=== PATIENT | female | born 1965 | race Caucasian/White ===

== ENCOUNTER 2016-09-04 18:27 | Emergency (ER) | payer BC ==
[2016-07-18 08:38] VITALS: BMI 29.8
[~2016-09-04 18:27] MED LIST: ADVAIR 250/501 DISK INH; AMITRIPTYLINE100 MG PO; ASPIRIN325 MG PO; ATIVAN1 MG PO; CRESTOR20 MG PO; DEPAKOTE500 MG PO; DICLOFENAC SODI50 MG PO; DILAUDID2 MG PO; EFFEXOR XR150 MG PO; EFFEXOR75 MG PO; GABAPENTIN100 MG PO; GLUCOPHAGE500 MG PO; GLUCOTROL 5 MG T5 MG PO; HYDROCHLOROTHIA25 MG PO; HYDROCODONE-APA1 TAB PO; IMDUR60 MG PO; ISOSORBIDE MONO60 M1 PO; KEPPRA250 MG PO; KLONOPIN1 MG PO; KLOR-CON 1010 MEQ PO; LEVEMIR100 U/M1 SC; LEVEMIR100 U/M1 SQ; LOPID600 MG; LOPID600 MG PO; LOPRESSOR50 MG PO; LYRICA50 MG PO; MELATONIN 3 MG1 TAB PO; METAGLIP 5/5001 TAB PO; METOPROLOL TART50 MG PO; MOBIC7.5 MG PO; NICODERM C1 PATCH .2 TD; NOVOLIN R100 U/ML SQ; NOVOLOG100 U/M1 SQ; OMNICEF300 MG PO; PERCOCET 10/3251 TA1 PO; PLAVIX75 MG PO; PREDNISONE20 MG PO; PROVENTIL/2.5 MG/3 M INH; RESTORIL7.5 MG PO; SEROQUEL200 MG PO; SINGULAIR10 MG PO; STERAPRED 5MG 125 MG; SYNTHROID125 MCG PO; TOPAMAX50 MG PO; TYLENOL W/CODEI1 TAB PO; VISTARIL25 MG PO; XANAX1 MG PO; ZPAK PO
== END 2016-09-04 18:51 | disposition left against medical advice (07) ==
LOC: D.ER 18:27
DX: Z02.9 Encounter for administrative examinations, unspecified (principal)

== ENCOUNTER 2016-09-26 06:29 | Day surgery (SDC) | payer BC ==
[2016-09-23 11:17] LABS: HEMATOCRIT 42.9 % (36.0-48.0); HEMOGLOBIN 14.4 g/dL (12-16); MCH 30.6 pg (26.0-34.0); MCHC 33.6 g/dL (31.0-37.0); MCV 91.3 fL (80.0-100.0); RBC 4.7 10x6/uL (4.00-5.40); RDW 14.9 % (11.5-14.5); WBC 13.3 10x3/uL (4.8-10.8)
[2016-09-23 11:25] LABS: ANION GAP 11.8 mmol/L (8-16); CALCIUM 9.2 mg/dL (8.5-10.1); CARBON DIOXIDE 30.5 mmol/L (21.0-32.0); POTASSIUM - SERUM 3.3 mmol/L (3.5-5.1)
[~2016-09-26] VITALS: Ht 170.2 cm; Wt 90.3 kg
[2016-09-26 08:57] VITALS: BP 150/88; Ht 170.2 cm; Wt 90.3 kg
--- NOTE | 2016-09-26 09:20 | NUR ---
REPORTED TO [facility] WHO WILL REPORT TO ANESTHESIA AND MD POTASSIUM 3.O BS 172 WBC 13.3
--- NOTE | 2016-09-26 10:02 | NUR ---
[address] DR[address] MATHIS IN SURGERY DR. MERINO NOTIFIED OF BS WBC ELEVATED AND POTASSIUM 3.0.
[2016-09-26] MEDS ORDERED: PERCOCET 10/3251 TA1 PO (11:55)
--- NOTE | 2016-09-26 13:03 | NUR ---
1250-HELP PT TO BATHROOM USING WALKER. PT DID OK WITH MIN ASSISTANCE. PT VOIDED AND RETURN TO BED. PT REQUESTING TRAY AND DR ELAINE.. TRAY GIVEN WILL CONTINUE TO MONITOR PT DENIES ANY N/V AT THIS TIME. FAMILY AT BEDSIDE
--- NOTE | 2016-09-26 15:56 | NUR ---
1419 REQUESTS DISCHARGE. IV DC'ED WITH CATH INTACT WITH 600ML LTC. DRESSING TO LEFT KNEE CDI. DRESSING. Elmira ASHFORD R.N. 1459 DRESSED, AWAKE & ALERT. GIVEN DISCHARGE INSTRUCTION INFORMATION PACKET INCLUDING, RX: PERCOCET 10/325MG, MED REC., POST-OP INSTRUCTIONS FOR ARTHROSCOPY OF KNEE, OPS D/C INSTRUCTIONS, & RTC APPT. PT DESIRED PHENERGAN. RX CALLED TO [facility] [address]. PT.'S WALKER DELIVERED TO ROOM. HOME WITH PT. PT VOICED UNDERSTANDING OF D/C INSTRUCTIONS. TO PRIVATE CAR PER WHEELCHAIR BY VOLUNTEER. HOME WITH SISTER. Elmira ASHFORD R.N.
--- NOTE | 2016-10-02 11:01 | OP ---
PATIENT NAME: EDITH BETANCUR MEDICAL RECORD: [id number] :65 LOCATION:D.OPS ADMISSION DATE: SURGEON: SONG MATHIS MD DATE OF OPERATION: 09/26/2016 Orthopedic Surgery Operative Note PREOPERATIVE DIAGNOSIS: Painful, symptomatic contusion of the medial femoral condyle. POSTOPERATIVE DIAGNOSIS: Painful, symptomatic contusion of the medial femoral condyle. PROCEDURE: 1. ORIF with AccuFill bone fixation. 2. Knee arthroscopy for evaluation and relook after the AccuFill was placed. SURGEON: Song Mathis MD. ANESTHESIA: General. INTRAOPERATIVE COMPLICATIONS: None. 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 OPERATIVE SUMMARY IN DETAIL: After obtaining the appropriate preoperative orthopedic surgery consent as well as anesthetic consultation, evaluation and clearance, the patient was brought to the operating room and placed on the operating table in supine position. After general laryngeal mask airway was administered, tourniquet was placed about the proximal aspect of the left lower extremity. Left lower extremity was then prepped and draped in a routine sterile fashion. The leg was elevated and exsanguinated, tourniquet inflated to 350 mmHg. Routine inferolateral portal was established followed by superior medial portal. Diagnostic arthroscopy at this point was done and showed that the patient did not have any meniscal damage. There was some chondromalacia of the medial femoral condyle. Under direct fluoroscopic visualization, then the trocar for the AccuFill side delivery system was placed in the medial femoral condyle, corresponding to the placement of the MRI where the patient had a large bony contusion. AccuFill was then placed into the medial femoral condyle. Trocar was allowed to stay the appropriate time. It was then pulled, the arthroscopy portals were closed in routine interrupted fashion using 4-0 Prolene. Sterile dressings were applied. The patient was awakened and taken to recovery room in stable condition. All final needle and sponge counts were correct. TRANSINT:[id number] Voice Confirmation ID: [id number] DOCUMENT ID: [id number] OPERATIVE REPORT [id number] EDITH BETANCUR SONG MATHIS MD at 1109 CC: [id number] DICTATION DATE: 09/26/16 1159 [employer] SYSTEM[employer] MANAGER: 09/26/16 1859 [facility] 09/26/16 [place] [id number] [place] [id number]
== END 2016-09-26 14:55 | disposition home or self-care (01) ==
LOC: D.OPS 06:29 → D.PAN 10:45 → D.OPS 11:50 → D.PAN 14:15 → D.OPS 14:55
PROVIDERS: Anesthesiology
DX: S80.02XA Contusion of left knee, initial encounter (principal); M94.262 Chondromalacia, left knee

== ENCOUNTER 2016-11-29 15:49 | Emergency (ER) | payer BC ==
[2016-09-26 08:57] VITALS: BMI 31.2
== END 2016-11-29 19:55 | disposition left against medical advice (07) ==
LOC: D.ER 15:49
DX: S69.90XA Unspecified injury of unspecified wrist, hand and finger(s), initial encounter (principal); W01.0XXA Fall on same level from slipping, tripping and stumbling without subsequent striking against object, initial encounter; Y93.89 Activity, other specified; Y92.89 Other specified places as the place of occurrence of the external cause

== ENCOUNTER 2016-12-19 19:25 | Emergency (ER) | payer BC ==
[2016-09-26 08:57] VITALS: BMI 31.2
[2016-12-19 20:01] LABS: APPEARANCE CLEAR (CLEAR); BILIRUBIN NEGATIVE (NEGATIVE); COLOR YELLOW (YELLOW); GLUCOSE NEGATIVE (NEGATIVE); KETONE NEGATIVE (NEGATIVE); LEUKOCYTE ESTERASE 1+ (NEGATIVE); NITRITE NEGATIVE (NEGATIVE); PROTEIN TRACE mg/dL (NEGATIVE); SPECIFIC GRAVITY 1.015 (1.005-1.020); UROBILINOGEN NORMAL (NORMAL)
[2016-12-19 20:02] LABS: EPITHELIAL CELLS 0-5 /hpf (0-5); RED CELLS - URINE 0-5 /hpf (0-5)
[2016-12-19 20:03] LABS: BACTERIA MANY /hpf (NONE SEEN); YEAST <1+ /hpf (NONE SEEN)
== END 2016-12-19 21:05 | disposition home or self-care (01) ==
LOC: D.ER 19:25
PROVIDERS: Nurse Practitioner Acute Care
DX: N76.0 Acute vaginitis (principal); B96.89 Other specified bacterial agents as the cause of diseases classified elsewhere; R51 Headache; J45.909 Unspecified asthma, uncomplicated; E11.9 Type 2 diabetes mellitus without complications; E78.5 Hyperlipidemia, unspecified; I10 Essential (primary) hypertension; M06.9 Rheumatoid arthritis, unspecified; F17.200 Nicotine dependence, unspecified, uncomplicated

== ENCOUNTER 2016-12-29 13:00 | Outpatient (CLI) | payer BC ==
[2016-09-26 08:57] VITALS: BMI 31.2
== END 2016-12-29 23:59 | disposition home or self-care (01) ==
LOC: D.US 13:00
DX: R10.12 Left upper quadrant pain (principal)

== ENCOUNTER → 2017-01-09 19:19 | Outpatient (CLI) | payer BC ==
[2016-09-26 08:57] VITALS: BMI 31.2
[2017-01-09 21:25] LABS: APPEARANCE HAZY (CLEAR); COLOR YELLOW (YELLOW)
[2017-01-09 21:26] LABS: BILIRUBIN NEGATIVE (NEGATIVE); GLUCOSE 100 mg/dL (NEGATIVE); KETONE NEGATIVE (NEGATIVE); LEUKOCYTE ESTERASE TRACE (NEGATIVE); NITRITE NEGATIVE (NEGATIVE); PROTEIN 2+ mg/dL (NEGATIVE); UROBILINOGEN NORMAL (NORMAL)
[2017-01-09 21:28] LABS: BACTERIA MODERATE /hpf (NONE SEEN); EPITHELIAL CELLS 0-5 /hpf (0-5); GRANULAR CAST 0-5 /lpf (NONE SEEN); HYALINE CAST OCC /lpf (NONE SEEN); RED CELLS - URINE OCC /hpf (0-5); YEAST >1+ /hpf (NONE SEEN)
== END | disposition home or self-care (01) ==
LOC: D.LABREF 19:19
PROVIDERS: Urology
DX: N39.0 Urinary tract infection, site not specified (principal)

== ENCOUNTER → 2017-01-13 12:36 | Outpatient (CLI) | payer BC ==
[2016-09-26 08:57] VITALS: BMI 31.2
== END | disposition home or self-care (01) ==
LOC: D.NM 12:36
DX: R10.12 Left upper quadrant pain (principal)

== ENCOUNTER → 2017-02-02 08:42 | Outpatient (CLI) | payer BC ==
[2016-09-26 08:57] VITALS: BMI 31.2
[2017-02-02 09:52] LABS: BASOPHILS 0.5 % (0-2); EOSINOPHILS 1.6 % (0-7); HEMATOCRIT 40.2 % (36.0-48.0); HEMOGLOBIN 13.5 g/dL (12-16); IMMATURE GRANULOCYTES 0.4 % (0-5); LYMPHOCYTES 40.3 % (15-50); MCH 30.8 pg (26.0-34.0); MCHC 33.6 g/dL (31.0-37.0); MCV 91.6 fL (80.0-100.0); MEAN PLATELET VOLUME 10.3 fL (7.4-10.4); MONOCYTES 3.5 % (2-11); NEUTROPHILS 53.7 % (40-80); PLATELET COUNT 256 10x3/uL (130-400); RBC 4.39 10x6/uL (4.00-5.40); RDW 15.9 % (11.5-14.5); WBC 14.8 10x3/uL (4.8-10.8)
[2017-02-02 10:02] LABS: APTT 30.9 SECONDS (22.8-39.4); INR 1.03 (0.85-1.17); PROTIME 13.3 SECONDS (11.6-15.0)
[2017-02-02 10:33] LABS: ALBUMIN 3.6 g/dL (3.4-5.0); ALKALINE PHOSPHATASE 182 U/L (46-116); ALT (SGPT) 28 U/L (10-68); BILIRUBIN - DIRECT 0.12 mg/dL (0.00-0.30); BILIRUBIN - INDIRECT 0.32 mg/dL (0.00-1.00); BILIRUBIN - TOTAL 0.44 mg/dL (0.2-1.3); CALC OSMOLALITY 278 mosm/kg (275-300); CARBON DIOXIDE 27.7 mmol/L (21.0-32.0); CHLORIDE - SERUM 101 mmol/L (98-107); CHOLESTEROL, TOTAL 275 mg/dL (0-200); CREATININE - SERUM 1.3 mg/dL (0.6-1.3); FERRITIN 51 ng/mL (3-244); GAMMA GT 664 U/L (5-85); GLUCOSE 140 mg/dL (74-106); HDL CHOLESTEROL 25 mg/dL (32-96); POTASSIUM - SERUM 3.1 mmol/L (3.5-5.1); SODIUM 140 mmol/L (136-145); UREA NITROGEN 6 mg/dL (7-18); eGFR NON AFRICAN AMERICAN 46 mL/min (90-120)
[2017-02-02 10:34] LABS: TRIGLYCERIDE 531 mg/dL (30-200)
[2017-02-02 10:43] LABS: % SATURATION 13 % (15-55); IRON 48 ug/dl (35-150); TOTAL IRON BIND CAPACITY 353 ug/dl (260-445); UNSAT IRON BIND CAPACITY 305 ug/dl (150-375)
[2017-02-03 09:17] LABS: ALPHA FETOPROTEIN -(TUMOR MRK) 6.8 ng/mL (0.0-8.3); HEPATITIS C ANTIBODY <0.1 (0.0-0.9)
[2017-02-03 10:21] LABS: ANA REFLEX - DIRECT Negative (Negative); FOLATE (FOLIC ACID) - SERUM 7.4 ng/mL (>3.0)
[2017-02-03 12:16] LABS: HAPTOGLOBIN 272 mg/dL (34-200)
== END | disposition home or self-care (01) ==
LOC: D.US 01-20 09:00 → D.LAB 01-20 09:00 → D.US 08:42
PROVIDERS: Internal Medicine Gastroenterology
DX: R74.8 Abnormal levels of other serum enzymes (principal)

== ENCOUNTER 2017-02-08 07:18 | Outpatient (CLI) | payer BC ==
[~2017-02-08] VITALS: Ht 170.2 cm; Wt 89.5 kg
[2017-02-08] MEDS ORDERED: KLONOPIN1 MG PO (08:23)
[2017-02-08] MEDS ORDERED: CELEXA40 MG PO (08:23)
[2017-02-08] MEDS ORDERED: GABAPENTIN100 MG PO (08:23)
[2017-02-08] MEDS ORDERED: VITAMIN D250000 UNIT PO (08:24)
[2017-02-08] MEDS ORDERED: SEROQUEL200 MG PO (08:25)
[2017-02-08 08:31] VITALS: BP 156/87; Ht 170.2 cm; Wt 89.5 kg
[2017-02-08 09:03] LABS: BASOPHILS 0.8 % (0-2); EOSINOPHILS 2.1 % (0-7); HEMATOCRIT 41.5 % (36.0-48.0); HEMOGLOBIN 14.3 g/dL (12-16); IMMATURE GRANULOCYTES 0.3 % (0-5); LYMPHOCYTES 36.9 % (15-50); MCH 31.6 pg (26.0-34.0); MCHC 34.5 g/dL (31.0-37.0); MCV 91.8 fL (80.0-100.0); MEAN PLATELET VOLUME 10.4 fL (7.4-10.4); NEUTROPHILS 54.9 % (40-80); PLATELET COUNT 263 10x3/uL (130-400); RBC 4.52 10x6/uL (4.00-5.40); WBC 13.3 10x3/uL (4.8-10.8)
[2017-02-08 09:16] LABS: ANION GAP 16.2 mmol/L (8-16); CALCIUM 9.1 mg/dL (8.5-10.1); CREATININE - SERUM 1.3 mg/dL (0.6-1.3); POTASSIUM - SERUM 3.2 mmol/L (3.5-5.1)
[2017-02-08 09:35] LABS: INR 1.07 (0.85-1.17); PROTIME 13.8 SECONDS (11.6-15.0)
--- NOTE | 2017-02-08 16:39 | NUR ---
1155--ALL VITAL SIGNS CHARTED ON POST PROCEDURE VITAL SIGN SHEET ON CHART. ETHEL RN
--- NOTE | 2017-02-08 16:44 | NUR ---
1440--IV BAG EMPTY, IV DC'D. ETHEL RN 3362--DISCHARGE INSTRUCTIONS GIVEN, PT VERBALIZES UNDERSTANDING. PT OFF UNIT VIA WC. ETHEL GARCIA
== END 2017-02-08 15:40 | disposition home or self-care (01) ==
LOC: D.OPS 07:18 → D.CT 10:00 → D.OPS 15:40
PROVIDERS: Specialist
DX: D72.820 Lymphocytosis (symptomatic) (principal); D72.829 Elevated white blood cell count, unspecified; R53.83 Other fatigue; R94.5 Abnormal results of liver function studies; Z01.812 Encounter for preprocedural laboratory examination

== ENCOUNTER 2017-02-20 05:33 | Outpatient (CLI) | payer BC ==
[~2017-02-20] VITALS: Ht 170.2 cm; Wt 88.6 kg
[~2017-02-20 05:33] MED LIST changes: +CELEXA40 MG PO; +VITAMIN D250000 UNIT PO
[2017-02-20 06:50] LABS: BASOPHILS 0.7 % (0-2); EOSINOPHILS 2.9 % (0-7); HEMATOCRIT 40.3 % (36.0-48.0); HEMOGLOBIN 13.7 g/dL (12-16); IMMATURE GRANULOCYTES 0.3 % (0-5); LYMPHOCYTES 41.2 % (15-50); MCV 91.2 fL (80.0-100.0); MEAN PLATELET VOLUME 10.8 fL (7.4-10.4); MONOCYTES 3.7 % (2-11); NEUTROPHILS 51.2 % (40-80); PLATELET COUNT 280 10x3/uL (130-400); RBC 4.42 10x6/uL (4.00-5.40); RDW 15.6 % (11.5-14.5); WBC 12.6 10x3/uL (4.8-10.8)
[2017-02-20 07:02] LABS: APTT 33.8 SECONDS (22.8-39.4); INR 1.06 (0.85-1.17); PROTIME 13.7 SECONDS (11.6-15.0)
[2017-02-20 07:07] LABS: ANION GAP 12.8 mmol/L (8-16); CALCIUM 8.9 mg/dL (8.5-10.1); CREATININE - SERUM 1.4 mg/dL (0.6-1.3)
[2017-02-20 07:12] LABS: POTASSIUM - SERUM 2.8 mmol/L (3.5-5.1)
[2017-02-20 07:25] VITALS: BP 152/86; Ht 170.2 cm; Wt 88.6 kg
--- NOTE | 2017-02-20 07:46 | NUR ---
0715 LAB CALLED CRITICAL POPTASSIUM TO ADAN FIELDS R.N. [address] JOHNSON BY JO-ANN DUNBAR OF POTASSIUM 2.8 AND WBC 12.6 AMD CREATININE 1.4.
--- NOTE | 2017-02-20 08:26 | NUR ---
0815 REPORT[address] DOWNS ORDERS RECIEVED. MED GIVEN AND TO PROCEED WITH BIOPSY.
== END 2017-02-20 14:10 | disposition home or self-care (01) ==
LOC: D.OPS 05:33 → D.SP 08:00 → D.OPS 08:00
PROVIDERS: Specialist
DX: R74.8 Abnormal levels of other serum enzymes (principal); E11.9 Type 2 diabetes mellitus without complications; Z01.812 Encounter for preprocedural laboratory examination

== ENCOUNTER 2017-03-06 05:59 | Day surgery (SDC) | payer BC ==
[2017-03-06 06:34] LABS: EOSINOPHILS 2.8 % (0-7); HEMATOCRIT 37.3 % (36.0-48.0); IMMATURE GRANULOCYTES 0.3 % (0-5); LYMPHOCYTES 41.9 % (15-50); MCH 31.6 pg (26.0-34.0); MCHC 34.9 g/dL (31.0-37.0); MCV 90.8 fL (80.0-100.0); MEAN PLATELET VOLUME 10.3 fL (7.4-10.4); MONOCYTES 5.6 % (2-11); NEUTROPHILS 48.4 % (40-80); RBC 4.11 10x6/uL (4.00-5.40); RDW 15.3 % (11.5-14.5)
[2017-03-06 06:35] LABS: PLATELET COUNT 222 10x3/uL (130-400)
[2017-03-06 06:55] LABS: ANION GAP 12.3 mmol/L (8-16); CALCIUM 10.6 mg/dL (8.5-10.1); CARBON DIOXIDE 31.5 mmol/L (21.0-32.0); CREATININE - SERUM 1.3 mg/dL (0.6-1.3)
[2017-03-06 07:08] LABS: POTASSIUM - SERUM 2.8 mmol/L (3.5-5.1)
[2017-03-06 07:18] VITALS: BP 145/75; Ht 170.2 cm
[2017-03-06] MEDS ORDERED: PROTONIX40 MG PO (09:18)
--- NOTE | 2017-03-07 16:20 | OP ---
PATIENT NAME: EDITH BETANCUR MEDICAL RECORD: [id number] :65 LOCATION:DCARYL ADMISSION DATE: SURGEON: ASHLY DOWNS DO DATE OF OPERATION: 03/06/2017 PROCEDURE: EGD with biopsies. INDICATIONS FOR PROCEDURE: Epigastric pain, heartburn, nausea and vomiting. SCOPE: Olympus video gastroscope. MEDICATIONS: Propofol 200 mg IV per anesthesia. ESTIMATED BLOOD LOSS: Less than 2 mL. COMPLICATIONS: None. FINDINGS: Informed consent was given. The patient was made comfortable with the above medication. After reaching an adequate level of sedation by slow IV push, the patient was placed on her left side. The endoscope was then advanced under direct visualization through the mouth to the second portion of the duodenum. The upper, middle, and lower thirds of the esophagus appeared normal. At the GE junction, there was evidence of mild LA class A reflux-induced esophagitis. The endoscope was advanced beyond the GE junction into the stomach and retroflexed to view the cardia, which appeared normal. In the fundus and body of the stomach, there were some benign appearing fundic gland type gastric polyps. A single biopsy was taken of one of the polyps to confirm this. In the body, antrum, and prepyloric region, there was some erythema and granularity consistent with gastritis within the stomach. A random biopsy was taken to submit for histology and to rule out H. pylori. The endoscope was advanced beyond the pylorus into the duodenum where the bulb and second portion of the duodenum appeared normal other than a mild appearance of some patchy areas of atrophy of the villous mucosa. Two biopsies were taken to submit for histology regarding the endoscopic appearance. The endoscope was then withdrawn from the patient. The patient tolerated the procedure well and there were no complications. IMPRESSION: 1. Mild LA class A reflux-induced esophagitis. 2. Gastric polyps which appeared to be benign fundic gland polyps, biopsy taken. 3. Erythema and granularity of the stomach consistent with gastritis, biopsies taken. 4. Atrophy of the villous mucosa in the duodenum, biopsies taken. PLAN AND RECOMMENDATIONS: 1. Discharge home when recovery parameters are met. 2. Follow up biopsy specimen results. 3. Continue current diet. 4. Protonix 40 mg daily times 30 days. 5. Follow up with Dr. Venegas regarding the biliary dyskinesia. 6. Further recommendations to follow pathology results once received. TRANSINT:[id number] Voice Confirmation ID: [id number] DOCUMENT ID: [id number] OPERATIVE REPORT [id number] EDITH BETANCUR NATHAN A DO at 1620 CC: [id number] DICTATION DATE: 03/06/17905 DREDGE MASTER: 03/06/17 1243 [facility] 03/06/17 [place] [id number] [place] [id number]
== END 2017-03-06 09:50 | disposition home or self-care (01) ==
LOC: D.OPS 05:59
PROVIDERS: Anesthesiology
DX: K21.0 Gastro-esophageal reflux disease with esophagitis (principal); K31.7 Polyp of stomach and duodenum; K63.89 Other specified diseases of intestine; Z01.812 Encounter for preprocedural laboratory examination; R12 Heartburn

== ENCOUNTER → 2017-03-14 10:12 | Outpatient (CLI) | payer BC ==
[~2017-03-14 10:12] MED LIST changes: +PROTONIX40 MG PO
== END | disposition home or self-care (01) ==
LOC: D.CT 03-08 10:30
DX: R93.5 Abnormal findings on diagnostic imaging of other abdominal regions, including retroperitoneum (principal); K86.89 Other specified diseases of pancreas

== ENCOUNTER 2017-03-17 06:07 | Day surgery (SDC) | payer BC ==
[~2017-03-17] VITALS: Ht 170.2 cm; Wt 89.8 kg
[2017-03-17 07:26] LABS: HEMATOCRIT 36.9 % (36.0-48.0); HEMOGLOBIN 12.4 g/dL (12-16); LYMPHOCYTES 37.6 % (15-50); MCH 31.3 pg (26.0-34.0); MCHC 33.6 g/dL (31.0-37.0); MCV 93.2 fL (80.0-100.0); MEAN PLATELET VOLUME 9.5 fL (7.4-10.4); NEUTROPHILS 55.6 % (40-80); PLATELET COUNT 251 10x3/uL (130-400); RBC 3.96 10x6/uL (4.00-5.40); WBC 11.3 10x3/uL (4.8-10.8)
[2017-03-17 07:41] LABS: ANION GAP 14.2 mmol/L (8-16); CALCIUM 9.3 mg/dL (8.5-10.1); CARBON DIOXIDE 28.3 mmol/L (21.0-32.0); CREATININE - SERUM 1.1 mg/dL (0.6-1.3); POTASSIUM - SERUM 3.5 mmol/L (3.5-5.1)
[2017-03-17 08:19] VITALS: BP 116/66; Ht 170.2 cm; Wt 89.8 kg
[2017-03-17] MEDS ORDERED: DILAUDID2 MG PO (10:22)
--- NOTE | 2017-03-18 14:41 | OP ---
PATIENT NAME: EDITH BETANCUR MEDICAL RECORD: [id number] :65 LOCATION:D.OPS ADMISSION DATE: SURGEON: AMANDO YUEN MD DATE OF OPERATION: 03/17/2017 PREOPERATIVE DIAGNOSES: 1. Biliary dyskinesia. 2. Coronary artery disease. 3. Hypertension. 4. Chronic obstructive pulmonary disease. 5. Diabetes mellitus. 6. Tobacco dependence syndrome. POSTOPERATIVE DIAGNOSES: 1. Biliary dyskinesia. 2. Coronary artery disease. 3. Hypertension. 4. Chronic obstructive pulmonary disease. 5. Diabetes mellitus. 6. Tobacco dependence syndrome. 7. Liver cirrhosis. SURGEON: Amando Yuen MD. REPORT OF PROCEDURE: The patient's abdomen was prepped and draped in sterile fashion. A cutdown was made on the superior aspect of the umbilicus, 0 Vicryls were placed on the fascia bilaterally and the fascia was incised with 15-blade. I then bluntly entered the peritoneal cavity and placed a 12-mm Elva port. Under direct visualization, a 5 mm trocar was placed in the epigastrium and 2 more 5-mm trocars were placed in the right subcostal region. The gallbladder was grasped and elevated. The liver was noted to be cirrhotic with a cobblestone type appearance and it was noted to be markedly enlarged. The gallbladder itself appeared to be normal with no signs of any inflammatory changes. The cystic artery and cystic duct were dissected free and these were clipped proximally and distally and ligated in standard fashion. The gallbladder was taken off the liver bed using electrocautery and placed in the right upper quadrant. Any bleeding from the liver bed was treated with electrocautery. At this point, a Micha-Cut liver biopsy tool was brought through the abdominal wall and biopsies were performed of the liver times 4. Any bleeding from the liver was then treated with electrocautery. The ports and insufflation were then removed and the gallbladder was taken out through the umbilicus. The umbilical fascia was closed with interrupted 0 Vicryls times 3. The wounds were irrigated out with normal saline and infused with 10 mL of 0.25% Marcaine with epinephrine. The skin incisions were closed with subcutaneous 5-0 Monocryl and dressed appropriately. COMPLICATIONS: None. CONDITION: Stable. ANESTHESIA: General endotracheal and local. BLOOD LOSS: Minimal. TRANSINT:[id number] Voice Confirmation ID: [id number] DOCUMENT ID: [id number] OPERATIVE REPORT [id number] EDITH BETANCUR CHRISTIAN MD at 1441 CC: MORGAN AYOUB DO [id number] DICTATION DATE: 03/17/17 1025 COMMUNICATIONS ASSOCIATE: 03/17/17 1617 [facility] 03/17/17 [place] [id number] [place] [id number]
== END 2017-03-17 14:21 | disposition home or self-care (01) ==
LOC: D.OPS 06:07 → D.PAN 08:30 → D.OPS 12:30 → D.PAN 12:30 → D.OPS 14:21
PROVIDERS: Surgery
DX: K82.8 Other specified diseases of gallbladder (principal); I25.10 Atherosclerotic heart disease of native coronary artery without angina pectoris; I10 Essential (primary) hypertension; J44.9 Chronic obstructive pulmonary disease, unspecified; E11.9 Type 2 diabetes mellitus without complications; F17.200 Nicotine dependence, unspecified, uncomplicated; K74.60 Unspecified cirrhosis of liver; Z01.812 Encounter for preprocedural laboratory examination

== ENCOUNTER 2017-03-18 01:15 | Emergency (ER) | payer BC ==
[2017-03-17 08:19] VITALS: BMI 31.1
[2017-03-18 01:56] LABS: BASOPHILS 0.1 % (0-2); EOSINOPHILS 0.8 % (0-7); HEMATOCRIT 36.8 % (36.0-48.0); HEMOGLOBIN 12.1 g/dL (12-16); IMMATURE GRANULOCYTES 0.6 % (0-5); LYMPHOCYTES 6.1 % (15-50); MCH 31.8 pg (26.0-34.0); MCHC 32.9 g/dL (31.0-37.0); MEAN PLATELET VOLUME 9.9 fL (7.4-10.4); MONOCYTES 4.2 % (2-11); NEUTROPHILS 88.2 % (40-80); PLATELET COUNT 233 10x3/uL (130-400); RDW 16.1 % (11.5-14.5); WBC 11.7 10x3/uL (4.8-10.8)
[2017-03-18 01:58] LABS: MCV 96.8 fL (80.0-100.0)
[2017-03-18 02:10] LABS: ALBUMIN 3.3 g/dL (3.4-5.0); ANION GAP 14.4 mmol/L (8-16); BILIRUBIN - TOTAL 0.7 mg/dL (0.2-1.3); CALCIUM 8.6 mg/dL (8.5-10.1); CARBON DIOXIDE 25.5 mmol/L (21.0-32.0); POTASSIUM - SERUM 3.9 mmol/L (3.5-5.1); PROTEIN - SERUM 7.6 g/dL (6.4-8.2)
[2017-03-18 02:12] LABS: CREATININE - SERUM 1.4 mg/dL (0.6-1.3)
== END 2017-03-18 05:10 | disposition home or self-care (01) ==
LOC: D.ER 01:15
PROVIDERS: Emergency Medicine
DX: G89.18 Other acute postprocedural pain (principal); E11.9 Type 2 diabetes mellitus without complications; I10 Essential (primary) hypertension

== ENCOUNTER 2017-03-19 17:35 | Emergency (ER) | payer BC ==
[2017-03-17 08:19] VITALS: BMI 31.1
== END 2017-03-19 19:50 | disposition home or self-care (01) ==
LOC: D.ER 17:35
DX: G89.18 Other acute postprocedural pain (principal); T81.31XA Disruption of external operation (surgical) wound, not elsewhere classified, initial encounter; I10 Essential (primary) hypertension; E11.9 Type 2 diabetes mellitus without complications

== ENCOUNTER 2017-04-10 06:12 | Day surgery (SDC) | payer BC ==
[~2017-04-10] VITALS: Ht 170.2 cm; Wt 88.6 kg
[2017-04-10 06:57] VITALS: BP 137/79; Ht 170.2 cm; Wt 88.6 kg
[2017-04-10 07:05] LABS: BASOPHILS 1.2 % (0-2); EOSINOPHILS 9.8 % (0-7); HEMATOCRIT 37.8 % (36.0-48.0); HEMOGLOBIN 13.1 g/dL (12-16); IMMATURE GRANULOCYTES 0.2 % (0-5); LYMPHOCYTES 39.4 % (15-50); MCH 31.7 pg (26.0-34.0); MCHC 34.7 g/dL (31.0-37.0); MCV 91.5 fL (80.0-100.0); MEAN PLATELET VOLUME 9.9 fL (7.4-10.4); MONOCYTES 3.1 % (2-11); NEUTROPHILS 46.3 % (40-80); RBC 4.13 10x6/uL (4.00-5.40); RDW 15.7 % (11.5-14.5); WBC 12.4 10x3/uL (4.8-10.8)
[2017-04-10 07:17] LABS: ANION GAP 16.3 mmol/L (8-16); CALCIUM 8.7 mg/dL (8.5-10.1); CARBON DIOXIDE 24.7 mmol/L (21.0-32.0); CREATININE - SERUM 1.3 mg/dL (0.6-1.3); PLATELET COUNT 293 10x3/uL (130-400)
--- NOTE | 2017-04-10 10:17 | NUR ---
1015-RECD FROM GI LAB. DR DOWNS IN TO REPORT FINDINGS.
--- NOTE | 2017-04-10 10:39 | NUR ---
1030-FULL LIQUIDS SERVED. PASSING FLATUS, DENIES NAUSEA.
--- NOTE | 2017-04-10 11:41 | NUR ---
1115-[facility] HERE TO TRANSPORT. D/C VIA WHEELCHAIR.
--- NOTE | 2017-04-10 12:43 | OP ---
PATIENT NAME: EDITH BETANCUR MEDICAL RECORD: [id number] :65 LOCATION:DCARYL ADMISSION DATE: SURGEON: ASHLY DOWNS DO DATE OF OPERATION: 04/10/2017 PROCEDURE: Colonoscopy with polypectomy. INDICATION FOR PROCEDURE: Screening for colorectal cancer. SCOPE: Olympus video pediatric colonoscope. MEDICATIONS: Propofol 640 mg IV per anesthesia. WITHDRAWAL TIME: 32 minutes. ESTIMATED BLOOD LOSS: Minimal. COMPLICATIONS: None. FINDINGS: Informed consent was given. The patient was made comfortable with the above medication. After reaching an adequate level of sedation by slow IV push, the patient was placed on her left side. The endoscope was then advanced under direct visualization through the rectum to the cecum with visualization of the appendiceal orifice and the ileocecal valve. In the cecum, there was a large polyp measuring approximately 1 cm in size. An attempt was made to lift it with saline, but it did not lift easily. A snare was placed around the polyp and it was mobile, so a hot snare polypectomy was performed in one piece. The polyp was completely retrieved. A single endoclip was placed to close the defect and stop bleeding that was not stopping spontaneously. In the ascending colon, there was a single benign-appearing sessile polyp which measured 2 mm in diameter. It was removed using hot forceps. In the transverse colon, there were 2 separate polyps which were benign appearing and sessile, measuring approximately 4 mm to 6 mm in size. They were removed using a hot snare in one piece and completely retrieved. In the descending colon, there were 3 benign-appearing sessile polyps ranging in size from 3 mm to 6 mm in diameter. They were all removed using hot snare in one piece and completely retrieved. In the sigmoid colon, there were 2 polyps which were benign appearing and sessile, ranging in size from 3 mm to 4 mm in diameter. They were removed using hot snare in one piece and completely retrieved. Retroflexion was performed in the rectum with a normal-appearing rectal vault. The scope was withdrawn from the patient. The patient tolerated the procedure well and there were no complications. IMPRESSION: Multiple polyps as described above, removed using hot forceps and hot snares, with an attempted saline injection submucosally on a single polyp. A single endoclip was used to close the defect in the cecum regarding the largest polyp and to stop bleeding. PLAN AND RECOMMENDATIONS: 1. Discharge home when recovery parameters are met. 2. Continue current diet. 3. Continue current medications. 4. Followup biopsy specimen results. 5. Recall colonoscopy in one year based on number and size of polyps removed. OPERATIVE REPORT [id number] SIVTONE TRANSINT:[id number] Voice Confirmation ID: [id number] DOCUMENT ID: [id number] ASHLY DOWNS DO at 1243 CC: [id number] DICTATION DATE: 04/10/17 0957 SPANISH SPEAKING NANNY: 04/10/17 1202 [facility] 04/10/17 [place] [id number] [place] [address]
== END 2017-04-10 11:15 | disposition home or self-care (01) ==
LOC: D.OPS 06:12
PROVIDERS: Anesthesiology
DX: Z12.11 Encounter for screening for malignant neoplasm of colon (principal); D12.0 Benign neoplasm of cecum; D12.2 Benign neoplasm of ascending colon; D12.3 Benign neoplasm of transverse colon; D12.4 Benign neoplasm of descending colon; D12.5 Benign neoplasm of sigmoid colon; F17.200 Nicotine dependence, unspecified, uncomplicated; J44.9 Chronic obstructive pulmonary disease, unspecified; I10 Essential (primary) hypertension; E11.9 Type 2 diabetes mellitus without complications; E03.9 Hypothyroidism, unspecified; K21.9 Gastro-esophageal reflux disease without esophagitis; Z01.812 Encounter for preprocedural laboratory examination

== ENCOUNTER → 2017-05-11 20:23 | Outpatient (CLI) | payer BC ==
[2017-04-10 06:57] VITALS: BMI 30.6
[~2017-05-11 20:23] MED LIST changes: +ATARAX 25 MG TA25 MG PO; +ELIQUIS2.5 MG PO
== END | disposition home or self-care (01) ==
LOC: D.LABREF 20:23
DX: M17.12 Unilateral primary osteoarthritis, left knee (principal); Z11.8 Encounter for screening for other infectious and parasitic diseases

== ENCOUNTER 2017-05-31 10:00 | Inpatient (IN) | payer BC ==
[~2017-05-31] VITALS: Ht 170.2 cm; Wt 88.5 kg
[~2017-05-31 10:00] MED LIST changes: -ELIQUIS2.5 MG PO
[2017-05-31 11:16] LABS: EOSINOPHILS 5.1 % (0-7); HEMATOCRIT 40.7 % (36.0-48.0); HEMOGLOBIN 13.8 g/dL (12-16); IMMATURE GRANULOCYTES 0.2 % (0-5); LYMPHOCYTES 37.3 % (15-50); MCH 31.6 pg (26.0-34.0); MCHC 33.9 g/dL (31.0-37.0); MCV 93.1 fL (80.0-100.0); MEAN PLATELET VOLUME 10.6 fL (7.4-10.4); MONOCYTES 5.4 % (2-11); PLATELET COUNT 272 10x3/uL (130-400); RBC 4.37 10x6/uL (4.00-5.40); RDW 15.8 % (11.5-14.5); WBC 12.7 10x3/uL (4.8-10.8)
[2017-05-31 11:29] LABS: ANION GAP 11.6 mmol/L (8-16); CALCIUM 9.8 mg/dL (8.5-10.1); CREATININE - SERUM 1.2 mg/dL (0.6-1.3)
[2017-05-31 11:36] LABS: APTT 36.4 SECONDS (22.8-39.4); INR 1.02 (0.85-1.17); PROTIME 13.3 SECONDS (11.6-15.0)
[2017-05-31 11:40] LABS: POTASSIUM - SERUM 2.6 mmol/L (3.5-5.1)
--- NOTE | 2017-05-31 11:49 | NUR ---
DEVENDRA YANG, NOTIFIED CRITICAL LOW POTASSIUM 2.6.
[2017-05-31 12:10] LABS: APPEARANCE CLEAR (CLEAR); BILIRUBIN NEGATIVE (NEGATIVE); COLOR YELLOW (YELLOW); GLUCOSE NEGATIVE (NEGATIVE); KETONE NEGATIVE (NEGATIVE); NITRITE NEGATIVE (NEGATIVE); PROTEIN 1+ mg/dL (NEGATIVE); UROBILINOGEN NORMAL (NORMAL)
[2017-05-31 12:11] LABS: BACTERIA FEW /hpf (NONE SEEN); EPITHELIAL CELLS 0-5 /hpf (0-5); GRANULAR CAST OCC /lpf (NONE SEEN); HYALINE CAST RARE /lpf (NONE SEEN); MUCUS <1+ /lpf (NONE SEEN); RED CELLS - URINE RARE /hpf (0-5); WHITE CELLS - URINE OCC /hpf (0-5)
[2017-06-05] VITALS (14 sets, daily range): BP systolic 90–137; BP diastolic 49–81; BMI 30.6
--- NOTE | 2017-06-05 09:30 | NUR ---
RECIEVED TO ROOM 2209 FROM RECOVERY ROOM VIA BED. DROWSY BUT AWAKENS TO VERBAL STIMULI. IV TO R FA PATENT. DRESSING TO L KNEE C/D/I. SCD IN USE TO R LEG. O2 4L NC IN USE. VSS. DENIES ANY COMPLAINT OF PAIN AT THIS TIME.
--- NOTE | 2017-06-05 10:36 | NUR ---
RESTING QUIETLY WITH EYES CLOSED. RESP EVEN,NONLABORED. O2 SAT 97% ON 2L NC. ICEPACK IN USE TO L KNEE.
--- NOTE | 2017-06-05 12:17 | NUR ---
REMAINS DROWSY. REPOSITIONED TO LEFT SIDE. O2 SAT 96%.
--- NOTE | 2017-06-05 14:55 | NUR ---
CONTINUES RESTING QUIETLY WITH EYES CLOSED. RESP EVEN,NONLABORED.
--- NOTE | 2017-06-05 18:19 | NUR ---
COMPLAINING OF PAIN TO L KNEE. NORCO 10 MG GIVEN. CPM IN USE.
--- NOTE | 2017-06-05 19:35 | NUR ---
RECIEVED SHIFT REPORT. PT IS LYING IN BED. ALERT AND ORIENTED AND ABLE TO VERBALIZE NEEDS. IV IS PATENT AND FLUIDS ARE RUNNING PER ORDER. O2 @ 1 PER NASAL CANNULA. SCD'S ON. CPM ON. DRESSING TO LEFT KNEE C/D/I. PT STATES PAIN IS 5/10. NO NEEDS ARE VERBALIZED AT THIS TIME. WILL CONTINUE TO MONITOR. SIDE RAILS ARE UP X 2. BED IS IN LOWEST POSITION. BED ALARM IS ON FOR SAFETY. CALL LIGHT IS WITHIN REACH.
--- NOTE | 2017-06-05 20:47 | NUR ---
SHIFT ASSESSMENT COMPLETED. NIGHT MEDS GIVEN WITH NO PROBLEMS. NO NEEDS ARE VOICED. WILL MONITOR. SIDE RAILS X 2. BED LOW. BED ALARM ON. CALL LIGHT IN REACH.
[2017-06-06 04:00] VITALS: BP 104/59
[2017-06-06 05:36] LABS: HEMATOCRIT 32.9 % (36.0-48.0); HEMOGLOBIN 10.8 g/dL (12-16); MCH 31.2 pg (26.0-34.0); MCHC 32.8 g/dL (31.0-37.0); MCV 95.1 fL (80.0-100.0); MEAN PLATELET VOLUME 10.8 fL (7.4-10.4); RBC 3.46 10x6/uL (4.00-5.40); RDW 15.7 % (11.5-14.5); WBC 12.1 10x3/uL (4.8-10.8)
--- NOTE | 2017-06-06 07:30 | NUR ---
PT ASSESSMENT COMPLETE SEE FLOWSHEET FOR COMPLETE ASSESSMENT PT AROUSES TO VERBAL STIMULI ALERT AND ORINETD X 3 LUNGS CLEAR BILATERALLY. BSA X [address] TO LEFT KNEE TO BE OFF AT 0845 WILL MONITOR FOR PAIN CONTROL. ALL ADLS PER STAFF ASSIST
--- NOTE | 2017-06-06 08:05 | NUR ---
PT SEEN. NO COMPLAINTS AT PRESENT. STATES PAIN CONTROL IS GOOD AT MOMENT. KNEE CURRENTLY IN CPM MACHINE-ABLE TO WIGGLE TOES FREELY-PINK AND WARM-BED ALARM ON FOR SAFETY. CALL LIGHT IN REACH
[2017-06-06 10:18] VITALS: BP 102/65
[2017-06-06 12:17] VITALS: BP 105/54
[2017-06-06 12:28] VITALS: Ht 170.2 cm; Wt 88.5 kg
--- NOTE | 2017-06-06 13:38 | NUR ---
PT COMPLAIN OF UNRELEIVED PAIN AFTER PAIN MEDS X 2 NORCO AND PERCOCET TORADOL 30 MG GIVEN SLOW IVP. WILL MONITOR FOR PAIN CONTROL.
--- NOTE | 2017-06-06 15:12 | NUR ---
NO DISTRESS NOTED CALL LIGHT IN REACH
[2017-06-06 15:46] VITALS: BP 111/49
--- NOTE | 2017-06-06 19:35 | NUR ---
RECIEVED SHIFT REPORT. PT IS LYING IN BED. ALERT AND ORIENTED AND ABLE TO VERBALIZE NEEDS. IV IS PATENT AND SALINE LOC AT THIS TIME. PT CAN GET UP WITH ASSISTANCE BUT STATES SHE IS IN TOO MUCH PAIN TO DO SO. CPM ON. SCD'S ON. PT STATES PAIN IS 7/10. NO NEEDS ARE VERBALIZED AT THIS TIME. WILL CONTINUE TO MONITOR. SIDE RAILS ARE UP X 2. BED IS IN LOWEST POSITION. BED ALARM IS ON FOR SAFETY. CALL LIGHT IS WITHIN REACH.
[2017-06-06 20:00] VITALS: BP 120/53
--- NOTE | 2017-06-06 22:36 | NUR ---
SHIFT ASSESSMENT COMPLETED. NIGHT MEDS GIVEN WITH NO PROBLEMS. PT C/O PAIN 04/02. ADMINISTERED PRESCRIBED PRN NORCO PER ORDER. PT RECIEVED NO INSULIN PER SLIDING SCALE FOR FOQK=909. SCHEDULED LEVEMIR ADMINISTERED PER ORDER. SNACK PROVIDED. NO NEEDS ARE VOICED. WILL MONITOR. SIDE RAILS X 2. BED LOW. BED ALARM ON. CALL LIGHT IN REACH.
[2017-06-07] VITALS: BP 129/62
[2017-06-07 04:00] VITALS: BP 115/53
[2017-06-07 06:01] LABS: HEMATOCRIT 30.4 % (36.0-48.0); HEMOGLOBIN 10.1 g/dL (12-16); MCH 31.2 pg (26.0-34.0); MCHC 33.2 g/dL (31.0-37.0); MCV 93.8 fL (80.0-100.0); MEAN PLATELET VOLUME 10.8 fL (7.4-10.4); RBC 3.24 10x6/uL (4.00-5.40); RDW 15.3 % (11.5-14.5)
--- NOTE | 2017-06-07 06:14 | NUR ---
FOUND PT WITHOUT SUPPLEMENTAL O2 ON. SPO2 87 ON RA. REAPPLIED VIA NC AND INCREASED TO 2L.PT CURRENT SPO2 92. BILATERAL DIMININSHED BREATH SOUNDS TO ANTERIOR RIDDLE OF AUSCULTATION EQUALATERAL EXCURSION NO S/S IMMEDIATED RESP DISTRESS
--- NOTE | 2017-06-07 07:30 | NUR ---
RESTING QUIETLY WITH EYES CLOSED. RESP EVEN,NONLABORED.
[2017-06-07 08:09] VITALS: BP 99/53
--- NOTE | 2017-06-07 10:30 | NUR ---
ASSESSMENT COMPLETE. SL TO R FA PATENT.O2 2.5L NC IN USE. BED ALARM IN USE. DRESSING C/D/I TO L KNEE. DENIES ANY NEEDS AT PRESENT.
--- NOTE | 2017-06-07 11:25 | NUR ---
SITTING UP IN CHAIR. PAT GIVEN FOR COMPLAINT OF KNEE PAIN. VISITING WITH COMPANY.
[2017-06-07 12:51] VITALS: BP 100/50
--- NOTE | 2017-06-07 13:09 | NUR ---
NO CHANGES NOTED AT PRESENT.
--- NOTE | 2017-06-07 14:18 | NUR ---
Patient Name: EDITH BETANCUR Admission Status: Elective Accout number: [id number] Admission Date: 06-05-2017 : 1965 Admission Diagnosis:UNILATERAL PRIMARY OSTEOARTHRITIS, LEFT KNEE Attending: SONG MATHIS Current LOS: 2 Anticipated DC Date: Planned Disposition: Home Primary Insurance: [employer] O Discharge Planning Comments: CM met with patient to assess discharge planning needs. Patient states that she lives independently with her parents and son & that is where she will return. Either her sister or her father will be the one to drive her home. She has a bed side commode, shower chair and walker at home. She would like to do her PT at [facility] as an Out Patient. CM will set that up at discharge. Patient has 5 steps to enter in her home. Patient says it is safe for her to return. CM will continue to follow and assist with discharge planning needs. PCP: [facility] [address] Katelyn Decker (Mother) Hazmat Truck Driver: Susan Nguyễn * Is the patient Alert and Oriented? Yes 0 * How many steps to enter\exit or inside your home? 5 0 * PCP sincere 0 * Pharmacy [facility] [address] * Preadmission Environment Home with Family 0 * ADLs Total Dependent 0 * Equipment Bedside Commode Shower Chair Walker 0 * List name and contact numbers for known caregivers / representatives who currently or will assist patient after discharge: Katelyn Decker mother [phone] 0 * Community resources currently utilized None 0 * Additional services required to return to the preadmission environment? Yes 0 * Can the patient safely return to the preadmission environment? Yes 0 * Has this patient been hospitalized within the prior 30 days at any hospital? No 0 [place] Total: 0
[2017-06-07 15:36] VITALS: BP 113/67
--- NOTE | 2017-06-07 18:46 | NUR ---
NO CHANGES NOTED AT PRESENT.
[2017-06-07 20:00] VITALS: BP 123/59
--- NOTE | 2017-06-07 21:51 | NUR ---
REC'D LYING IN BED. CPM MACHINE ON LEFT LEG, IS TO BE REMOVED AT 2100. ALERT AND ORIENTED X4. REPORTED PAIN 8/10. WILL ADMIN PAIN MEDS PRESCRIBED. DENIED NEEDS AT THIS TIME. INSTRUCTED TO CALL IF NEEDED ANYTHING, VERBALIZED UNDERSTANDING. BED LOW, LOCKED, CALL LIGHT IN REACH, ALARM ON. NO DISTRESS NOTED. WILL CONT TO MONITOR.
[2017-06-08] VITALS: BP 130/57
--- NOTE | 2017-06-08 02:00 | NUR ---
PT RESTING IN BED WITH NO DISTRESS. RESPIRATIONS ARE EVEN AND UNLABORED. SIDE RAILS X 2. BED LOW. CALL LIGHT IN REACH.
[2017-06-08 04:00] VITALS: BP 128/60
--- NOTE | 2017-06-08 07:30 | NUR ---
PT STATED PAIN MEDICINE IS NOT WORKING WANTED TO TALK WITH DR TO HAVE CHANGED, PT ALSO CONPLAINED OF MUSCLE SPASMS IN UPPER ARM, PT STATED TORADOL HELPS BUT NOT DUE UNTIL 11, CONTINUE WITH PT CARE
[2017-06-08] MEDS ORDERED: ELIQUIS2.5 MG PO (08:05)
[2017-06-08] MEDS ORDERED: HYDROCODONE-APA1 TAB PO (08:06)
[2017-06-08 08:11] VITALS: BP 103/49
--- NOTE | 2017-06-08 10:32 | NUR ---
Patient discharging home today with family to drive her. Patient is set up with OP PT at [facility] and her first appointment will be Monday at 10:00 am. CPM will be delivered to her home form [facility]. Patient has walker in room and denies any other needs at this time. CM will continue to follow and assist as needed.
--- NOTE | 2017-06-09 09:25 | NUR ---
Patient called and stated that the [employer] company dropped the machine off but didn't set it up. called [employer] for degree orders. order faxed to [facility] and called and they will set it up
--- NOTE | 2017-06-09 10:54 | OP ---
PATIENT NAME: EDITH BETANCUR MEDICAL RECORD: [id number] :65 LOCATION:D.MS [id number] ADMISSION DATE:06/05/17 SURGEON: SONG MATHIS MD DATE OF OPERATION: 06/05/2017 PREOPERATIVE DIAGNOSIS: Degenerative arthritis of the left knee with prior history of avascular necrosis. POSTOPERATIVE DIAGNOSIS: Degenerative arthritis of the left knee with prior history of avascular necrosis. PROCEDURE: Left total knee arthroplasty. SURGEON: Song Mathis MD ANESTHESIA: General. INTRAOPERATIVE COMPLICATIONS: None. SUMMARY OF PATHOLOGIC FINDINGS: The patient had a grade III and IV chondromalacia of the medial femoral condyle, also a small area of osteonecrosis in the medial aspect of the nonweightbearing surface of the trochlea. IMPLANTS USED: Sabina triathlon total knee arthroplasty, size 4 tibial component, size 4 femoral component, size 9 polyethylene insert, and a size 31 x 9 symmetric patella. OPERATIVE SUMMARY IN DETAIL: After obtaining the appropriate preoperative orthopedic surgery consent as well as anesthetic consultation, evaluation and clearance, the patient was brought to the operating room and placed on the operating table in supine position. After adequate general laryngeal mask airway was administered, the left lower extremity was prepped and draped in routine sterile fashion. Leg was prepared with a tourniquet about the proximal aspect. Left lower extremity was then prepped and draped in a routine sterile fashion. Leg was elevated, exsanguinated and tourniquet was inflated to 350 mmHg. Midline incision was taken down for a paramedian arthrotomy. The patella was then everted and the soft tissue excision was done in the usual fashion. Intramedullary guide hole was created for intramedullary-guided cutting of the distal femur. This was followed by complete exposure of the proximal tibia. Soft tissue excision was followed by intramedullary guided proximal tibial cut. Measurements were taken. Chamfer cuts were made on the distal femur. Final distal femoral and proximal tibial cuts were made. Trials were put in corresponding to the above and then was taken through range of motion and found to be excellent and stable in all planes. The arthritic articular surface of the patella was excised. Final patellar preparations were made. Components were then all inserted, press fit with good fit and fill. The knee was taken through range of motion and found to be stable in all planes. Wound was copiously irrigated at this multiple points. Paramedian arthrotomy was closed with #2 Ethibond. This was followed by #1 Vicryl, 2-0 Vicryl and skin myriam. Sterile dressings were applied. The patient was awakened and taken to the recovery room in stable condition. All final needle and sponge counts were correct. TRANSINT:[id number] Voice Confirmation ID: [id number] DOCUMENT ID: [id number] OPERATIVE REPORT [id number] EDITH BETANCUR MD, SONG ALMANZA at 1054 CC: [id number] DICTATION DATE: 06/05/17904 STEEL ERECTING PUSHER: 06/05/17 0944 [facility] 06/08/17 [place] [id number] [place] [address]
== END 2017-06-08 12:05 | disposition home or self-care (01) | DRG 470 ==
LOC: D.SDCHOLD 10:00 → D.MS 06-05 06:03 → D.SDCHOLD 06-05 07:30 → D.MS 06-05 09:39 → D.SDCHOLD 06-05 10:00 → D.MS 06-08 12:05
PROVIDERS: ADMIT Orthopaedic Surgery
PROC: 0SRD0JA Replacement of Left Knee Joint with Synthetic Substitute, Uncemented, Open Approach (ICD-10-PCS; principal; 2017-06-05 07:30)
DX: M17.12 Unilateral primary osteoarthritis, left knee (principal); M94.262 Chondromalacia, left knee; E11.40 Type 2 diabetes mellitus with diabetic neuropathy, unspecified; Z79.4 Long term (current) use of insulin; I10 Essential (primary) hypertension; I25.10 Atherosclerotic heart disease of native coronary artery without angina pectoris; Z95.5 Presence of coronary angioplasty implant and graft; I73.9 Peripheral vascular disease, unspecified; F17.200 Nicotine dependence, unspecified, uncomplicated; E78.5 Hyperlipidemia, unspecified; E03.9 Hypothyroidism, unspecified; Z86.73 Personal history of transient ischemic attack (TIA), and cerebral infarction without residual deficits

== ENCOUNTER → 2017-08-15 08:19 | Outpatient (CLI) | payer BC ==
[2017-06-06 12:28] VITALS: BMI 30.5
[~2017-08-15 08:19] MED LIST changes: +ELIQUIS2.5 MG PO
[2017-08-15 09:20] LABS: ALBUMIN 4.2 g/dL (3.4-5.0); BILIRUBIN - DIRECT 0.16 mg/dL (0.00-0.30); BILIRUBIN - INDIRECT 0.24 mg/dL (0.00-1.00); BILIRUBIN - TOTAL 0.4 mg/dL (0.2-1.3); PROTEIN - SERUM 8.9 g/dL (6.4-8.2)
== END | disposition home or self-care (01) ==
LOC: D.US 08-07 09:30
PROVIDERS: Internal Medicine Gastroenterology
DX: K76.0 Fatty (change of) liver, not elsewhere classified (principal)

== ENCOUNTER 2017-12-29 06:43 | Day surgery (SDC) | payer BC ==
[2017-12-28 10:11] LABS: HEMATOCRIT 43.2 % (36.0-48.0); HEMOGLOBIN 15.1 g/dL (12-16); MCH 31.4 pg (26.0-34.0); MCV 89.8 fL (80.0-100.0); MEAN PLATELET VOLUME 10.4 fL (7.4-10.4); RBC 4.81 10x6/uL (4.00-5.40); RDW 14.9 % (11.5-14.5); WBC 11.9 10x3/uL (4.8-10.8)
[2017-12-28 10:38] LABS: ANION GAP 13.5 mmol/L (8-16); CALCIUM 9.8 mg/dL (8.5-10.1); CARBON DIOXIDE 27.6 mmol/L (21.0-32.0); CREATININE - SERUM 1.2 mg/dL (0.6-1.3); POTASSIUM - SERUM 4.1 mmol/L (3.5-5.1)
[~2017-12-29] VITALS: Ht 170.2 cm; Wt 78.9 kg
--- NOTE | ~2017-12-29 | OP ---
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 PROCEDURE: Removal of painful suture. SURGEON: Song Mathis MD ANESTHESIA: General. INTRAOPERATIVE COMPLICATIONS: None. SUMMARY OF PATHOLOGIC FINDINGS: The patient had a suture that had been draining for several months. While it had quit at one point it started again. The decision was made to proceed with operative removal of the suture as her total knee is doing beautifully. OPERATIVE SUMMARY IN DETAIL: After obtaining the appropriate preoperative orthopedic surgery consent as well as anesthetic consultation, evaluation and clearance, the patient was brought to the operating place and placed on the operating table in supine position. After general laryngeal mask airway was administered, tourniquet was placed on the proximal aspect of the right lower extremity. Right lower extremity was then prepped and draped in routine sterile fashion. The leg was elevated and exsanguinated. Tourniquet was inflated to 350 mmHg. An incision was made at the area of the suture, very gently taken down in a subcuticular fashion. The entire suture was found, isolated, and removed in its entirety. The wound was then copiously irrigated and closed with 4-0 Prolene with a combination of both simple and vertical mattress sutures. Sterile dressings were applied. Tourniquet was deflated. The patient was awakened and taken to recovery room in stable condition. All final needle and sponge counts were correct. TRANSINT:[id number] Voice Confirmation ID: [id number] DOCUMENT ID: [id number] SONG MATHIS MD at 1158 CC: [id number] DICTATION DATE: 12/29/17920 THERMOSTATIC CONTROLS SUPERVISOR: 12/29/17 1125 [facility] 12/29/[address] [address]
[~2017-12-29 06:43] MED LIST changes: +CYCLOBENZAPRINE5 MG PO; +PERCOCET 7.5/321 TAB PO
[2017-12-29 07:21] VITALS: BP 147/83; Ht 170.2 cm; Wt 78.9 kg
[2017-12-29] MEDS ORDERED: NORCO 7.5/325 T1 TA1 PO (07:37)
[2017-12-29] MEDS ORDERED: HYDROCODONE-APA1 TAB PO (09:18)
== END 2017-12-29 11:15 | disposition home or self-care (01) ==
LOC: D.OPS 06:43 → D.PAN 08:20 → D.OPS 08:30 → D.PAN 08:30 → D.OPS 11:15
PROVIDERS: Anesthesiology
DX: T81.89XD Other complications of procedures, not elsewhere classified, subsequent encounter (principal); Z96.652 Presence of left artificial knee joint; M25.562 Pain in left knee; F17.200 Nicotine dependence, unspecified, uncomplicated; E03.9 Hypothyroidism, unspecified; E11.9 Type 2 diabetes mellitus without complications; I10 Essential (primary) hypertension; Z01.812 Encounter for preprocedural laboratory examination

== ENCOUNTER → 2018-02-26 18:16 | Outpatient (CLI) | payer BC ==
[2017-12-29 07:21] VITALS: BMI 27.3
[~2018-02-26 18:16] MED LIST changes: +NORCO 7.5/325 T1 TA1 PO
[2018-02-26 18:52] LABS: ALT (SGPT) 74 U/L (10-68); CHOL - HDL RATIO 14.6 ratio (2.3-4.1); CHOLESTEROL, TOTAL 451 mg/dL (0-200); CREATINE KINASE 116 UL (21-215); HDL CHOLESTEROL 31 mg/dL (32-96)
[2018-02-26 18:53] LABS: TRIGLYCERIDE 565 mg/dL (30-200)
== END | disposition home or self-care (01) ==
LOC: D.LABREF 18:16
PROVIDERS: Internal Medicine Cardiovascular Disease
DX: E78.5 Hyperlipidemia, unspecified (principal)

== ENCOUNTER → 2018-04-10 16:59 | Outpatient (CLI) | payer BC ==
[2017-12-29 07:21] VITALS: BMI 27.3
[2018-04-10 18:02] LABS: CHOL - HDL RATIO 18.8 ratio (2.3-4.1); CHOLESTEROL, TOTAL 357 mg/dL (0-200); HDL CHOLESTEROL 19 mg/dL (32-96)
[2018-04-10 18:03] LABS: ALT (SGPT) 102 U/L (10-68); TRIGLYCERIDE 1294 mg/dL (30-200)
== END | disposition home or self-care (01) ==
LOC: D.LABREF 16:59
PROVIDERS: Nurse Practitioner
DX: E78.5 Hyperlipidemia, unspecified (principal)

== ENCOUNTER → 2018-04-18 16:56 | Outpatient (CLI) | payer BC ==
[2017-12-29 07:21] VITALS: BMI 27.3
[2018-04-18 18:20] LABS: ALT (SGPT) 104 U/L (10-68); CHOL - HDL RATIO 13.6 ratio (2.3-4.1); CHOLESTEROL, TOTAL 393 mg/dL (0-200); HDL CHOLESTEROL 29 mg/dL (32-96)
[2018-04-18 18:21] LABS: TRIGLYCERIDE 759 mg/dL (30-200)
[2018-04-18 18:42] LABS: LDL-HDL RATIO 13.5 ratio (1.5-3.5)
== END | disposition home or self-care (01) ==
LOC: D.LABREF 16:56
PROVIDERS: Nurse Practitioner
DX: E78.5 Hyperlipidemia, unspecified (principal)

== ENCOUNTER → 2019-03-07 10:54 | Outpatient (CLI) | payer OTHER ==
[2017-12-29 07:21] VITALS: BMI 27.3
[~2019-03-07 10:54] MED LIST changes: +ALPHAGAN 0.2%5 ML EACH EYE; +BAYER CHEWABLE81 MG PO; +CATAPRES0.1 MG PO; +DURAGESIC1 PATCH .7 TRANSDERM; +FLUTICASONE PRO16 GM NASAL; +FOLIC ACID1 MG PO; +GLUCOPHAGE1000 MG PO; +HUMALOG 30100 UNITS/ SC; +LASIX40 MG PO; +LYRICA75 MG PO; -NOVOLOG100 U/M1 SQ; +SYMBICORT 16010.2 GM INH; +SYNTHROID200 MC1 PO; +TRADJENTA5 MG PO; +ZANAFLEX4 MG PO
== END | disposition home or self-care (01) ==
LOC: D.US 10:54
PROVIDERS: ATTEND Family Medicine
DX: R60.0 Localized edema (principal)

== ENCOUNTER 2019-04-04 15:38 | Inpatient (IN) | payer OTHER, MEDICARE ==
[~2019-04-04] VITALS: Ht 170.2 cm; Wt 88.9 kg
[~2019-04-04 15:38] MED LIST changes: -ALPHAGAN 0.2%5 ML EACH EYE; -BAYER CHEWABLE81 MG PO; -CATAPRES0.1 MG PO; -DURAGESIC1 PATCH .7 TRANSDERM; -FLUTICASONE PRO16 GM NASAL; -FOLIC ACID1 MG PO; -GLUCOPHAGE1000 MG PO; -LASIX40 MG PO; -LYRICA75 MG PO; -SYMBICORT 16010.2 GM INH; -SYNTHROID200 MC1 PO; -TRADJENTA5 MG PO; -ZANAFLEX4 MG PO
--- NOTE | 2019-04-04 16:00 | NUR ---
PT RECIEVED DIRECT ADMIT TO ROOM 2218. ALERT AND ORIENTED. NO ACUTE DISTRESS NOTED. BILAT LOWER EXTREMITIES REDENNED AND WARM TO TOUCH, SWELLING NOTED. PT ORIENTED TO ROOM, BED CONTROLS AND CALL LIGHT. DENIES QUESTIONS AT THIS TIME. CL WITHIN REACH. ENCOURAGED TO CALL WITH NEEDS.
[2019-04-04 16:04] VITALS: BP 174/73; BMI 30.7
[2019-04-04 16:14] LABS: BASOPHILS 1.4 % (0-2); EOSINOPHILS 4.7 % (0-7); HEMATOCRIT 39.8 % (36.0-48.0); HEMOGLOBIN 14.5 g/dL (12-16); IMMATURE GRANULOCYTES 0.4 % (0-5); LYMPHOCYTES 33.8 % (15-50); MCH 32.8 pg (26.0-34.0); MCHC 36.4 g/dL (31.0-37.0); MEAN PLATELET VOLUME 11.4 fL (7.4-10.4); MONOCYTES 4.9 % (2-11); NEUTROPHILS 54.8 % (40-80); PLATELET COUNT 190 10x3/uL (130-400); RBC 4.42 10x6/uL (4.00-5.40); RDW 14.1 % (11.5-14.5); WBC 12.1 10x3/uL (4.8-10.8)
[2019-04-04 16:34] LABS: ALBUMIN 3.2 g/dL (3.4-5.0); ANION GAP 13.6 mmol/L (8-16); BILIRUBIN - TOTAL 0.34 mg/dL (0.2-1.3); CALCIUM 8.3 mg/dL (8.5-10.1); CREATININE - SERUM 1.3 mg/dL (0.6-1.3); POTASSIUM - SERUM 3.6 mmol/L (3.5-5.1); PROTEIN - SERUM 7.7 g/dL (6.4-8.2)
[2019-04-04 17:23] LABS: APPEARANCE CLEAR (CLEAR); COLOR YELLOW (YELLOW); NITRITE NEGATIVE (NEGATIVE); PROTEIN 1+ mg/dL (NEGATIVE); SPECIFIC GRAVITY 1.015 (1.005-1.020)
[2019-04-04 17:24] LABS: BILIRUBIN NEGATIVE (NEGATIVE); GLUCOSE 1000 mg/dL (NEGATIVE); KETONE NEGATIVE (NEGATIVE); UROBILINOGEN NORMAL (NORMAL)
[2019-04-04 17:25] LABS: BACTERIA FEW /hpf (NONE SEEN); EPITHELIAL CELLS 0-5 /hpf (0-5); RED CELLS - URINE OCC /hpf (0-5); YEAST <1+ /hpf (NONE SEEN)
[2019-04-04 17:49] VITALS: BP 174/73
[2019-04-04 20:00] VITALS: BP 168/89
--- NOTE | 2019-04-04 20:00 | NUR ---
SUPINE IN BED, A&O X 4. FAMILY MEMBER AT BEDSIDE. SCDs IN USE. PT REPORTS PAIN TO BILAT LOWER EXTREMETIES. LOWER LEGS WARM TO TOUCH, REDNESS AND EDEMA NOTED. ALL PERIPHERAL PULSES PALPABLE. PT REPORTS THEY ARE TENDER TO TOUCH. ALSO ADMITS TO CHRONIC BACK PAIN. PAIN IS 9/10. REFUSES FURTHER USE OF SCDs. FSBS 294, DR. ELAINE AT . INFORMED PT ABOUT DIABETIC DIET, PT VERBALIZED UNDERSTANDING. WILL CONTINUE TO MONITOR.
[2019-04-05] VITALS: BP 132/62
--- NOTE | 2019-04-05 03:27 | NUR ---
I have reviewed this patient and I concur with the Shift Assessment completed by the Licensed Practical Nurse today this shift.
[2019-04-05 04:00] VITALS: BP 114/54; BP 114/55
--- NOTE | 2019-04-05 07:15 | NUR ---
PT RESTING QUIETLY IN BED. NO ACUTE DISTRESS NOTED. REPORTS PAIN 4/10 AT THIS TIME REPORTING PAIN MED GIVEN AT 0630. IV TO LEFT FOREARM WITH NS @ 75ML/HR INFUSING VIA PUMP. SITE WITHOUT REDNESS OR EDEMA. DENIES FURTHER NEEDS AT THIS TIME. CL WITHIN REACH. ENCOURAGED TO CALL WITH NEEDS. CONTINUE POC
[2019-04-05 07:23] LABS: BASOPHILS 0.8 % (0-2); EOSINOPHILS 4.5 % (0-7); HEMATOCRIT 37.6 % (36.0-48.0); HEMOGLOBIN 13.1 g/dL (12-16); IMMATURE GRANULOCYTES 0.3 % (0-5); LYMPHOCYTES 38.6 % (15-50); MCH 31.9 pg (26.0-34.0); MCHC 34.8 g/dL (31.0-37.0); MCV 91.5 fL (80.0-100.0); MEAN PLATELET VOLUME 12.1 fL (7.4-10.4); MONOCYTES 5.8 % (2-11); PLATELET COUNT 208 10x3/uL (130-400); RBC 4.11 10x6/uL (4.00-5.40); RDW 14.3 % (11.5-14.5); WBC 12.7 10x3/uL (4.8-10.8)
[2019-04-05 07:55] LABS: ALBUMIN 2.6 g/dL (3.4-5.0); ANION GAP 10.2 mmol/L (8-16); BILIRUBIN - TOTAL 0.32 mg/dL (0.2-1.3); CALCIUM 7.9 mg/dL (8.5-10.1); CARBON DIOXIDE 28.1 mmol/L (21.0-32.0); MAGNESIUM - SERUM 1.5 mg/dL (1.8-2.4); PHOSPHOROUS 3.8 mg/dL (2.5-4.9); POTASSIUM - SERUM 3.3 mmol/L (3.5-5.1)
[2019-04-05 07:56] LABS: THYROID STIMULATING HORMONE 71.53 uIU/mL (0.36-3.74)
[2019-04-05 07:58] LABS: APPEARANCE CLEAR (CLEAR); BACTERIA FEW /hpf (NONE SEEN); BILIRUBIN NEGATIVE (NEGATIVE); COLOR YELLOW (YELLOW); EPITHELIAL CELLS 0-5 /hpf (0-5); GLUCOSE 50 mg/dL (NEGATIVE); KETONE NEGATIVE (NEGATIVE); MUCUS <1+ /lpf (NONE SEEN); NITRITE NEGATIVE (NEGATIVE); PROTEIN 1+ mg/dL (NEGATIVE); UROBILINOGEN NORMAL (NORMAL); WHITE CELLS - URINE 0-5 /hpf (0-5)
[2019-04-05 08:09] VITALS: BP 111/53
[2019-04-05 13:43] VITALS: Ht 170.2 cm; Wt 88.9 kg
--- NOTE | 2019-04-05 15:37 | NUR ---
BLE WITH EDEMA AND REDNESS. NO WEEPING NOTED. PT IS ON VANC. ENCOURAGED TO KEEP LE ELEVATED.
--- NOTE | 2019-04-05 19:00 | NUR ---
BEDSIDE REPORT RECEIVED AND CARE OF PT ASSUMED. PT LYING ON LEFT SIDE WITH EYES CLOSED. IV TO LEFT FA PATENT WITH NS INFUSING AT 75 ML/HR. TELEMETRY IN PLACE AND READING 61 SR AT THIS ASSESSMENT. WILL MONITOR FOR NEEDS.
--- NOTE | 2019-04-05 19:40 | NUR ---
GAVE MORPHINE 2 MG IVP PER REQUEST FOR PAIN IN BLE. WILL MONITOR FOR EFFECTIVENESS.
[2019-04-05 20:00] VITALS: BP 138/66
--- NOTE | 2019-04-05 21:11 | NUR ---
HS MEDICATIONS GIVEN. FSBS 232 THIS CHECK REQUIRING COVERAGE WITH 8 UNITS OF INSULIN PER SLIDING SCALE. GAVE ORANGE JUSTINE FOR HS SNACK.
--- NOTE | 2019-04-05 22:42 | NUR ---
PT C/O IV SITE ITCHING...FLUSHES WELL. SLOWED DOWN RATE OF VANC TO 75 ML/HR TO SEE IF IT FEELS BETTER FOR PT.
[2019-04-06] VITALS: BP 146/68
[2019-04-06 04:00] VITALS: BP 138/61
[2019-04-06 05:16] LABS: BASOPHILS 1.1 % (0-2); HEMATOCRIT 36.5 % (36.0-48.0); HEMOGLOBIN 12.4 g/dL (12-16); IMMATURE GRANULOCYTES 0.2 % (0-5); LYMPHOCYTES 40.5 % (15-50); MCH 31.6 pg (26.0-34.0); MCV 93.1 fL (80.0-100.0); MEAN PLATELET VOLUME 11.2 fL (7.4-10.4); NEUTROPHILS 46.2 % (40-80); PLATELET COUNT 185 10x3/uL (130-400); RBC 3.92 10x6/uL (4.00-5.40); RDW 14.6 % (11.5-14.5)
[2019-04-06 05:26] LABS: ANION GAP 11.1 mmol/L (8-16); CALCIUM 7.8 mg/dL (8.5-10.1); CARBON DIOXIDE 28.9 mmol/L (21.0-32.0); CREATININE - SERUM 1.1 mg/dL (0.6-1.3); MAGNESIUM - SERUM 1.6 mg/dL (1.8-2.4); PHOSPHOROUS 2.8 mg/dL (2.5-4.9)
[2019-04-06 08:47] VITALS: BP 120/63
--- NOTE | 2019-04-06 11:10 | NUR ---
PT RESTING IN BED. NO SIGNS OF DISTRESS. IV TO LEFT FORARM PATENT NO REDNESS OR TENDERNESS. ON TELEMETRY 53 SINUS. REDDNESS TO BOTH LEGS. COMPLAINS OF PAIN. MEDICATIONS GIVEN. DENIES ANY FURTHER NEED AT THIS TIME. CALL LIGHT IN REACH. BED LOW POSITION. NO FAMILY AT BEDSIDE AT THIS TIME.
[2019-04-06 12:45] VITALS: BP 138/63
[2019-04-06] MEDS ORDERED: PLAVIX75 MG PO (15:42)
--- NOTE | 2019-04-06 17:08 | NUR ---
DISCHARGE INSTRUCTIONS GIVEN. SEEMS TO UNDERSTAND INSTRUCTIONS. IV OUT TIP INTACT. TELEMETRY OFF AND RETURNED. NO SIGNS OF DISTRESS. LEFT WITH HOSPITAL STAFF TO GO HOME IN PERSONAL RIDE WITH FAMILY.
== END 2019-04-06 17:09 | disposition home or self-care (01) | DRG 638 ==
LOC: D.MS 15:38
PROVIDERS: Family Medicine; ADMIT Internal Medicine Nephrology; ATTEND Internal Medicine Nephrology
DX: E11.628 Type 2 diabetes mellitus with other skin complications (principal); L03.116 Cellulitis of left lower limb; L03.115 Cellulitis of right lower limb; E11.51 Type 2 diabetes mellitus with diabetic peripheral angiopathy without gangrene; I10 Essential (primary) hypertension; E78.5 Hyperlipidemia, unspecified; J43.9 Emphysema, unspecified; E03.9 Hypothyroidism, unspecified; F32.9 Major depressive disorder, single episode, unspecified; M54.9 Dorsalgia, unspecified; E11.40 Type 2 diabetes mellitus with diabetic neuropathy, unspecified

== ENCOUNTER 2019-04-10 10:00 | Outpatient (CLI) | payer OTHER ==
[2019-04-05 13:43] VITALS: BMI 30.7
== END 2019-04-10 10:30 | disposition home or self-care (01) ==
LOC: D.MAMMO 10:00
PROVIDERS: ATTEND Family Medicine
DX: Z12.31 Encounter for screening mammogram for malignant neoplasm of breast (principal)

== ENCOUNTER 2019-04-15 07:47 | Outpatient (CLI) | payer OTHER ==
[~2019-04-15] VITALS: Ht 170.2 cm; Wt 83.6 kg
--- NOTE | ~2019-04-15 | HEMODYNAMI ---
PATIENT:EDITH BETANCUR MEDICAL RECORD: [id number] : 65 LOCATION:[facility] ADMISSION DATE: 04/15/19 Generatedon:04/15/201911:08 Patient name: EDITH BETANCUR Patient #: [id number] SSN: [id number] : 1965 Date of study: 04/15/2019 Page: Of Hemodynamic Procedure Report Patient Data Patient Demographics Procedure consent was obtained First Name: DECEMBER Gender: Female Last Name: GYPSY : 1965 Middle Initial: E Age: 53 year(s) Patient #: [id number] Race: SSN: [id number] Additional ID: [id number] Contact details Address: [address] [place] [address] State: [place] City: [facility] Zip code: [address] Past Medical History Allergies Allergen Reaction Date Comments Reported Other allergy 11/23/2014 Sulfa, Codeine, Latex, Benzonatate Other allergy 04/15/2019 SULFA, GENZONATE Admission Admission Data Admission Date: 04/15/2019 Admission Time: 7:47 Arrival Date: 04/15/2019 Arrival Time: 0:00 Weight (lbs.): 185.19 Weight (kg.): 84 Lab Results Lab Result Date: 04/15/2019 Lab Result Time: 0:00 Biochemistry Name Units Result Min Max BUN mg/dl 11 --(-*--)-- 7 18 Creatinine mg/dl 1.1 --(--*-)-- 0.6 1.3 eGFR ml/min 55 *-(----)-- 90 120 NONAFRICAN CBC Name Units Result Min Max Hematocrit % 38.7 *-(----)-- 42 54 Hemoglobin g/dl 13.8 --(*---)-- 13.5 17.5 Procedure Procedure Types Cath Procedure Peripheral Cath Diagnostic Procedure Tilting Head Band Sawyer Peripheral Procedures AFRO (Diagnostic) Peripheral vascular Intervention Stent Stent-Fem/Popw/plasty Procedure Description Procedure Date Procedure Date: 04/15/2019 Procedure Start Time: 10:39 Procedure End Time: 11:02 Procedure Staff Name Function Mariya Jimenez RN Nurse Son Hernandez MD Performing Physician Mariangel Molina RT Monitor Gin Ribera RT Scrub Procedure Data Cath Procedure Fluoroscopy Diagnostic fluoroscopy Total fluoroscopy Time: 4 time: 4 min min Diagnostic fluoroscopy Total fluoroscopy dose: 187 dose: 187 mGy mGy Contrast Material Contrast Material Type Amount (ml) Isovue 300 117 Entry Location Entry Primary Successful Side Size Upsize Upsize Entry Closure Succes sful Closure Location (Fr) 1 (Fr) 2 (Fr) Remarks Device Remarks Femoral Right 5 Fr 6 Fr Exoseal artery Long Estimated blood loss: 10 ml Diagnostic catheters Device Type Used For End Catheter Placement DIAGNOSTIC UF 5Fr Procedure catheter ([id number]) Procedure Complications No complications Procedure Medications Medication Administration Route Dosage Oxygen etCO2 Nasal cannula 2 l/min Lidocaine 2% added to field 20 Heparin Flush Bag added to field 2 bags (1000units/500ml NS) 0.9% NaCl I.V. 100 ml/hr Heparin Bolus I.V. 4000 units Versed I.V. 2 mg Fentanyl I.V. 100 mcg Versed I.V. 2 mg Fentanyl I.V. 100 mcg Versed I.V. 1 mg Fentanyl I.V. 50 mcg Hemodynamics Rest HGB: 13.8 (g/dl) Heart Rate: 73 (bpm) Snapshots Pre Cath Intra NCS Post Cath Vital Signs Time Heart Resp SPO2 etCO2 NIBP (mmHg) Rhythm Pain Sedation Rate (ipm) (%) (mmHg) Status Level (bpm) 10:30:10 73 19 96 44.3 169/83(136) NSR 0 (11) 10(A) , No pain 10:34:34 73 16 97 39.8 147/79(112) NSR 0 (11) 10(A) , No pain 10:38:54 73 14 95 39 137/76(106) NSR 0 (11) 10(A) , No pain 10:43:54 74 11 96 44.3 Measuring NSR 0 (11) 10(A) , No pain 10:44:06 76 13 96 42.8 157/75(124) NSR 0 (11) 10(A) , No pain 10:48:24 79 14 95 44.3 148/86(115) NSR 0 (11) 10(A) , No pain 10:52:42 79 14 94 44.3 139/79(100) NSR 0 (11) 10(A) , No pain 10:57:00 81 15 96 44.3 153/76(103) NSR 0 (11) 10(A) , No pain 11:01:24 82 29 96 46.5 160/84(118) NSR 0 (11) 10(A) , No pain Medications Time Medication Route Dose Verified Delivered Reason Notes Effectiveness by by 10:29:03 Oxygen etCO2 2 Son Buffie used for Nasal l/min Mary Jimenez RN procedure cannula 10:29:09 Lidocaine 2% added 20ml Son Son for local to vial Mary Hernandez MD anesthetic field 10:29:14 Heparin Flush added 2 Son Son used for Bag to bags Mary Hernandez MD procedure (1000units/500ml field NS) 10:29:23 0.9% NaCl I.V. 100 Son Buffie Per physician ml/hr Mary Jimenez RN 10:39:53 Versed I.V. 2 mg Son Buffie for sedation Mary Jimenez RN 10:39:58 Fentanyl I.V. 100 Son Buffie for sedation mcg Mary Jimenez RN 10:43:41 Heparin Bolus I.V. 4000 Son Buffie for verif ied units Mary Jimenez RN anticoagulation with dr hernandez 10:46:30 Versed I.V. 2 mg Son Buffie for sedation Mary Jimenez RN 10:46:36 Fentanyl I.V. 100 Son Buffie for sedation mcg Mary Jimenez RN 10:51:08 Versed I.V. 1 mg Son Buffie for sedation Mary Jimenez RN 10:51:13 Fentanyl I.V. 50 Son Buffie for sedation mcg Mary Jimenez RN Procedure Log Time Note 10:15:44 Time tracking: Regular hours (M-F 7:00 - 5:00) 10:15:44 Procedure Status Elective Heart Cath (OP). 10:15:47 Plan of Care:Hemodynamics will remain stable., Cardiac rhythm will remain stable., Comfort level will be maintained., Respiratory function will remain adequate., Patient/ family verbilizes understanding of procedure., Procedure tolerated without complication., Recovers from procedure without complications.. 10:15:48 Mariya Jimenez RN sent for patient. Start room use. 10:15:49 Signed procedure consent form obtained from patient. 10:17:07 Patient Weight : 185.19 lbs 10:19:33 Patient received from Pre/Post Procedure Room to CCL 1 Alert and oriented. Tansferred to table in Supine position. 10:19:34 Correct patient and procedure confirmed by team. 10:19:34 Warm blankets applied, and sonny hugger turned on for patient comfort. 10:19:35 ECG and BP/O2 sat monitors applied to patient. 10:28:51 Vital chart was started 10:29:03 Oxygen 2 l/min etCO2 Nasal cannula was administered by Mariya Jimenez RN; used for procedure; 10:29:09 Lidocaine 2% 20ml vial added to field was administered by Son Hernandez MD; for local anesthetic; 10:29:14 Heparin Flush Bag (1000units/500ml NS) 2 bags added to field was administered by Son Hernandez MD; used for procedure; 10:29:23 0.9% NaCl 100 ml/hr I.V. was administered by Mariya Jimenez RN; Per physician; 10:30:00 Baseline sample Acquired. 10:30:02 Rhythm: sinus rhythm 10:30:04 Full Disclosure recording started 10:30:14 H&P Date Dictated: 04/09/2019 Within 30 days and on chart., H&P Addendum completed by physician on day of procedure. (MUST COMPLETE FOR ALL OUTPATIENTS). 10:30:16 Pre-op teaching completed and patient verbalized understanding. 10:30:16 Pre-procedure instructions explained to patient. 10:30:17 Family in patients room. 10:30:18 Patient NPO since Midnight. 10:30:39 Patient allergic to Other allergySULFA, GENZONATE 10:30:43 Is patient on blood thinner?Yes 10:30:45 ACC The patient was administered the following blood thiners within the last 24 hours: ACCPlavix 10:30:47 If diabetic: On Metformin? Yes 10:30:47 Patient diabetic? Yes. 10:30:50 If on Metformin: Last Dose? 04/13/2019 10:30:54 Previous problem with sedation/anesthesia? No ? 10:30:55 Snore? Yes 10:30:56 Sleep apnea? Yes 10:30:57 Deviated septum? No 10:30:58 Opens mouth fully? Yes 10:30:59 Sticks out tongue? Yes 10:31:03 Airway obstruction? No ? 10:31:07 Dentures? No OUT 10:31:11 Pre procedure: right dorsailis pedis pulse 1+ Palpable, but thready & weak; easily obliterated 10:31:15 Pre procedure: left dorsailis pedis pulse Doppler 10:31:18 Patient pain scale 0/10 ?. 10:31:26 IV patent on arrival in left forearm with 0.9% NaCl at [facility]. 10:32:01 Lab Result : Hemoglobin 13.8 g/dl 10:32:01 Lab Result : Hematocrit 38.7 % 10:32:01 Lab Result : eGFR NONAFRICAN 55 ml/min 10:32:01 Lab Result : BUN 11 mg/dl 10:32:01 Lab Result : Creatinine 1.1 mg/dl 10:32:04 Lab results completed and on chart. 10:32:08 Bilateral groins area was prepped with chlora-prep and draped in sterile fashion 10:32:09 Sharps counted by scrub and verified by R.N. 10:32:09 Alarms reviewed by R. N. 10:32:16 Use device set CATH PACK 10:32:17 ACIST Syringe (58618) opened to sterile field. 10:32:18 Medline Cath Pack ([id number]) opened to sterile field. 10:32:18 ACIST Manifold (48418) opened to sterile field. 10:32:18 ACIST Hand Control (37969) opened to sterile field. 10:32:19 EMERALD Guide Wire (502-784) opened to sterile field. 10:32:19 Bag Decanter (2002S) opened to sterile field. 10:32:25 SHEATH 5FR [place] (XGS178) opened to sterile field. 10:34:25 Arrival Date: 04/15/2019 12:00:00 AM 10:38:19 --------ALL STOP TIME OUT------ 10:38:20 Final Timeout: patient, procedure, and site verified with staff and physician. All members of the team are in agreement. 10:38:21 Bilateral groins site verified by team. 10:38:24 Fire Safety Assessment: A--An alcohol-based skin anteseptic being used preoperatively., C--Open oxygen or nitrous oxide is being used., D--An ESU, laser, or fiber-optic light is being used. 10:38:26 Physical assessment completed. ASA score P 2 - A patient with mild systemic disease as per Son Hernandez MD. 10:38:39 3a) 45-59 Moderately reduced kidney function. 10:38:42 Maximum allowable contrast dose (3.7 X eGFR X 0.75)153 ml. 10:38:46 Sedation plan: IV Moderate Sedation Medication:Versed, Fentanyl 10:38:49 Procedure started. 10:39:23 Local anesthetic to right femoral artery with Lidocaine 2% by Son Hernandez MD.INITIAL ACCESS ONLY 10:39:34 A 5 Fr sheath was inserted into the Right Femoral artery 10:39:45 A DIAGNOSTIC UF 5Fr catheter ([id number]) was advanced over the wire and used for Procedure. 10:39:53 Versed 2 mg I.V. was administered by Mariya Jimenez RN; for sedation; 10:39:58 Fentanyl 100 mcg I.V. was administered by Mariya Jimenez RN; for sedation; 10:41:01 Abdominal angiogram w/ runoff was performed. 10:41:11 Left leg runoff performed. 10:41:41 Right leg runoff performed. 10:41:48 Catheter removed. 10:42:07 GLIDE WIRE ANGLE 260cm (PQ3007) opened to sterile field. 10:42:07 INFLATOR Merit BasixCompak (VI5421) opened to sterile field. 10:42:07 SHEATH 6FR [place] (KCZ393) opened to sterile field. 10:42:12 SHEATH 6FR Destination (RSR01) opened to sterile field. 10:42:58 LONG GLIDE WIRE USED TO ADVANCED WITH UF CATHETER AROUND THE HORN 10:43:08 UF EXCHANGED OVER WIRE 10:43:13 Sheath upsized to a 6 Fr Long. 10:43:41 Heparin Bolus 4000 units I.V. was administered by Mariya Jimenez RN; for anticoagulation; verified with dr hernandez 10:43:56 CHOICE PT Extra Support J 300cm guide wire ([id number]) opened to sterile field. 10:45:55 CHOICE ES 300 wire advanced. 10:45:56 Wire advanced across lesion. 10:46:30 Versed 2 mg I.V. was administered by Mariya Jimenez RN; for sedation; 10:46:36 Fentanyl 100 mcg I.V. was administered by Mariya Jimenez RN; for sedation; 10:46:43 Inflate balloon Inflation number: 1 A Mozec Rx 4.0 x 30 balloon was prepped and advanced across the Mid Common Femoral, Left , then inflated to 21 RIYA for 0:00 (min:sec) . 10:46:57 Inflation number: 2 The Mozec Rx 4.0 x 30 balloon was reinflated across the Mid Common Femoral, Left , to 21 RIYA for 0:00 (min:sec) . 10:47:50 Balloon removed over the wire. 10:49:30 SMART 6 x 100 x 120 stent ([id number]) was deployed across Mid Common Femoral, Left . 10:49:35 Stent catheter was removed intact over wire. 10:51:08 Versed 1 mg I.V. was administered by Mariya Jimenez RN; for sedation; 10:51:13 Fentanyl 50 mcg I.V. was administered by Mariya Jimenez RN; for sedation; 10:51:37 Inflate balloon Inflation number: 3 A POWERFLEX PRO 6.0 x 100 x 135cm balloon ([id number]) was prepped and advanced across the Mid Common Femoral, Left , then inflated to 7 RIYA for 0:00 (min:sec) . 10:51:50 Inflation number: 4 The POWERFLEX PRO 6.0 x 100 x 135cm balloon ([id number]) was reinflated across the Mid Common Femoral, Left , to 5 RIYA for 0:00 (min:sec) . 10:52:19 Balloon removed over the wire. 10:54:06 CHOICE 300 WIRE REMOVED 10:54:09 LONG SHEATH EXCHANGED FOR SHORT SHEATH 10:54:30 EXOSEAL 6Fr (EX600) opened to sterile field. 10:55:09 Sheath removed intact; hemostasis achieved with Exoseal to the Right Femoral artery. 10:55:11 Procedure ended.(Physican Out) 10:55:56 ACT drawn and resulted at 291 seconds. (normal therapeutic range 180-240 seconds). 10:56:32 Fluoroscopy time 04.00 minutes. 10:56:36 Fluoroscopy dose: 187 mGy 10:56:36 Flurop Dose total: 187 10:56:43 Dose Area Product 80569 mGy/cm. 10:56:50 Contrast amount:Isovue 300 117ml. 10:56:53 Maximum allowable dose exceeded? No. 10:56:54 Sharps counted by scrub and verified by R.N. 10:56:58 Post-op/insertion site Right Femoral artery dressed using a 4 x 4 and Tegaderm. 10:57:01 Post-procedure physical assessment completed. ASA score P 2 - A patient with mild systemic disease as per Son Hernandez MD. 10:57:11 Post procedure rhythm: sinus rhythm 10:57:13 Estimated blood loss: 10 ml 10:57:14 Patient needs reinforcement of post procedure teaching. 10:57:14 Post procedure instruction explained to patient.Patient verbalizes understanding. 10:57:57 Procedure type changed to Cath procedure, Peripheral Cath Diagnostic Procedure, Tilting Head Band Sawyer Peripheral Procedures, AFRO (Diagnostic), Peripheral vascular Intervention, Stent, Stent-Fem/Popw/plasty 10:59:32 Procedure and supply charges have been captured, reviewed, submitted and are correct. 10:59:38 Procedure Complication : No complications 11:02:16 See physician's report for complete and final results. 11:02:16 Vital chart was stopped 11:02:17 Report given to Pre/Post Procedure Room. 11:02:20 Patient transfered to Pre/Post Procedure Room with Bed. 11:02:21 Full Disclosure recording stopped 11:02:21 Procedure ended. 11:02:26 End room use (Document Last) Intervention Summary Intervention Notes Time ActionType Lesion and Equipment Action# Pressure Duration Attributes Used 10:46:43 Inflate Mid Common Mozec Rx 1 21 00:00 balloon Femoral, 4.0 x 30 Left balloon 10:46:57 Reinflate Mid Common Mozec Rx 2 21 00:00 balloon Femoral, 4.0 x 30 Left balloon 10:49:30 Deploy self Mid Common SMART 6 x 1 expanding Femoral, 100 x 120 stent Left stent ([id number]) 10:51:37 Inflate Mid Common POWERFLEX 3 7 00:00 balloon Femoral, PRO 6.0 x Left 100 x 135cm balloon ([id number]) 10:51:50 Reinflate Mid Common POWERFLEX 4 5 00:00 balloon Femoral, PRO 6.0 x Left 100 x 135cm balloon ([id number]) Device Usage Item Name Manufacture Quantity Catalog Number Hospital Part Current Mini mal Lot# / Charge Number Stock Stock Serial# Code ACIST Acist 1 76075 739985 241401 968392 20 Syringe Medical (20601) Systems Inc ACIST Hand Acist 1 81313 799477 951985 020889 5 Control Medical (03621) Systems Inc ACIST Acist 1 24762 879785 307975 716715 5 Manifold Medical (48245) Systems Inc Medline Medline 1 [id number] 338941 39499 568005 5 Cath Pack ([id number]) Bag Microtek 1 027065 78123 122011 5 Decanter Medical Inc. () EMERALD Cardinal 1 502-455 686767 091927 344096 5 Guide Wire Health (502-455) SHEATH 5FR Terumo 1 [id number] 588929 093932 050926 5 [place] (CAO735) DIAGNOSTIC Cardinal 1 [id number] 576388 708597 140514 10 UF 5Fr Health catheter ([id number]) SHEATH 6FR Terumo 1 [id number] 636252 545683 428641 40 [place] (RGK961) INFLATOR Merit 1 ES1640 267724 647614 268176 15 [employer] Medical BasixCompak (OB2410) GLIDE WIRE Terumo 1 AP4615 210541 573078 257049 5 ANGLE 260cm (FP8229) SHEATH 6FR Terumo 1 RSR01 648094 56727 422786 5 Destination (RSR01) CHOICE PT Samson 1 [id number] 081264 5 Extra Scientific Support J 300cm guide wire ([id number]) Mozec Rx Cardinal 1 [id number] 116460 8982812 382761 5 UMOE79 4.0 x 30 Health balloon SMART 6 x Cardinal 1 [id number] 657673 712012 407815 0 100 x 120 Health stent ([id number]) POWERFLEX Cardinal 1 [id number] 364333 618556 033857 5 PRO 6.0 x Health 100 x 135cm balloon ([id number]) EXOSEAL 6Fr Cardinal 1 EX600 309812 728721 603170 10 (EX600) Health Signature Audit [place] Stage Time Signature Unsigned Intra-Procedure 04/15/2019 Mariangel Molina 11:04:27 AM RT(R) Intra-Procedure 04/15/2019 Son Hernandez MD 11:04:47 AM 04/15/2019 11:07:48 AM Intra-Procedure 04/15/2019 Mariya Jimenez RN 11:08:14 AM Intra-Procedure 04/15/2019 Son Hernandez 11:08:43 AM [facility] [address] [facility]
[2019-04-15] MEDS ORDERED: SYNTHROID200 MC1 PO (08:20)
[2019-04-15] MEDS ORDERED: ZANAFLEX4 MG PO (08:21)
[2019-04-15] MEDS ORDERED: CATAPRES0.1 MG PO (08:21)
[2019-04-15] MEDS ORDERED: GLUCOPHAGE1000 MG PO (08:21)
[2019-04-15] MEDS ORDERED: ALPHAGAN 0.2%5 ML EACH EYE (08:22)
[2019-04-15] MEDS ORDERED: LASIX40 MG PO (08:22)
[2019-04-15] MEDS ORDERED: FOLIC ACID1 MG PO (08:23)
[2019-04-15] MEDS ORDERED: LYRICA75 MG PO (08:23)
[2019-04-15] MEDS ORDERED: TRADJENTA5 MG PO (08:23)
[2019-04-15] MEDS ORDERED: SYMBICORT 16010.2 GM INH (08:24)
[2019-04-15] MEDS ORDERED: PROTONIX40 MG PO (08:24)
[2019-04-15] MEDS ORDERED: DURAGESIC1 PATCH .7 TRANSDERM (08:24)
[2019-04-15] MEDS ORDERED: FLUTICASONE PRO16 GM NASAL (08:24)
[2019-04-15 08:29] VITALS: BP 166/74; Ht 170.2 cm; Wt 83.6 kg
[2019-04-15 08:38] LABS: BASOPHILS 0.6 % (0-2); EOSINOPHILS 3.9 % (0-7); HEMATOCRIT 38.7 % (36.0-48.0); HEMOGLOBIN 13.8 g/dL (12-16); IMMATURE GRANULOCYTES 0.4 % (0-5); LYMPHOCYTES 38.5 % (15-50); MCH 32.7 pg (26.0-34.0); MCHC 35.7 g/dL (31.0-37.0); MCV 91.7 fL (80.0-100.0); MONOCYTES 5.4 % (2-11); NEUTROPHILS 51.2 % (40-80); PLATELET COUNT 211 10x3/uL (130-400); RBC 4.22 10x6/uL (4.00-5.40); RDW 14.5 % (11.5-14.5); WBC 11.2 10x3/uL (4.8-10.8)
[2019-04-15 08:51] LABS: CALC OSMOLALITY 273 mosm/kg (275-300); CALCIUM 8.8 mg/dL (8.5-10.1); CARBON DIOXIDE 27.5 mmol/L (21.0-32.0); CHLORIDE - SERUM 99 mmol/L (98-107); CHOL - HDL RATIO 11.6 ratio (2.3-4.1); CHOLESTEROL, TOTAL 255 mg/dL (0-200); CREATININE - SERUM 1.1 mg/dL (0.6-1.3); GLUCOSE 224 mg/dL (74-106); HDL CHOLESTEROL 22 mg/dL (32-96); POTASSIUM - SERUM 4.2 mmol/L (3.5-5.1); SODIUM 134 mmol/L (136-145); UREA NITROGEN 11 mg/dL (7-18); eGFR NON AFRICAN AMERICAN 55 mL/min (90-120)
[2019-04-15 08:52] LABS: TRIGLYCERIDE 924 mg/dL (30-200)
[2019-04-15 09:03] LABS: ALT (SGPT) 36 U/L (10-68)
--- NOTE | 2019-04-15 11:15 | NUR ---
PT RECEIVED VIA STRETCHER FROM ROAD GRADER POST AFRO. PT AWAKE BUT DROWSY, RESPONDS TO VERBALI STIMULI. R GROIN W 6FR EXOCELE, DRESSING CDI NO BLEEDING OR SWELLING NOTED. LEGS PINK AND WARM, PEDAL PULSES AUDIBLE W DOPPLER X4. HR SNR RATE 81, BP 147/70, RR 10 SAT 93 ON ROOM AIR, O2 PLACED ON AT 2L/NC. IV PATENT INFUSING VIA L ARM PER GRAVITY. CALL LIGHT IN REACH, SON AT BEDSIDE.
[2019-04-15] MEDS ORDERED: BAYER CHEWABLE81 MG PO (11:27)
--- NOTE | 2019-04-15 11:45 | NUR ---
PT C/O BACK PAIN REQUSTING PAIN MEDICINE. ORDERS RECEIVED. R GROIN SOFT, DRESSING CDI NO BLEEDING OR SWELLING NOTED. LEGS PINK AND WARM. VSS. SON REMAINS AT BS, CALL LIGHT IN REACH. 1152 NORCO 10 GIVEN PER ORDERS FOR BACK PAIN.
--- NOTE | 2019-04-15 12:14 | NUR ---
PT RESTING W EYES CLOSED GROIN REMAINS SOFT, NO BLEEDING OR SWELLING NOTED. PT STATES PAIN IS STILL 9/10 AT THIS TIME. REPOSITIONED BED TO PUT SLIGHT BEND IN KNEE AREA FOR COMFORT. VSS. LEGS REMAIN PINK AND WARM. PT DENIES OTHER NEEDS AT THIS TIME. CALL LIGHT IN REACH
--- NOTE | 2019-04-15 12:31 | NUR ---
PT SLEEPING BUT VERBALLY AROUSABLE. STATES PAIN SOME BETTER, 7/10 NOW. GROIN REMAINS SOFT, DRESSING CDI NO BLEEDING OR SWELLING NOTED. CALL LIGHT IN REACH, SON AT BS.
--- NOTE | 2019-04-15 13:00 | NUR ---
PT RESTING W/O COMPLAINTS. VSS. R GROIN REMAINS CDI NO BLEEDING OR HEMATOMA NOTED. CALL LIGHT IN REACH.
--- NOTE | 2019-04-15 13:26 | NUR ---
PT PLACED ON BEDPAN VOIDED APROX 250 CC CLEAR YELLOW URINE. R GROIN SOFT, DRESSING REMAINS CDI NO BLEEDING OR SWELLING NOTED. DR ANTONIO WAS IN AND SPOKE W PT REGARDING PLAN OF CARE AND PROCEDURE RESULTS. WILL SCHEDULE PT FOR MONDAY TO FIX OTHER LEG. VSS. CALL LIGHT IN REACH
--- NOTE | 2019-04-15 14:05 | NUR ---
R GROIN SOFT, DRESSING CDI NO BLEEDING OR SWELLING NOTED. LEGS REMAINS WARM AND DRY, PEDAL PULSES AUDIBLE W DOPPLER. HOB RAISED ABOUT 30 DEGREES. SANDWICH AND COLA SERVE. PT DENIES PAIN OR NAUSEA. VSS. CALL LIGHT IN REACH
--- NOTE | 2019-04-15 14:30 | NUR ---
PT RESTING IN SEMI FOWLERS POSITION. TOLERATED PO FOOD AND FLUIDS. GROIN REMAINS SOFT, DRESSING CDI NO BLEEDING OR HEMATOMA NOTED. VSS. LEGS REMAIN PINK AND WARM. CALL LIGHT IN REACH, DENIES PAIN OR NEEDS AT THIS TIME.
--- NOTE | 2019-04-15 14:50 | NUR ---
IV REMOVED W CATH INTACT, MONITORS AND O2 REMOVED. GROIN SOFT, DRESSING CDI NO BLEEDING OR SWELLING NOTED. PT UP TO DRESS FOR DISCHARGE. 1455 PT AMBULATED TO BR, VOIDING W/O DIFFICULITY.
--- NOTE | 2019-04-15 15:00 | NUR ---
DISCHARGE INSTRUCTIONS REVIEWED W PT, SHE VERBALIZED UNDERSTANDING. PRE PROCEDURE INSTRUCTIONS ALSO REVIEWED FOR HER PROCEDURE SCHEDULED MONDAY. PT DISCHARGED VIA WC TO SON WAITING IN PRIVATE VEHICLE. PT HAS ALL BELONGINGS AND DISCHARGE INSTRUCTIONS.
--- NOTE | 2019-04-16 13:38 | OP ---
PATIENT NAME: EDITH BETANCUR MEDICAL RECORD: [id number] :65 LOCATION:D.CAT ADMISSION DATE: SURGEON: STEPHANIE ANTONIO MD DATE OF OPERATION: 04/15/2019 PROCEDURES: 1. Stent placement SFA, left. 2. RESEARCH INTERVIEWER SFA, left. 3. Aortofemoral runoff. 4. Abdominal aortography. INDICATION: Claudication and peripheral vascular disease. PROCEDURE IN DETAIL: After informed consent was obtained and after a detailed description of risks, benefits as well as alternative therapies, the patient elected to proceed with angiogram and angioplasty. The right femoral area was prepped and draped in normal sterile fashion. Right femoral artery was cannulated via modified Seldinger technique with placement of a 6-Amharic yaxdlv-vzv-twhw sheath. All catheters exchanged through this sheath. FINDINGS: The abdominal aortography was performed. The catheter was pulled down for aortofemoral runoff. Abdominal aortography reveals no significant abdominal aortic disease, no dissection or aneurysm formation. RIGHT LEG: A. Iliac: The common internal and external iliacs have moderate irregularities, but no flow-limiting stenosis. B. Femoral system: The common and deep femoral are widely patent. Superficial femoral has 70% to 80% stenosis in the mid distal vessel. C. Popliteal and infrapopliteal vessels are patent. There is diffuse disease distally, but there is preserved 3-vessel runoff to the foot. LEFT LEG: A. Iliac: The common internal and external iliacs have mild irregularities, but no flow-limiting stenosis. B. Femoral system: The common and deep femoral are widely patent. Superficial femoral has 99% stenosis in the mid distal vessel. C. Popliteal and infrapopliteal vessels are diffusely diseased, but there is preserved 3-vessel runoff to the foot. RESEARCH INTERVIEWER STENT OF THE LEFT SFA: The balloon used was a 4.0 coronary balloon. This yielded suboptimal result with severe intimal dissection. Stenting was undertaken with a 6 x 100 SMART stent. Result was 0% residual. IMPRESSION: Successful percutaneous transluminal angioplasty stent of the left superficial femoral artery going from 99% initial stenosis to 0% residual. PLAN: For RESEARCH INTERVIEWER stent of the right SFA in the near future. TRANSINT:[id number] Voice Confirmation ID: [id number] DOCUMENT ID: [id number] OPERATIVE REPORT [id number] EDITH BETANCUR STEPHANIE ANTONIO MD at 1338 CC: [id number] DICTATION DATE: 04/15/19 1101 ENTERTAINMENT USHER: 04/15/19 1148 DEP CLI 04/15/19 [facility] [address] [place] [address]
== END 2019-04-15 15:00 | disposition home or self-care (01) ==
LOC: D.CATH 07:47
PROVIDERS: ATTEND Internal Medicine Interventional Cardiology
DX: I70.212 Atherosclerosis of native arteries of extremities with intermittent claudication, left leg (principal)

== ENCOUNTER 2019-04-19 07:53 | Outpatient (CLI) | payer OTHER ==
[~2019-04-19] VITALS: Ht 170.2 cm; Wt 83.6 kg
--- NOTE | ~2019-04-19 | HEMODYNAMI ---
PATIENT:EDITH BETANCUR MEDICAL RECORD: [id number] : 65 LOCATION:ANETA [place]08 ADMISSION DATE: 04/19/19 Generatedon:04/19/201910:36 Patient name: EDITH BETANCUR Patient #: [id number] SSN: [id number] : 1965 Date of study: 04/19/2019 Page: Of Hemodynamic Procedure Report Patient Data Patient Demographics Procedure consent was obtained First Name: DECEMBER Gender: Female Last Name: GYPSY : 1965 [facility] Initial: E Age: 53 year(s) Patient #: [id number] Race: SSN: [id number] Additional ID: [id number] Contact details Address: [address] [place] [address] State: [place] City: [facility] Zip code: [address] Past Medical History Allergies Allergen Reaction Date Comments Reported Other allergy 11/23/2014 Sulfa, Codeine, Latex, Benzonatate Other allergy 04/15/2019 SULFA, GENZONATE Admission Admission Data Admission Date: 04/19/2019 Admission Time: 7:53 Arrival Date: 04/19/2019 Arrival Time: 10:00 Admit Source: Other Insurance Payor: Private Room #: [id number] health insurance Height (in.): 66.93 BSA: 1.96 (m2) Height (cm.): 170 BMI: 29.07 (kg/m2) Weight (lbs.): 185.19 Weight (kg.): 84 Lab Results Lab Result Date: 04/15/2019 Lab Result Time: 0:00 Biochemistry Name Units Result Min Max BUN mg/dl 11 --(-*--)-- 7 18 Creatinine mg/dl 1.1 --(--*-)-- 0.6 1.3 eGFR ml/min 55 *-(----)-- 90 120 NONAFRICAN CBC Name Units Result Min Max Hematocrit % 38.7 *-(----)-- 42 54 Hemoglobin g/dl 13.8 --(*---)-- 13.5 17.5 Procedure Procedure Types Cath Procedure Peripheral Cath Diagnostic Procedure Peripheral vascular Intervention Stent Stent-Fem/Popw/plasty Procedure Description Procedure Date Procedure Date: 04/19/2019 Procedure Start Time: 10:10 Procedure End Time: 10:27 Procedure Staff Name Function Son Hernandez MD Performing Physician Ya Ramey RT Monitor Alondra Gerardo RT Scrub Uziel Lawson RN Nurse Mariya Jimenez RN Nurse Procedure Data Cath Procedure Fluoroscopy Diagnostic fluoroscopy Total fluoroscopy Time: 3.6 time: 3.6 min min Diagnostic fluoroscopy Total fluoroscopy dose: 107 dose: 107 mGy mGy Contrast Material Contrast Material Type Amount (ml) Isovue 300 49 Entry Location Entry Primary Successful Side Size Upsize Upsize Entry Closure Succes sful Closure Location (Fr) 1 (Fr) 2 (Fr) Remarks Device Remarks Femoral Left 6 Fr 6 Fr 6 Fr Exoseal artery Short Long Short Estimated blood loss: 5 ml Diagnostic catheters Device Type Used For End Catheter Placement DIAGNOSTIC UF 5Fr Multi-vessel catheter ([id number]) Angiography Procedure Complications No complications Procedure Medications Medication Administration Route Dosage 0.9% NaCl I.V. 100 ml/hr Oxygen etCO2 Nasal cannula 2 l/min Heparin Flush Bag added to field 2 bags (1000units/500ml NS) Lidocaine 2% added to field 20 Versed I.V. 2 mg Fentanyl I.V. 100 mcg Versed I.V. 2 mg Fentanyl I.V. 100 mcg Heparin Bolus I.V. 4000 units Hemodynamics Rest BSA: 1.96 (m2) HGB: 13.8 (g/dl) O2 Consumption: Estimated: 266.56 (ml/min) O2 Co nsumption indexed: Estimated:136 (ml/min/m) Heart Rate: 0 (bpm) Snapshots Pre Cath Intra NCS Post Cath Vital Signs Time Heart Resp SPO2 etCO2 NIBP (mmHg) Rhythm Pain Sedation Rate (ipm) (%) (mmHg) Status Level (bpm) 9:51:39 71 15 96 0 186/93(156) NSR 0 (11) 10(A) , No pain 9:56:07 70 13 96 44.8 167/84(137) NSR 0 (11) 10(A) , No pain 10:00:25 71 11 95 47.8 164/86(130) NSR 0 (11) 10(A) , No pain 10:04:47 71 10 97 46.3 151/75(111) NSR 0 (11) 10(A) , No pain 10:09:03 70 12 96 45.5 156/76(117) NSR 0 (11) 10(A) , No pain 10:13:21 70 10 96 49.3 152/74(115) NSR 0 (11) 10(A) , No pain 10:17:37 70 17 95 46.4 148/78(108) NSR 0 (11) 10(A) , No pain 10:21:53 73 16 94 47.8 148/77(117) NSR 0 (11) 10(A) , No pain 10:26:07 73 18 96 51.6 146/82(121) NSR 0 (11) 10(A) , No pain Medications Time Medication Route Dose Verified Delivered Reason Notes Effectiveness by by 9:59:22 0.9% NaCl I.V. 100 Uziel Uziel Per physician ml/hr Lulu Lawson RN RN 9:59:31 Oxygen etCO2 2 Uziel Uziel for low 02 sats Nasal l/min Lulu Lawson cannula RN RN 9:59:41 Heparin Flush added 2 Uziel Uziel used for Bag to bags Lulu Lawson procedure (1000units/500ml RN RN NS) 9:59:52 Lidocaine 2% added 20ml Uziel Uziel for local to vial Lulu Lawson anesthetic RN RN 10:10:05 Versed I.V. 2 mg Uziel Uziel for sedation Lulu Lawson RN RN 10:10:13 Fentanyl I.V. 100 Uziel Uziel for sedation mcg Lulu Lawson RN RN 10:11:50 Versed I.V. 2 mg Uziel Uziel for sedation Lulu Lawson RN RN 10:11:57 Fentanyl I.V. 100 Uziel Uziel for sedation mcg Lulu Lawson RN RN 10:15:08 Heparin Bolus I.V. 4000 Uziel Uziel for units Lulu Lawson anticoagulation RN electrical test engineer Log Time Note 9:09:44 Diagnostic Cath Status : Elective 9:11:24 Alondra BREAUX(R) sent for patient. Start room use. 9:11:25 Time tracking: Regular hours (M-F 7:00 - 5:00) 9:11:29 Plan of Care:Hemodynamics will remain stable., Cardiac rhythm will remain stable., Comfort level will be maintained., Respiratory function will remain adequate., Patient/ family verbilizes understanding of procedure., Procedure tolerated without complication., Recovers from procedure without complications.. 9:18:00 Admit Source: Other 9:18:07 Arrival Date: 04/19/2019 10:00:00 AM 9:18:31 Insurance Payor : Private health insurance 9:42:37 Patient Weight : 185.19 lbs 9:42:43 Patient Height : 66.93 inches 9:42:55 Patient received from Pre/Post Procedure Room to CCL 2 Alert and oriented. Tansferred to table in Supine position. 9:42:58 Signed procedure consent form obtained from patient. 9:42:59 Warm blankets applied, and sonny hugger turned on for patient comfort. 9:42:59 Correct patient and procedure confirmed by team. 9:43:00 ECG and BP/O2 sat monitors applied to patient. 9:49:14 RIOS 16FR w/Drainage Bag ([id number]) opened to sterile field. 9:50:28 Mariya Jimenez RN inserting rios catheter at patients request 9:50:31 Vital chart was started 9:51:56 Baseline sample Acquired. 9:53:05 Baseline sample Acquired. 9:53:09 Baseline sample Acquired. 9:53:16 Baseline sample Acquired. 9:53:48 Baseline sample Acquired. 9:53:50 Baseline sample Acquired. 9:53:58 Rhythm: sinus rhythm 9:53:59 Full Disclosure recording started 9:54:05 H&P Date Dictated: 04/19/2019 Within 30 days and on chart., H&P Addendum completed by physician on day of procedure. (MUST COMPLETE FOR ALL OUTPATIENTS). 9:54:06 Pre-procedure instructions explained to patient. 9:54:07 Pre-op teaching completed and patient verbalized understanding. 9:54:08 Family in waiting room. 9:54:10 Patient NPO since Midnight. 9:54:11 Is the patient allergic to Iodine/contrast media? No. 9:54:12 Was the patient premedicated? No 9:54:13 Is patient on blood thinner?Yes 9:54:16 ACC The patient was administered the following blood thiners within the last 24 hours: ACCPlavix 9:54:20 Patient diabetic? Yes. 9:54:21 If diabetic: On Metformin? No 9:54:24 Previous problem with sedation/anesthesia? No ? 9:54:25 Snore? Yes 9:54:26 Sleep apnea? Yes 9:54:27 Deviated septum? No 9:54:28 Opens mouth fully? Yes 9:54:29 Sticks out tongue? Yes 9:54:37 Airway obstruction? Yes copd asthma 9:54:43 Dentures? No ? 9:54:47 Pre procedure: right dorsailis pedis pulse 1+ Palpable, but thready & weak; easily obliterated 9:54:49 Pre procedure: left dorsailis pedis pulse 1+ Palpable, but thready & weak; easily obliterated 9:54:51 Patient pain scale 0/10 ?. 9:54:56 IV patent on arrival in left forearm with 0.9% NaCl at [facility] 9:54:58 Lab results completed and on chart. 9:55:03 Bilateral groins area was prepped with chlora-prep and draped in sterile fashion 9:55:04 Alarms reviewed by R. N. 9:55:05 Sharps counted by scrub and verified by R.N. 9:59:22 0.9% NaCl 100 ml/hr I.V. was administered by Uziel Lawson RN; Per physician; Verbal order read back and verified. 9:59:31 Oxygen 2 l/min etCO2 Nasal cannula was administered by Uziel Lawson RN; for low 02 sats; Verbal order read back and verified. 9:59:41 Heparin Flush Bag (1000units/500ml NS) 2 bags added to field was administered by Uziel Lawson RN; used for procedure; Verbal order read back and verified. 9:59:52 Lidocaine 2% 20ml vial added to field was administered by Uziel Lawson RN; for local anesthetic; Verbal order read back and verified. 10:08:22 Physician arrived 10:08:23 --------ALL STOP TIME OUT------ 10:08:24 Final Timeout: patient, procedure, and site verified with staff and physician. All members of the team are in agreement. 10:08:27 Bilateral groins site verified by team. 10:08:32 Fire Safety Assessment: A--An alcohol-based skin anteseptic being used preoperatively., C--Open oxygen or nitrous oxide is being used., D--An ESU, laser, or fiber-optic light is being used. 10:08:36 Physical assessment completed. ASA score P 2 - A patient with mild systemic disease as per Son Hernandez MD. 10:08:47 3a) 45-59 Moderately reduced kidney function. 10:08:58 Maximum allowable contrast dose (3.7 X eGFR X 0.75)153 ml. 10:09:03 Sedation plan: IV Moderate Sedation Medication:Versed, Fentanyl 10:10:05 Versed 2 mg I.V. was administered by Uziel Lawson RN; for sedation; Verbal order read back and verified. 10:10:13 Fentanyl 100 mcg I.V. was administered by Uziel Lawson RN; for sedation; Verbal order read back and verified. 10:10:30 Use device set CATH PACK 10:10:31 ACIST Syringe (08082) opened to sterile field. 10:10:32 ACIST Hand Control (32479) opened to sterile field. 10:10:32 ACIST Manifold (10621) opened to sterile field. 10:10:33 Medline Cath Pack ([id number]) opened to sterile field. 10:10:34 Bag Decanter (2002S) opened to sterile field. 10:10:34 EMERALD Guide Wire (772-153) opened to sterile field. 10:10:45 SHEATH 6FR [place] (NXC657) opened to sterile field. 10:10:49 Procedure started. 10:10:59 Local anesthetic to left femerol artery with Lidocaine 2% by Son Hernandez MD.INITIAL ACCESS ONLY 10:11:50 Versed 2 mg I.V. was administered by Uziel Lawson RN; for sedation; Verbal order read back and verified. 10:11:57 Fentanyl 100 mcg I.V. was administered by Uziel Lawson RN; for sedation; Verbal order read back and verified. 10:12:16 SHEATH 6FR Destination (RSR01) opened to sterile field. 10:12:39 GLIDE WIRE ANGLE 260cm (KH2656) opened to sterile field. 10:14:15 A 6 Fr Short sheath was inserted into the Left Femoral artery 10:14:32 A DIAGNOSTIC UF 5Fr catheter ([id number]) was advanced over the wire and used for Multi-vessel Angiography. 10:15:08 Heparin Bolus 4000 units I.V. was administered by Uziel Lawson RN; for anticoagulation; Verbal order read back and verified. 10:16:01 Catheter removed. 10:16:07 Sheath upsized to a 6 Fr Long. 10:18:07 glide wire advanced. 10:19:26 Right leg runoff performed. 10:19:26 Procedure type changed to Cath procedure, Peripheral Cath Diagnostic Procedure, Peripheral vascular Intervention, Stent, Stent-Fem/Popw/plasty 10:19:47 Inflate balloon Inflation number: 1 A POWERFLEX PRO 6.0 X 20 X 135 balloon ([id number]) was prepped and advanced across the Mid Superficial Femoral, Right , then inflated to 9 RIYA for 0:10 (min:sec) . 10:20:46 Balloon removed over the wire. 10:21:11 SMART 6 X 40 X 120 stent ([id number]) was deployed across Mid Superficial Femoral, Right . 10:22:07 Stent catheter was removed intact over wire. 10:23:00 Inflation number: 2 The POWERFLEX PRO 6.0 X 20 X 135 balloon ([id number]) was reinflated across the Mid Superficial Femoral, Right , to 5 RIYA for 0:10 (min:sec) . 10:23:50 ACT drawn and resulted at 246 seconds. (normal therapeutic range 180-240 seconds). 10:23:55 Balloon removed over the wire. 10:24:20 Sheath upsized to a 6 Fr Short. 10:24:20 Sheath removed intact; hemostasis achieved with Exoseal to the Left Femoral artery. 10:24:57 Procedure ended.(Physican Out) 10:25:34 Fluoroscopy time 03.60 minutes. 10::58 Flurop Dose total: 107 10:25:58 Fluoroscopy dose: 107 mGy 10:26:03 Dose Area Product 53591 mGy/cm. 10:26:06 Contrast amount:Isovue 300 49ml. 10:26:08 Sharps counted by scrub and verified by R.N. 10:26:11 Insertion/operative site no bleeding no hematoma. 10:26:49 Post-op/insertion site Left Femoral artery dressed using a 4 x 4 and Tegaderm. 10:26:50 Post Procedure Pulses reassessed and unchanged 10::53 Post procedure rhythm: unchanged. 10::55 Estimated blood loss: 5 ml 10::57 Post procedure instruction explained to patient.Patient verbalizes understanding. 10::57 Patient needs reinforcement of post procedure teaching. 10:26:58 Procedure and supply charges have been captured, reviewed, submitted and are correct. 10:27:02 Procedure Complication : No complications 10::05 Vital chart was stopped 10::05 See physician's report for complete and final results. 10:27:10 Report given to Pre/Post Procedure Room. 10:27:13 Patient transfered to Pre/Post Procedure Room with Stretcher. 10::15 Procedure ended. 10::15 Full Disclosure recording stopped 10::22 ACC-PCI Only Patient was given prescriptions, or instructed by Son Hernandez MD to start/continue the following medications upon discharge: Plavix 10::23 End room use (Document Last) 10::22 EXOSEAL 6Fr (EX600) opened to sterile field. Intervention Summary Intervention Notes Time ActionType Lesion and Equipment Action# Pressure Duration Attributes Used 10:19:47 Inflate Mid POWERFLEX 1 9 00:10 balloon Superficial PRO 6.0 X Femoral, 20 X 135 Right balloon ([id number]) 10:21:11 Deploy self Mid SMART 6 X 1 expanding Superficial 40 X 120 stent Femoral, stent Right ([id number]) 10:23:00 Reinflate Mid POWERFLEX 2 5 00:10 balloon Superficial PRO 6.0 X Femoral, 20 X 135 Right balloon ([id number]) Device Usage Item Name Manufacture Quantity Catalog Hospital Part Current Minimal L ot# / Number Charge Number Stock Stock Serial# Code BLANCA 16FR Bard 1 [id number] [id number] 5 w/Drainage Bag ([id number]) ACIST Acist 1 06280 785004 120354 374244 20 Syringe Medical (34568) Systems Inc ACIST Hand Acist 1 05073 362377 037925 702302 5 Control Medical (59469) Systems Inc ACIST Acist 1 90548 378394 623555 213047 5 Manifold Medical (29670) Systems Inc Medline Medline 1 [id number] 831704 66131 754266 5 Cath Pack ([id number]) Bag Microtek 1 2001S 320512 53525 698283 5 DecEtubics Medical Inc. (2001S) EMERALD Cardinal 1 502-455 088624 681143 605227 5 Guide Wire Health (502-455) SHEATH 6FR Terumo 1 SLY110 972113 850945 457973 40 [place] (UNW207) SHEATH 6FR Terumo 1 RSR01 633247 35967 532939 5 Destination (RSR01) GLIDE WIRE Terumo 1 OX6925 009912 537728 341219 5 ANGLE 260cm (FX4033) DIAGNOSTIC Cardinal 1 [id number] 989104 985437 484041 10 UF 5Fr Health catheter ([id number]) POWERFLEX Cardinal 1 [id number] 535227 547954 488321 5 PRO 6.0 X Health 20 X 135 balloon ([id number]) SMART 6 X Cardinal 1 [id number] 653362 552695 485114 0 1 [id number] 40 X 120 Health stent ([id number]) EXOSEAL 6Fr Cardinal 1 EX600 186707 402152 769705 10 (EX600) Health Signature Audit [place] Stage Time Signature Unsigned Intra-Procedure 04/19/2019 Ya Ramey 10:33:12 AM RT(R) Intra-Procedure 04/19/2019 Uziel 10:35:15 AM Lulu GARCIA Intra-Procedure 04/19/2019 Son Hernandez 10:36:04 AM [facility] [address] [place] [address]
[~2019-04-19 07:53] MED LIST changes: +ALPHAGAN 0.2%5 ML EACH EYE; +BAYER CHEWABLE81 MG PO; +CATAPRES0.1 MG PO; +DURAGESIC1 PATCH .7 TRANSDERM; +FLUTICASONE PRO16 GM NASAL; +FOLIC ACID1 MG PO; +GLUCOPHAGE1000 MG PO; +LASIX40 MG PO; +LYRICA75 MG PO; +SYMBICORT 16010.2 GM INH; +SYNTHROID200 MC1 PO; +TRADJENTA5 MG PO; +ZANAFLEX4 MG PO
[2019-04-19 09:23] LABS: CALCIUM 9.3 mg/dL (8.5-10.1); CREATININE - SERUM 1.1 mg/dL (0.6-1.3)
[2019-04-19 09:26] VITALS: BP 151/69; Ht 170.2 cm; Wt 83.6 kg
[2019-04-19 09:26] LABS: BASOPHILS 1.8 % (0-2); EOSINOPHILS 5.6 % (0-7); HEMATOCRIT 38.8 % (36.0-48.0); IMMATURE GRANULOCYTES 0.7 % (0-5); LYMPHOCYTES 31.5 % (15-50); MCH 31.9 pg (26.0-34.0); MCHC 33.5 g/dL (31.0-37.0); MCV 95.3 fL (80.0-100.0); MEAN PLATELET VOLUME 10.8 fL (7.4-10.4); MONOCYTES 6.4 % (2-11); PLATELET COUNT 250 10x3/uL (130-400); RBC 4.07 10x6/uL (4.00-5.40); RDW 14.7 % (11.5-14.5); WBC 10.7 10x3/uL (4.8-10.8)
--- NOTE | 2019-04-19 11:05 | NUR ---
PT BETHANIE SIPS OF COLA WITH NO NAUSEA. DRESING IS CDI TO LEFT GROIN, PEDAL PULSES BY DOPPLER. HOB IS FLAT, VSS, REQUESTS PAIN MEDICATION FOR CHRONIC BACK PAIN EXACERBATED BY LAYING FLAT AND ORDER OBRAINED FOR NORCO 10 MG ONE TAB PO.
--- NOTE | 2019-04-19 11:28 | NUR ---
NORCO 10MG TAB PO FOR C/O BACK PAIN. DRESSING CDI LEFT GROIN, PULSES BY DOPPLER. BETHANIE SIPS OF SODA, RIOS DRAINING CLEAR YELLOW URINE. PT DENIES NEEDS AT THIS TIME. HOB IS FLAT, VSS.
--- NOTE | 2019-04-19 11:41 | NUR ---
PT SLEEPING, RESP WITH EASE ON O2 AT 2LPM VIA NC. DRESSING CDI LEFT GROIN, PEDAL PULSES BY DOPPLER. HOB IS FLAT, VSS.
--- NOTE | 2019-04-19 12:07 | NUR ---
DRESSING CDI, PEDAL PULSES PALPABLE. PT DENIES ANY C/O AT THIS TIME, NSR, RATE 72 BP IS 153/75.
--- NOTE | 2019-04-19 12:08 | HP ---
PATIENT: GYPSY MEDICAL RECORD: [id number] ACCOUNT: [id number] LOCATION:ANETA SHIRLEY08 : 65 ADMISSION DATE: 04/19/19 PCP: MORGAN AYOUB DO HISTORY AND PHYSICAL EXAMINATION ADMITTING DIAGNOSES: 1. Claudication. 2. Peripheral vascular disease. 3. Recent LEVELER stent left SFA with concomitant 90% stenosis right SFA. 4. Coronary artery disease. 5. Hypertension. 6. Hyperlipidemia. HISTORY OF PRESENT ILLNESS: Mrs. Long presents with continued claudication, now right leg greater than left. She underwent successful LEVELER stent of the left leg last week. She has a known 90% stenosis of the right SFA that is now going to be addressed. REVIEW OF SYSTEMS: The patient reports easy bruising but reports no swollen glands. The patient reports no fever, no night sweats, no significant weight gain, no significant weight loss. No significant exercise tolerance. The patient reports no dry eyes, no irritation, no vision change. Patient reports no difficulty hearing and no ear pain. Patient reports no frequent nose bleeds or nose and sinus problems. Patient reports on arm pain on exertion. No shortness of breath while lying down. No history of heart murmur. Patient reports no cough, no wheezing or coughing up blood. Patient reports no abdominal pain, no vomiting. Normal appetite. No diarrhea and not vomiting blood. No nausea and no constipation. Patient reports no incontinence. No difficulty urinating. No hematuria. No increased frequency. Patient reports no muscle aches. No weakness, no arthralgias, no back pain. No swelling of the extremities. Patient reports no abnormal mole, no jaundice, no rashes. Reports no loss of consciousness. No weakness and no numbness. No seizures, dizziness, or headaches. The patient reports no depression, no sleep disturbance, feeling safe in a relationship and no alcohol abuse. Patient reports on fatigue. Reports no runny nose or sinus pressure. No itching, no hives, and no frequent sneezing. FAMILY HISTORY: Positive for premature coronary artery disease. SOCIAL HISTORY: Lives in the [place] area. Denies ETOH, is a previous smoker, but not a current smoker. PHYSICAL EXAMINATION: CONSTITUTIONAL/GENERAL APPEARANCE: Well nourished, well developed, appears stated age. EYES: Lids and conjunctivae noninjected. No discharge. No pallor. ENT: Lips within normal limit. No cyanosis. No pallor. NECK: Carotid arteries, bilateral normal upstroke. No bruits. No thrills. No jugular venous pressure or distention. CERVICAL LYMPH NODES: Nontender. Nonenlarged. THYROID: Not enlarged. No nodules. CARDIOVASCULAR: Precordial exam, nondisplaced. No heaves or pericardial thrills. Rate and rhythm, regular. Heart sounds, normal S1, normal S2. No S3, no gallop, no rub. Systolic murmur, not heard. Diastolic murmur, not heard. RESPIRATORY: Respiratory effort, unlabored. Normal curvature. No thoracic HISTORY AND PHYSICAL [id number] SIV,December deformity. No chest wall tenderness. Percussion, resonant. Auscultation, clear. No wheezes, no rales, no rhonchi. ABDOMEN: Soft, nondistended, nontender. No abdominal pain, no vomiting and normal appetite. MUSCULOSKELETAL: No joint tenderness, normal gait, normal tone. SKIN: Warm and dry. OVERALL IMPRESSION: Claudication with known disease of the SFA, right. We will proceed with transcatheter revascularization of SFA right. TRANSINT:[id number] Voice Confirmation ID: [id number] DOCUMENT ID: [id number] STEPHANIE ANTONIO MD at 1208 CC: [id number] DICTATION DATE: 04/19/19 1035 RIDER TICKET WORKER: 04/19/19 1056 [facility] [address] [place] [address]
--- NOTE | 2019-04-19 12:42 | NUR ---
PT SLEEPING INTERMITTENTLY, DENIES ANY C/O, DRESSING CDI LEFT GROIN, PEDAL PULSES BY DOPPLER, NSR, RATE IS 73, BP IS 150/78, HOB IS FLAT, CALL LIGHT IN REACH.
--- NOTE | 2019-04-19 13:33 | NUR ---
1320 HOB ELEVATED 30 DEGREES, DRESSING REMAINS CDI, PEDAL PULSES BY DOPPLER. FEET WARM WITH BRISK CAP REFILL. PT ALERT AND DENIES ANY C/O.
--- NOTE | 2019-04-19 14:13 | NUR ---
1350 HOB FULLY ELEVATED, DRESSING CDI LEFT GROIN, PEDAL PULSES BY DOPPLER. PT IS ALERT, SANDWICH SERVED, PO FLUIDS AT BEDSIDE. 1410 DC INSTRUCTIONS REVIEWED WITH PT WHO VERBALIZES UNDERSTANDING. RIOS CATH DC'D WITH CATH TIP INTACT AFTER 10 CC CLEAR FLUID DRAINED FROM BULB. PT BETHANIE WELL. TOTAL OUTPUT 950 CC CLEAR YELLOW URINE. IV DC'D WITH CATH TIP INTACT. DRESSING CDI TO LEFT GROIN, AREA IS SOFT AND NONTENDER. PT DENIES ANY N/V DEFICIT TO BILAT LE'S. PT IS DRESSING FOR DC TO HOME.
--- NOTE | 2019-04-19 14:31 | NUR ---
1430 PT HAS DRESSED FOR DC TO HOME. HAS BEEN UP IN ROOM, AMBULATING WITHOUT DIFFICULTY. DENIES ANY C/O. DRESSING REMAINS CDI LEFT GROIN. PT ESCORTED TO PRIVATE AUTO VIA WC BY NURSE WITH FAMILY MEMBER DRIVING HER HOME. PT IS ALERT AND DENIES ANY C/O UPON DC. HAS ALL PERSONAL BELONGINGS AND DC INSTRUCTIONS AT TIME OF DISCHARGE.
--- NOTE | 2019-04-22 14:34 | OP ---
PATIENT NAME: EDITH BETANCUR MEDICAL RECORD: [id number] :65 LOCATION:D.CAT ADMISSION DATE: SURGEON: STEPHANIE ANTONIO MD DATE OF OPERATION: 04/19/2019 PROCEDURES: 1. Stent placement SFA, right. 2. RAIL PROJECT ENGINEER SFA, right. 3. Unilateral extremity angiography. INDICATION: Claudication and peripheral vascular disease. PROCEDURE IN DETAIL: After informed consent was obtained and after a detailed description of risks, benefits as well as alternative therapies, the patient elected to proceed with angiogram and angioplasty. The left femoral area was prepped and draped in normal sterile fashion. Left femoral artery was cannulated via modified Seldinger technique with placement of a 6-Tajik kpcbid-[id number]-ckdn sheath. All catheters exchanged through this sheath. FINDINGS: The right SFA has a 90% stenosis in the mid vessel. This was addressed with a 6.0 balloon yielding suboptimal result with severe intimal dissection. Stenting was undertaken with a 6 x 40 SMART stent. Result was 0% residual stenosis. OVERALL IMPRESSION: Successful RAIL PROJECT ENGINEER stent of the right SFA going from 90% initial stenosis to 0% residual. TRANSINT:[id number] Voice Confirmation ID: [id number] DOCUMENT ID: [id number] STEPHANIE ANTONIO MD at 1434 CC: [id number] DICTATION DATE: 04/19/19 1233 CLERGY MEMBER: 04/19/19 1327 DEP CLI 04/19/[address] [facility] [address] [place] [address]
== END 2019-04-19 14:30 | disposition home or self-care (01) ==
LOC: D.CATH 07:53 → D.CLR 10:17 → D.CATH 14:30
PROVIDERS: ATTEND Internal Medicine Interventional Cardiology
DX: I70.213 Atherosclerosis of native arteries of extremities with intermittent claudication, bilateral legs (principal); I10 Essential (primary) hypertension; E78.5 Hyperlipidemia, unspecified; I25.10 Atherosclerotic heart disease of native coronary artery without angina pectoris

== ENCOUNTER → 2019-05-01 14:52 | Outpatient (CLI) | payer OTHER ==
[2019-04-19 09:26] VITALS: BMI 28.9
[~2019-05-01 14:52] MED LIST changes: +PHENERGAN25 M1 PO
[2019-05-02 15:10] LABS: IMMUNOFIXATION Note: (()); IMMUNOFIXATION - URINE Note: (()); IMMUNOGLOBULIN A 496 mg/dL (87-352); IMMUNOGLOBULIN G 1406 mg/dL (700-1600); IMMUNOGLOBULIN M 50 mg/dL (26-217)
== END | disposition home or self-care (01) ==
LOC: D.LAB 14:52
PROVIDERS: ATTEND Nurse Practitioner Family
DX: E11.22 Type 2 diabetes mellitus with diabetic chronic kidney disease (principal); I73.9 Peripheral vascular disease, unspecified; I25.10 Atherosclerotic heart disease of native coronary artery without angina pectoris; I10 Essential (primary) hypertension; E34.9 Endocrine disorder, unspecified; Z72.0 Tobacco use

== ENCOUNTER → 2019-05-24 08:01 | Outpatient (CLI) | payer OTHER ==
[2019-04-19 09:26] VITALS: BMI 28.9
--- NOTE | 2019-05-29 14:07 | ST ---
PATIENT:GYPSY MEDICAL RECORD: [id number] SEX: F LOCATION:[facility] ORDER #: ADMISSION DATE: 05/24/19 AGE OF PATIENT: 53 REFERRING PHYSICIAN: INTERPRETING PHYSICIAN: STEPHANIE ANTONIO MD DATE OF SERVICE: 05/24/2019 INDICATION: Angina, coronary artery disease, shortness of breath, hypertension. TECHNIQUE: Mrs. Long was exercised on standard Lexiscan protocol with 32 mCi of sestamibi injected at peak stress, 11 mCi used previously for rest images. FINDINGS: Gated SPECT reveals decreased ejection fraction of 44% with decreased thickening and brightening throughout the anterior segments. SPECT imaging Cardiolite was used as myocardial perfusion agent. There was a large fixed perfusion defect anteriorly, apically, and laterally compatible with previous anterolateral myocardial infarction. No significant evidence of reversible ischemia. The remaining segments are with homogeneous uptake at rest and stress. OVERALL IMPRESSION: This is an intermediate risk abnormal nuclear stress test in this patient who has had no past history of a myocardial infarction suggestive of hemodynamically significant coronary disease and a relatively large myocardial infarction that has been sustained throughout the anterior, apical and lateral segments with a resultant ischemic cardiomyopathy, ejection fraction of 44%. TRANSINT:[id number] Voice Confirmation ID: [id number] DOCUMENT ID: [id number] STEPHANIE ANTONIO MD at 1407 CC: MORGAN AYOUB DO [id number] DICTATION DATE: 05/24/19 1446 HARBOR DEPARTMENT MANAGER: 05/25/19 0736 DEP CLI 05/24/19 [facility] [id number] [place] [address]
== END | disposition home or self-care (01) ==
LOC: D.HCCARDIO 08:01
PROVIDERS: ATTEND Internal Medicine Interventional Cardiology
DX: I25.10 Atherosclerotic heart disease of native coronary artery without angina pectoris (principal)

== ENCOUNTER 2019-05-29 08:28 | Outpatient (CLI) | payer OTHER ==
[~2019-05-29] VITALS: Ht 170.2 cm; Wt 89.1 kg
--- NOTE | ~2019-05-29 | HEMODYNAMI ---
PATIENT:EDITH BETANCUR E MEDICAL RECORD: [id number] : 65 LOCATION:[facility] ADMISSION DATE: 05/29/19 Generatedon:05/29/201911:49 Patient name: EDITH BETANCUR Patient #: [id number] SSN: [id number] : 1965 Date of study: 05/29/2019 Page: Of Hemodynamic Procedure Report Patient Data Patient Demographics Procedure consent was obtained First Name: DECEMBER Gender: Female Last Name: GYPSY : 1965 Middle Initial: E Age: 53 year(s) Patient #: [id number] Race: Unknown SSN: [id number] Additional ID: [id number] Contact details Address: [address] [place] [address] State: [place] City: [facility] Zip code: [address] Past Medical History History of disease Date Diagnosis Comments CAD Allergies Allergen Reaction Date Comments Reported Other allergy 11/23/2014 Sulfa, Codeine, Latex, Benzonatate Other allergy 04/15/2019 SULFA, GENZONATE Other allergy 05/29/2019 sulfa Admission Admission Data Admission Date: 05/29/2019 Admission Time: 8:28 Arrival Date: 05/29/2019 Arrival Time: 0:00 Admit Source: Other Insurance Payor: Private health insurance [facility] #: [id number] Height (in.): 67 BSA: 1.98 (m2) Height (cm.): 170.18 BMI: 29.76 (kg/m2) Weight (lbs.): 190 Weight (kg.): 86.18 Lab Results Lab Result Date: 05/29/2019 Lab Result Time: 0:00 Biochemistry Name Units Result Min Max BUN mg/dl 8 --(*---)-- 7 18 Creatinine mg/dl 1 --(--*-)-- 0.6 1.3 eGFR ml/min 61.69952 *-(----)-- 90 120 NONAFRICAN CBC Name Units Result Min Max Hematocrit % 42.6 --(*---)-- 42 54 Hemoglobin g/dl 13.9 --(*---)-- 13.5 17.5 Procedure Procedure Types Cath Procedure Diagnostic Procedure [facility] w/Coronaries FFR/IVUS FFR Initial Sedation Charges Moderate Sedation up to 30 minutes PCI Procedure Coronary Stent Coronary Stent Initial x2 Coronary Atherectomy Atherectomy w/PTCA Coronary Initial Procedure Description Procedure Date Procedure Date: 05/29/2019 Procedure Start Time: 11:11 Procedure End Time: 11:48 Procedure Staff Name Function Son Hernandez MD Performing Physician Mariangel Molina RT Monitor Gin Ribera RT Monitor Silverio Navarro RT Scrub Nita Muller RT Scrub Mariya Jimenez RN Nurse Idalmis Montemayor RN Cable Mock Up Assembler Indication CAD Angina Procedure Data Cath Procedure Fluoroscopy Diagnostic fluoroscopy Total fluoroscopy Time: 0 time: 0 min min Diagnostic fluoroscopy Total fluoroscopy dose: dose: 1596 mGy 1596 mGy Contrast Material Contrast Material Type Amount (ml) Isovue 300 157 Entry Location Entry Primary Successful Side Size Upsize Upsize Entry Closure Treviño ccessful Closure Location (Fr) 1 (Fr) 2 (Fr) Remarks Device Remarks Radial Right 6 Fr Mechanical artery Short Compression Estimated blood loss: 10 ml Diagnostic catheters Device Type Used For End Catheter Placement DIAGNOSTIC [place] 110cm 5 Procedure Fr catheter ([id number]) Procedure Complications No complications Procedure Medications Medication Administration Route Dosage Oxygen etCO2 Nasal cannula 2 l/min Lidocaine 2% added to field 20 Heparin Flush Bag added to field 2 bags (1000units/500ml NS) 0.9% NaCl I.V. 100 ml/hr Radial Cocktail I.A. 1 syringe (Verapamil 2mg/Nitro 400mcg/Heparin 1500units) Versed I.V. 2 mg Fentanyl I.V. 100 mcg Versed I.V. 2 mg Fentanyl I.V. 100 mcg Versed I.V. 2 mg Fentanyl I.V. 100 mcg Heparin Bolus I.V. 4000 units Versed I.V. 2 mg Fentanyl I.V. 100 mcg Hemodynamics Rest BSA: 1.98 (m2) HGB: 13.9 (g/dl) O2 Consumption: Estimated: 198.07 (ml/min) O2 Co nsumption indexed: Estimated:100.04 (ml/min/m) Heart Rate: 78 (bpm) Snapshots Pre Cath Intra NCS Post Cath Vital Signs Time Heart Resp SPO2 etCO2 NIBP (mmHg) Rhythm Pain Sedation Rate (ipm) (%) (mmHg) Status Level (bpm) 10:58:13 80 14 96 31.8 188/95(143) NSR 0 (11) 10(A) , No pain 11:02:39 108 21 96 31 187/86(151) NSR 0 (11) 10(A) , No pain 11:07:08 82 11 94 37 169/81(129) NSR 0 (11) 10(A) , No pain 11:11:24 81 11 94 35.5 141/75(106) NSR 0 (11) 10(A) , No pain 11:15:38 75 14 92 32.5 113/61(89) NSR 0 (11) 10(A) , No pain 11:19:48 84 13 93 37 124/66(117) NSR 0 (11) 9(A) , No pain 11:24:02 84 16 92 35.5 119/64(110) NSR 0 (11) 9(A) , No pain 11:29:03 92 16 94 36.2 151/78(118) NSR 0 (11) 9(A) , No pain 11:33:17 98 11 94 35.5 170/98(141) NSR 0 (11) 9(A) , No pain 11:37:39 99 11 93 34 194/113(159) NSR 0 (11) 10(A) , No pain 11:42:11 100 15 93 34 214/113(167) NSR 0 (11) 10(A) , No pain 11:46:52 93 28.7 205/119(161) NSR 0 (11) 10(A) , No pain Medications Time Medication Route Dose Verified Delivered Reason Not es Effectiveness by by 10:56:03 Oxygen etCO2 2 l/min Son Mearz used for Nasal Mary Jimenez jewelry finisher cannula 10:56:11 Lidocaine 2% added 20ml Son Cline for local to vial Mary Hernandez MD anesthetic field 10:56:18 Heparin Flush added 2 bags Son Cline used for Bag to Mary Hernandez MD procedure (1000units/500ml field NS) 10:56:44 0.9% NaCl I.V. 100 Son Buffie Per physician ml/hr Mary Jimenez RN 10:56:54 Radial Cocktail I.A. 1 Son Cline for (Verapamil syringe Mary Hernandez MD vasodilation 2mg/Nitro 400mcg/Heparin 1500units) 11:09:47 Versed I.V. 2 mg Son Buffie for sedation Mary Jimenez RN 11:09:55 Fentanyl I.V. 100 mcg Son Buffie for sedation Mary Jimenez RN 11:12:07 Versed I.V. 2 mg Son Buffie for sedation Mary Jimenez RN 11:12:11 Fentanyl I.V. 100 mcg Son Buffie for sedation Mary Jimenez RN 11:16:01 Versed I.V. 2 mg Son Buffie for sedation Mary Jimenez RN 11:16:04 Fentanyl I.V. 100 mcg Son Buffie for sedation Mary Jimenez RN 11:17:03 Heparin Bolus I.V. 4000 Son Buffie for darian ified units Mary Jimenez RN anticoagulation with dr hernandez 11:27:49 Versed I.V. 2 mg Son Buffie for sedation Mary Jimenez RN 11:27:52 Fentanyl I.V. 100 mcg Son Buffie for sedation Mary Jimenez RN Procedure Log Time Note 10:43:35 Procedure Status Elective Heart Cath (OP). 10:43:38 Idalmis Montemayor RN sent for patient. Start room use. 10:43:39 Time tracking: Regular hours (M-F 7:00 - 5:00) 10:43:42 Plan of Care:Hemodynamics will remain stable., Cardiac rhythm will remain stable., Comfort level will be maintained., Respiratory function will remain adequate., Patient/ family verbilizes understanding of procedure., Procedure tolerated without complication., Recovers from procedure without complications.. 10:44:18 H&P Date Dictated: 05/16/2019 Within 30 days and on chart., H&P Addendum completed by physician on day of procedure. (MUST COMPLETE FOR ALL OUTPATIENTS). 10:44:29 Patient allergic to Other allergysulfa 10:45:07 Lab Result : BUN 8 mg/dl 10:45:07 Lab Result : Creatinine 1 mg/dl 10:45:07 Lab Result : eGFR NONAFRICAN 61.33606 ml/min 10:45:07 Lab Result : Hemoglobin 13.9 g/dl 10:45:07 Lab Result : Hematocrit 42.6 % 10:48:30 Patient received from Pre/Post Procedure Room to CCL 1 Alert and oriented. Tansferred to table in Supine position. 10:48:34 Signed procedure consent form obtained from patient. 10:48:35 Warm blankets applied, and sonny hugger turned on for patient comfort. 10:48:36 Correct patient and procedure confirmed by team. 10:48:38 ECG and BP/O2 sat monitors applied to patient. 10:48:47 ACC Patient presents with Stable Angina CCS Anginal Class 3--Marked limitation of physical activity, angina occurs with ordinary activity.. 10:49:10 Risk of Mortality: .1 10:49:12 Risk of blood transfusion: .1 10:49:16 Risk of AARON: .1 10:49:20 Alarms reviewed by R. N. 10:49:21 Sharps counted by scrub and verified by R.N. 10:49:30 Lab results completed and on chart. 10:50:15 Stress Test: yes; abnormal APICAL AND LATERAL SEGMENTS 10:50:32 Pre procedure: right dorsailis pedis pulse 2+ Normal; easily identifiable; not easily obliterated 10:50:38 Modified Viktor's test Ulnar < 7 seconds 10:50:57 IV patent on arrival in left hand with 0.9% NaCl at KVO. 10:51:11 Pre-procedure instructions explained to patient. 10:51:12 Pre-op teaching completed and patient verbalized understanding. 10:51:16 Family in waiting room. 10:51:19 Patient NPO since Midnight. 10:51:43 Is the patient allergic to Iodine/contrast media? No. 10:51:46 Was the patient premedicated? N/A 10:51:49 Is patient on blood thinner?Yes 10:51:54 ACC The patient was administered the following blood thiners within the last 24 hours: ACCPlavix 10:52:11 Patient diabetic? Yes. 10:52:13 If diabetic: On Metformin? Yes 10:52:18 If on Metformin: Last Dose? 05/27/2019 10:53:33 Patient not . Patient has had tubal. 10:53:39 Previous problem with sedation/anesthesia? No ? 10:53:43 Snore? Yes 10:53:45 Sleep apnea? No 10:53:46 Deviated septum? No 10:53:47 Opens mouth fully? Yes 10:53:49 Sticks out tongue? Yes 10:53:55 Airway obstruction? Yes ASTHMA 10:53:59 Dentures? No OUT 10:54:19 Right Radial & Right Groin area was prepped with chlora-prep and draped in sterile fashion 10:54:27 Use device set Radial Dx or PCI 10:54:30 ACIST Syringe (67307) opened to sterile field. 10:54:32 Medline Cath Pack ([id number]) opened to sterile field. 10:54:33 Bag Decanter (2002S) opened to sterile field. 10:54:35 ACIST Hand Control (57482) opened to sterile field. 10:54:36 ACIST Manifold (37331) opened to sterile field. 10:54:37 Tegaderm 4 x 4 (1626W) opened to sterile field. 10:54:55 MBrace Wrist Support ([id number]) opened to sterile field. 10:54:58 EMERALD Guide Wire (724-852) opened to sterile field. 10:54:59 SHEATH 6FR RAIN (2870192) opened to sterile field. 10:56:03 Oxygen 2 l/min etCO2 Nasal cannula was administered by Mariya Jimenez RN; used for procedure; Verbal order read back and verified. 10:56:11 Lidocaine 2% 20ml vial added to field was administered by Son Hernandez MD; for local anesthetic; Verbal order read back and verified. 10:56:18 Heparin Flush Bag (1000units/500ml NS) 2 bags added to field was administered by Son Hernandez MD; used for procedure; Verbal order read back and verified. 10:56:44 0.9% NaCl 100 ml/hr I.V. was administered by Mariya Jimenez RN; Per physician; Verbal order read back and verified. 10:56:54 Radial Cocktail (Verapamil 2mg/Nitro 400mcg/Heparin 1500units) 1 syringe I.A. was administered by Son Hernandez MD; for vasodilation; Verbal order read back and verified. 10:56:59 Vital chart was started 10:58:08 Arrival Date: 05/29/2019 12:00:00 AM 10:58:20 Insurance Payor : Private health insurance 10:58:51 Patient Height : 67 inches 10:58:57 Patient Weight : 190 lbs 10:59:01 Admit Source: Other 10:59:19 Diagnostic Cath Status : Elective 10:59:35 Indication : CAD 10:59:40 Indication : Angina 11:00:11 Baseline sample Acquired. 11:00:17 Rhythm: sinus rhythm 11:00:20 Full Disclosure recording started 11:07:31 Zero performed for pressure channel P1 11:08:47 --------ALL STOP TIME OUT------ 11:08:48 Final Timeout: patient, procedure, and site verified with staff and physician. All members of the team are in agreement. 11:08:52 Right Radial & Right Groin site verified by team. 11:08:57 Fire Safety Assessment: A--An alcohol-based skin anteseptic being used preoperatively., C--Open oxygen or nitrous oxide is being used., D--An ESU, laser, or fiber-optic light is being used. 11:09:03 Physical assessment completed. ASA score P 2 - A patient with mild systemic disease as per Son Hernandez MD. 11:09:12 2) 60-89 Mildly reduced kidney function, and other findings (as for stage 1) point to kidney disease. 11:09:18 Maximum allowable contrast dose (3.7 X eGFR X 0.75)172 ml. 11:09:23 Sedation plan: IV Moderate Sedation Medication:Versed, Fentanyl 11:09:47 Versed 2 mg I.V. was administered by Mariya Jimenez RN; for sedation; Verbal order read back and verified. 11:09:55 Fentanyl 100 mcg I.V. was administered by Mariya Jimenez RN; for sedation; Verbal order read back and verified. 11:10:37 Procedure started. 11:11:00 Local anesthetic to right radial artery with Lidocaine 2% by Son Hernandez MD.INITIAL ACCESS ONLY 11:12:07 Versed 2 mg I.V. was administered by Mariya Jimenez RN; for sedation; Verbal order read back and verified. 11:12:07 A 6 Fr Short sheath was inserted into the Right Radial artery 11:12:11 Fentanyl 100 mcg I.V. was administered by Mariya Jimenez RN; for sedation; Verbal order read back and verified. 11:12:45 A DIAGNOSTIC [place] 110cm 5 Fr catheter (327299) was advanced over the wire and used for Procedure. 11:13:18 LV gram done using FERNANDEZ 11:13:25 Injector settings: Ml/sec: 5, Volume: 15, 11:13:52 EF : 50 % 11:14:13 LCA angiography performed. 11:15:35 RCA angiography performed. 11:15:45 Catheter exchanged over wire. 11:16:01 Versed 2 mg I.V. was administered by Mariya Jimenez RN; for sedation; Verbal order read back and verified. 11:16:04 Fentanyl 100 mcg I.V. was administered by Mariya Jimenez RN; for sedation; Verbal order read back and verified. 11:16:13 INFLATOR Merit BasixCompak (ST1091) opened to sterile field. 11:16:15 CHOICE PT Extra Support 182cm wire ([id number]) opened to sterile field. 11:16:17 GUIDE 6FR XBC 3.5 ([id number]) opened to sterile field. 11:17:03 Heparin Bolus 4000 units I.V. was administered by Mariya Jimenez RN; for anticoagulation; verified with dr hernandez Verbal order read back and verified. 11:17:57 GUIDE 6FR AR 1.0 catheter ([id number]) opened to sterile field. 11:18:09 Milton Verrata Plus pressure wire (12754Z) opened to sterile field. 11:18:23 6 Fr AR 1 guide catheter was inserted over the wire 11:19:15 LASER ELCA 0.9 Rx atherectomy catheter (909757) opened to sterile field. 11:20:06 FFR/IFR wire advanced. 11:20:56 Wire advanced across lesion. 11:21:31 mRCA lesion measured at .87 with IFR 11:22:46 Pre PCI Site: [place] mRCA has 70% stenosis. 11:23:55 Place stent Inflation Number: 1 A COBRA RX 3.5 X 24 Stent was prepped and advanced across the Mid RCA . The stent was deployed at 21 RIYA for 0:00 (min:sec) . 11:24:26 Stent catheter was removed intact over wire. 11:24:29 Guide catheter removed. 11:24:51 6 Fr XBC 3.5 guide catheter was inserted over the wire 11:26:48 CHOICE ES 182 wire advanced. 11:26:52 Wire advanced across lesion. 11:27:07 Laser pass to [facility] with Fluence of 80 and Rate of 40. 11:27:49 Versed 2 mg I.V. was administered by Mariya Jimenez RN; for sedation; Verbal order read back and verified. 11:27:52 Fentanyl 100 mcg I.V. was administered by Mariya Jimenez RN; for sedation; Verbal order read back and verified. 11:28:24 LASER REMOVED UNABLE TO CROSS 11:29:48 Inflate balloon Inflation number: 1 A EUPHORA 3.5 x 15 Balloon ([id number]) was prepped and advanced across the Mid CX , then inflated to 15 RIYA for 0:00 (min:sec) . 11:30:06 Inflation number: 2 The EUPHORA 3.5 x 15 Balloon ([id number]) was reinflated across the Mid CX , to 17 RIYA for 0:00 (min:sec) . 11:30:45 Balloon removed over the wire. 11:32:09 Laser pass to [facility] with Fluence of 80 and Rate of 40. 11:34:04 Laser catheter removed. 11:34:07 Laser total pulses delivered: 2800 11:34:11 Laser total treatment time: 1 minutes 10 seconds 11:36:04 Inflation number: 3 The EUPHORA 3.5 x 15 Balloon ([id number]) was reinflated across the Mid CX , to 21 RIYA for 0:00 (min:sec) . 11:36:24 Inflation number: 4 The EUPHORA 3.5 x 15 Balloon ([id number]) was reinflated across the Mid CX , to 21 RIYA for 0:00 (min:sec) . 11:36:47 Balloon removed over the wire. 11:36:58 Wire removed. 11:37:15 CHOICE PT Extra Support 182cm wire ([id number]) opened to sterile field. 11:37:42 CHOICE ES 182 wire advanced. 11:37:55 Wire advanced across LAD lesion. 11:40:12 Place stent Inflation Number: 1 A ELSIE RX 2.25 x 18 stent ([id number]) was prepped and advanced across the Dist LAD . The stent was deployed at 21 RIYA for 0:00 (min:sec) . 11:40:37 Inflation number: 2 The stent balloon was then re-inflated across the Dist LAD to 23 RIYA for 0:00 (min:sec) . 11:40:59 Stent catheter was removed intact over wire. 11:41:01 Wire removed. 11:41:01 Guide catheter removed. 11:41:08 Procedure ended.(Physican Out) 11:41:25 Fluoroscopy time 00.00 minutes. 11:41:38 Dose Area Product 57002 mGy/cm. 11:41:43 Fluoroscopy dose: 1596 mGy 11:41:43 Flurop Dose total: 1596 11:41:58 Contrast amount:Isovue 300 157ml. 11:42:01 Maximum allowable dose exceeded? No. 11:42:02 Sharps counted by scrub and verified by R.N. 11:42:09 [place] band inflated with 15cc of air. 11:42:24 ZEPHYR REGULAR TR BAND (939525) opened to sterile field. 11:42:38 Sheath removed intact; hemostasis achieved with Mechanical Compression to the Right Radial artery. 11:43:50 Post-procedure physical assessment completed. ASA score P 2 - A patient with mild systemic disease as per Son Hernandez MD. 11:43:55 Post procedure rhythm: unchanged. 11:43:58 Estimated blood loss: 10 ml 11:44:00 Post procedure instruction explained to patient.Patient verbalizes understanding. 11:44:01 Patient needs reinforcement of post procedure teaching. 11:45:35 Procedure type changed to Cath procedure, Diagnostic procedure, C, [facility] w/Coronaries, FFR/IVUS, FFR Initial, Sedation Charges, Moderate Sedation up to 30 minutes, PCI procedure, Coronary Stent, Coronary Stent Initial x2, Coronary Atherectomy, Atherectomy w/PTCA Coronary Initial 11:47:26 Procedure and supply charges have been captured, reviewed, submitted and are correct. 11:47:38 Procedure Complication : No complications 11:47:41 Vital chart was stopped 11:47:46 [facility] Findings: MVD- PCI performed (see procedure note) 11:47:56 Operative report dictated upon procedure completion. 11:47:57 See physician's report for complete and final results. 11:48:00 Report given to Pre/Post Procedure Room. 11:48:03 Patient transfered to Pre/Post Procedure Room with Stretcher. 11:48:06 Procedure ended. 11:48:06 Full Disclosure recording stopped 11:48:15 ACT drawn and resulted at 271 seconds. (normal therapeutic range 180-240 seconds). 11:48:29 ACC-PCI Only Patient was given prescriptions, or instructed by Son Hernandez MD to start/continue the following medications upon discharge: Plavix 11:48:35 End room use (Document Last) 11:48:55 End room use (Document Last) 11:49:22 End room use (Document Last) Intervention Summary Intervention Notes Time ActionType Lesion and Equipment Used Action# Pressure Duration Attributes 11:23:55 Place stent Mid RCA COBRA RX 3.5 X 1 21 00:00 24 Stent 11:29:48 Inflate Mid CX EUPHORA 3.5 x 1 15 00:00 balloon 15 Balloon ([id number]) 11:30:06 Reinflate Mid CX EUPHORA 3.5 x 2 17 00:00 balloon 15 Balloon ([id number]) 11:36:04 Reinflate Mid CX EUPHORA 3.5 x 3 21 00:00 balloon 15 Balloon ([id number]) 11:36:24 Reinflate Mid CX EUPHORA 3.5 x 4 21 00:00 balloon 15 Balloon ([id number]) 11:40:12 Place stent Dist LAD ELSIE RX 2.25 x 1 21 00:00 18 stent ([id number]) 11:40:37 Reinflate Dist LAD ELSIE RX 2.25 x 2 23 00:00 stent 18 stent balloon ([id number]) Device Usage Item Name Manufacture Quantity Catalog Number Hospital Part Current Minimal Lot# / Charge Number Stock Stock Serial# Code ACIST Syringe Acist 1 39653 248831 522886 634408 20 (89287) Medical Systems Inc Medline Cath Medline 1 [id number] 317109 23862 585403 5 Pack ([id number]) Bag Decanter Microtek 1 729992 79674 171474 5 () Medical Inc. ACIST Hand Acist 1 00810 177142 551107 030340 5 Control Medical (10707) Systems Inc ACIST Manifold Acist 1 68147 305318 823714 694940 5 (80000) Medical Systems Inc Tegaderm 4 x 4 3M 1 1626W 622430 275603 550666 5 (1626W) MBrace Wrist Advanced 1 140-0250-00 183277 85689 956879 5 Support Vascular (369091350) Dynamics EMERALD Guide Cardinal 1 502-455 540968 374318 047743 5 Wire (502-455) Health SHEATH 6FR Cardinal 1 9118452 457598 8107028 333716 5 RAIN (1184678) Health DIAGNOSTIC Terumo 1 40-5013 308711 510346 893793 5 [place] 110cm 5 Fr catheter (407404) INFLATOR Merit Merit 1 EE0512 574058 719162 078656 15 JagexmiHojoki Medical (EF8457) CHOICE PT Faber 2 [id number] 979328 434888 277196 5 Extra Support Scientific 182cm wire ([id number]) GUIDE 6FR XBC Cardinal 1 [id number] 667227 88629 252249 5 3.5 (83574080) Health GUIDE 6FR AR Medtronic 1 WA5XX64 648504 91455 088385 1 1.0 catheter ([id number]) Milton Milton 1 22885I 845076 339053799 743374 5 Verrata Plus pressure wire (95891R) LASER ELCA 0.9 Binu 1 110-004 607232 781979 142231 5 Rx atherectomy Healthcare catheter (049121) (454111) COBRA RX 3.5 X Celonova 1 026-36-07900 470490 111462470 6785951 4 [id number] 24 stent Biosciences (529-92-96686) EUPHORA 3.5 x Medtronic 1 [id number] 672871 580239 864153 5 [id number] 15 Balloon ([id number]) ELSIE RX 2.25 x Medtronic 1 [id number] 651793 0020983 113311 5 [id number] 18 stent ([id number]) ZEPHYR REGULAR Cardinal 1 933051 121032 9839634 789637 5 ReviverMx (718218) Signature Audit Sullivan Stage Time Signature Unsigned Intra-Procedure 05/29/2019 Gin Ribera 11:48:55 AM RT(R) Intra-Procedure 05/29/2019 Mariya Jimenez RN 11:49:23 AM Intra-Procedure 05/29/2019 Son Hernandez 11:49:44 AM [facility] [address] [place] [address]
[~2019-05-29 08:28] MED LIST changes: -PHENERGAN25 M1 PO
[2019-05-29 09:38] LABS: EOSINOPHILS 4.6 % (0-7); HEMATOCRIT 42.6 % (36.0-48.0); HEMOGLOBIN 13.9 g/dL (12-16); IMMATURE GRANULOCYTES 0.3 % (0-5); LYMPHOCYTES 31.4 % (15-50); MCH 31.5 pg (26.0-34.0); MCHC 32.6 g/dL (31.0-37.0); MCV 96.6 fL (80.0-100.0); MEAN PLATELET VOLUME 10.2 fL (7.4-10.4); MONOCYTES 6.2 % (2-11); NEUTROPHILS 56.5 % (40-80); PLATELET COUNT 297 10x3/uL (130-400); RBC 4.41 10x6/uL (4.00-5.40); RDW 15.6 % (11.5-14.5)
[2019-05-29 09:40] VITALS: BP 175/71; BMI 30.7
[2019-05-29 09:45] LABS: ANION GAP 14.6 mmol/L (8-16); CALCIUM 8.8 mg/dL (8.5-10.1); CARBON DIOXIDE 23.6 mmol/L (21.0-32.0); POTASSIUM - SERUM 4.2 mmol/L (3.5-5.1)
--- NOTE | 2019-05-29 11:56 | NUR ---
PT ARRIVED BY STRETCHER. PLACED ON MONITORS. ASSESSMENT COMPLETED. PT C/O CHEST PAIN. BP 195/91. DR. ANTONIO AT BEDSIDE AND SPOKE WITH PT. NO ORDERS RECEIVED AT THIS TIME. PT HAVING NAUSEA.
--- NOTE | 2019-05-29 12:10 | NUR ---
PT DIPHORETIC. PLACED ON BEDPAN. VOIDED WITHOUT DIFFICULTY. RATES CHEST PAIN 10/10. BURNING PAIN. NOTIFIED TAUTH AND ORDERS RECEIVED.
--- NOTE | 2019-05-29 12:23 | NUR ---
PT GIVE CLONIDINE 0.2MG PO AND MORPHINE 4 MG IVP PER MD ORDERS. PT STILL REPORTS PAIN 10/10 IN CHEST. RIGHT WRIST Z BAND IN PLACE. NO BLEEDING/HEMATOMA NOTED. LEFT ARM/HAND FROM BP CUFF AND DOWN HAS PURPURA NOTED. SWITCHED BP CUFF TO LEFT LEG. PT NOT DIPHORETIC AT THIS TIME AND DOES NOT HAVE NAUSEA, JUST VERY UNCOMFORTABLY FROM THE CHEST PAIN. EKG COMPLETED AND DR. ANTONIO REVIEWED.
--- NOTE | 2019-05-29 12:39 | NUR ---
CALLED [facility] WITH UPDATE ON PT'S STATUS. STILL RATING PAIN 10/10 IN CHEST. HE REQUESTED PT STAY OVERNIGHT FOR OBSERVATION. BP 218/104. HR 87. O2 SAT 97% ON 2LNC. PT ON BEDPAN AGAIN. VOIDED 150CC OF CLEAR YELLOW URINE.
--- NOTE | 2019-05-29 13:01 | NUR ---
BP 241/95 HR 86 CHEST PAIN 04/02. DR. ANTONIO CALLED AND UPDATED ON PT'S STATUS. ORDERS RECEIVED FOR PROCARDIA. O2 SAT 98% ON 2LNC. RESP 18. UPDATED PT ON PLAN OF CARE. CALL LIGHT WITHIN REACH.
--- NOTE | 2019-05-29 13:20 | NUR ---
CALLED AND NOTIFIED PT'S DAD ISSAC LIM [phone]) OF PT STAYING OVERNIGHT FOR OBSERVATION. HE VOICED UNDERSTANDING.
--- NOTE | 2019-05-29 13:30 | NUR ---
PT GIVEN PO PROCARDIA. WILL CONTINUE TO MONITOR. DENIES NAUSEA. RATES PAIN 8/10 AT THIS TIME. REPORTS THAT IT IS IMPROVING SLOWLY. RIGHT WRIST Z BAND IN PLACE. NO BLEEDING/HEMATOMA NOTED. CALL LIGHT WITHIN REACH. PT TOLERATING SIPS OF SODA AT THIS TIME.
--- NOTE | 2019-05-29 14:02 | NUR ---
DR. ANTONIO AT BEDSIDE. UPDATED ON PT'S STATUS. ORDERS RECEIVED. BP 175/72. HR 96.
--- NOTE | 2019-05-29 14:08 | OP ---
PATIENT NAME: EDITH BETANCUR MEDICAL RECORD: [id number] :65 LOCATION:D.CAT ADMISSION DATE: SURGEON: STEPHANIE ANTONIO MD DATE OF OPERATION: 05/29/2019 PROCEDURES: 1. PTCA stent RCA. 2. PTCA stent LAD. 3. Laser atherectomy, PTCA left circumflex. 4. IFR. 5. Left heart catheterization. 6. Selective coronary angiography. 7. Left ventriculogram. INDICATION: Unstable angina and coronary artery disease. PROCEDURE IN DETAIL: After informed consent was obtained and after a detailed description of the risks, benefits as well as alternative therapies, the patient elected to proceed with angiogram and angioplasty. FINDINGS: Left ventriculogram was performed in standard 30-degree FERNANDEZ view, reveals good cardiac wall motion throughout all segments. Overall ejection fraction estimated at 55% to 60%. SELECTIVE CORONARY ANGIOGRAPHY: 1. Left main is with no significant angiographic disease. 2. Left anterior descending has previously placed stents with 95% in-stent restenosis in the mid distal vessel. 3. Left circumflex has previously placed stent proximally with 95% in-stent restenosis. 4. The right coronary artery has a 70% stenosis mid vessel and IFR was abnormal at 0.87. PTCA STENT OF THE RCA: The stent used was a 3.5 x 24 mm Cobra, taken to 21 atmospheres. Result was 0% residual stenosis. PTCA STENT OF THE LAD: The stent used was a 2.25 x 18 mm Jason. Result was 0% residual stenosis. LASER ATHERECTOMY PTCA OF THE LEFT CIRCUMFLEX: A 0.9 laser catheter was used. Multiple passes were made. This was ballooned with a 3.5 balloon. Result was 0% residual. IMPRESSION: Successful PTCA stent of the LAD and RCA and successful laser atherectomy, PTCA of the left circumflex all vessels going from 70% to 95% initial stenosis to 0% residual. TRANSINT:[id number] Voice Confirmation ID: [id number] DOCUMENT ID: [id number] OPERATIVE REPORT [id number] EDITH BETANCUR STEPHANIE ANTONIO MD at 1408 CC: [id number] DICTATION DATE: 05/29/19 1152 AUTO MECHANIC: 05/29/19 [address] [place] [address]
--- NOTE | 2019-05-29 14:42 | NUR ---
BP 134/50. HR 97. REPORTS PAIN 5/10 AT THIS TIME. FAMILY AT BEDSIDE. UPDATED THEM ON PLAN TO ADMIT PT TO ROOM 2115 FOR OVERNIGHT OBS. REPORT CALLED TO JOSE MOSELEY.
--- NOTE | 2019-05-29 15:20 | NUR ---
PT TAKEN DOWN TO ROOM 2114 BY WHEELCHAIR. ASSISTED INTO BED. CALL LIGHT WITHIN REACH. TELEMETRY NOT AVAILABLE AT THIS TIME. GAVE PT STICKER TO RAUL AT MONITOR STATION AND SHE STATES SHE WILL GET HER ONE SOON SHE GETS IT CLEANED. NOTIFIED JOSE MOSELEY OF PT'S ARRIVAL IN ROOM. PT HAS CALL LIGHT WITHIN REACH. NO NEEDS AT THIS TIME. PT HAS BELONGINGS BAG WITH CLOTHING AND CELL PHONE.
--- NOTE | 2019-05-29 15:45 | NUR ---
TRANSFERED FROM RESIDENCY DIRECTOR HOLDING. VS WNL. RIGHT WRISTR STABLE WITH TR BAND INTACT. WILL MONITOR.
[2019-05-29 15:53] VITALS: BP 140/54
[2019-05-29 16:01] VITALS: BP 130/54; Ht 170.2 cm; Wt 89.1 kg
--- NOTE | 2019-05-29 18:45 | NUR ---
RECEIVED BEDSIDE REPORT. PATIENT IS ALERT AND ORIENTED, RESTING COMFORTABLY IN BED. RESPIRATIONS ARE EVEN AND UNLABORED. NO S/S OF DISTRESS. NO C/O PAIN. NEEDS MET. CALL LIGHT WITHIN REACH. WILL CPOC.
--- NOTE | 2019-05-29 19:41 | NUR ---
PATIENT BEGAN COMPLAINING OF CHEST PAIN. ASSESSMENT COMPLETE. EKG, VITAL SIGNS OBTAINED. MORPHINE ADMININSTERED. PATIENT PLACED ON 2L NC. PATIENT STATES SHE IS NO LONGER HAVING CHEST PAIN, BUT WILL CALL [facility] LIGHT IF THE CHEST PAIN RETURNS.
[2019-05-29 20:00] VITALS: BP 147/71
[2019-05-30] VITALS: BP 150/68
[2019-05-30 04:00] VITALS: BP 146/66
[2019-05-30 08:29] VITALS: BP 154/65
--- NOTE | 2019-05-30 08:30 | NUR ---
DR ANTONIO NOTIFIED OF CONT. C/O C/P. NEW ORDERS GIVEN. WILL MONITOR.
--- NOTE | 2019-05-30 09:00 | NUR ---
HAS AMBULATED HALLWAY ON ROOM AIR. 02 SATS DROPED TO 87% AND WHEEZES NOTED ON EXPERATION AND DRY COUGH NOTED. DR. ANTONIO NOTIFED. UP DRAFT ORDERED. WILL MONITOR.
--- NOTE | 2019-05-30 09:54 | NUR ---
Rests in bed without wheezes or c/o pain. States she wears 02 at home while in bed. Will cont to monitor needs.
--- NOTE | 2019-05-30 11:14 | NUR ---
IV AND TELEMETRY DCD. DC PLANS GIVEN. UNDERSTANDING VOICED. ESCORTED TO CAR BY W/C.
--- NOTE | 2019-06-05 10:41 | DS ---
PATIENT:GYPSYDecember :65 MEDICAL RECORD: [id number] DISCHARGE SUMMARY ADMISSION DATE: 05/29/19 DISCHARGE DATE: 05/30/19 DATE OF DISCHARGE: 05/30/2019 DIAGNOSES: 1. Angina. 2. Coronary artery disease. 3. Percutaneous transluminal coronary angioplasty stent this admission. 4. Hypertension. 5. Hyperlipidemia. HOSPITAL COURSE: Mrs. Long underwent PTCA stent on 05/29/2019. She had continued chest pain after the procedure. No EKG changes, chest pain continued for the evening, abated the next morning. She ambulated without any problem, was discharged home, to continue her current medications as she is already on aspirin and Plavix. She will follow up with [facility] in 1 month. TRANSINT:[id number] Voice Confirmation ID: [id number] DOCUMENT ID: [id number] STEPHANIE ANTONIO MD at 1041 CC: [id number] DICTATION DATE: 05/31/19 0836 SPRAY BOOTH OPERATOR: 06/01/19 0246 DEP CLI 05/30/[address] [address]
--- NOTE | 2019-06-10 09:29 | OP ---
PATIENT NAME: EDITH BETANCUR MEDICAL RECORD: [id number] :65 LOCATION:D.CAT ADMISSION DATE: SURGEON: STEPHANIE ANTONIO MD DATE OF OPERATION: 05/29/2019 ADDENDUM She was placed on pravastatin 20 mg q. day after the procedure. TRANSINT:[id number] Voice Confirmation ID: [id number] DOCUMENT ID: [id number] STEPHANIE ANTONIO MD at 0929 CC: [id number] DICTATION DATE: 06/09/19 112 RESEARCH QUALITY ASSURANCE ANALYST: 06/09/19 1212 DEP CLI 05/30/19 [address] [place] [address]
== END 2019-05-30 11:18 ==
LOC: D.CATH 08:28 → D.M2 15:18 → D.CATH 05-30 11:18
PROVIDERS: ATTEND Internal Medicine Interventional Cardiology
DX: I25.110 Atherosclerotic heart disease of native coronary artery with unstable angina pectoris (principal); R94.30 Abnormal result of cardiovascular function study, unspecified

== ENCOUNTER 2019-06-22 17:12 | Emergency (ER) | payer OTHER ==
[~2019-06-22] VITALS: Ht 170.2 cm; Wt 81.6 kg
[2019-06-22 17:37] VITALS: Ht 170.2 cm; Wt 81.6 kg
[2019-06-22 18:03] LABS: HEMATOCRIT 38.6 % (36.0-48.0); HEMOGLOBIN 12.9 g/dL (12-16); MCH 31.7 pg (26.0-34.0); MCHC 33.4 g/dL (31.0-37.0); MCV 94.8 fL (80.0-100.0); MEAN PLATELET VOLUME 10.2 fL (7.4-10.4); PLATELET COUNT 271 10x3/uL (130-400); RBC 4.07 10x6/uL (4.00-5.40); RDW 15.2 % (11.5-14.5); WBC 11.8 10x3/uL (4.8-10.8)
[2019-06-22 18:11] LABS: ANION GAP 15.5 mmol/L (8-16); CALCIUM 8.9 mg/dL (8.5-10.1); CARBON DIOXIDE 24.6 mmol/L (21.0-32.0); POTASSIUM - SERUM 4.1 mmol/L (3.5-5.1)
[2019-06-22 18:17] LABS: BILIRUBIN - TOTAL 0.45 mg/dL (0.2-1.3); PROTEIN - SERUM 7.7 g/dL (6.4-8.2)
[2019-06-22] MEDS ORDERED: PHENERGAN25 M1 PO (20:32)
[2019-06-22 21:00] VITALS: BP 151/71
== END 2019-06-22 21:01 | disposition home or self-care (01) ==
LOC: D.ER 17:12
PROVIDERS: Family Medicine
DX: R04.0 Epistaxis (principal); R11.2 Nausea with vomiting, unspecified; E11.40 Type 2 diabetes mellitus with diabetic neuropathy, unspecified; Z79.4 Long term (current) use of insulin; Z79.84 Long term (current) use of oral hypoglycemic drugs; I10 Essential (primary) hypertension; E07.9 Disorder of thyroid, unspecified; J44.9 Chronic obstructive pulmonary disease, unspecified; Z99.81 Dependence on supplemental oxygen; I25.10 Atherosclerotic heart disease of native coronary artery without angina pectoris; I73.9 Peripheral vascular disease, unspecified; I25.2 Old myocardial infarction

== ENCOUNTER → 2019-07-16 08:08 | Outpatient (CLI) | payer OTHER ==
[~2019-07-16 08:08] MED LIST changes: +PHENERGAN25 M1 PO
[2019-07-16 08:43] LABS: AMYLASE - SERUM 45 U/L (25-115); LIPASE 286 U/L (73-393)
== END | disposition home or self-care (01) ==
LOC: D.NM 08:08
PROVIDERS: ATTEND Internal Medicine Gastroenterology
DX: R11.2 Nausea with vomiting, unspecified (principal); R63.4 Abnormal weight loss

== ENCOUNTER 2019-08-14 14:02 | Emergency (ER) | payer OTHER ==
[~2019-08-14] VITALS: Ht 170.2 cm; Wt 81.8 kg
[2019-08-14 14:06] VITALS: Ht 170.2 cm; Wt 81.8 kg
[2019-08-14] MEDS ORDERED: TORADOL10 MG PO (15:57)
[2019-08-14 16:15] VITALS: BP 168/74
== END 2019-08-14 16:15 | disposition home or self-care (01) ==
LOC: D.ER 14:02
DX: S80.02XA Contusion of left knee, initial encounter (principal); S80.01XA Contusion of right knee, initial encounter; W19.XXXA Unspecified fall, initial encounter; Y93.9 Activity, unspecified; Y92.9 Unspecified place or not applicable; E11.40 Type 2 diabetes mellitus with diabetic neuropathy, unspecified; I10 Essential (primary) hypertension; I25.119 Atherosclerotic heart disease of native coronary artery with unspecified angina pectoris; I73.9 Peripheral vascular disease, unspecified; K21.9 Gastro-esophageal reflux disease without esophagitis; Z72.0 Tobacco use; Z79.4 Long term (current) use of insulin; Z79.84 Long term (current) use of oral hypoglycemic drugs; I25.2 Old myocardial infarction; J44.9 Chronic obstructive pulmonary disease, unspecified; Z99.81 Dependence on supplemental oxygen

== ENCOUNTER 2019-08-21 07:17 | Outpatient (CLI) | payer OTHER ==
[~2019-08-21] VITALS: Ht 170.2 cm; Wt 81.8 kg
--- NOTE | ~2019-08-21 | HEMODYNAMI ---
PATIENT:EDITH BETANCUR E MEDICAL RECORD: [id number] : 65 LOCATION:[facility] ADMISSION DATE: 08/21/19 Generatedon:08/22/20199:59 Patient name: EDITH BETANCUR Patient #: [id number] SSN: [id number] : 1965 Date of study: 08/21/2019 Page: Of Hemodynamic Procedure Report Patient Data Patient Demographics Procedure consent was obtained First Name: DECEMBER Gender: Female Last Name: GYPSY : 1965 Middle Initial: E Age: 53 year(s) Patient #: [id number] Race: Unknown SSN: [id number] Additional ID: [id number] Contact details [address]: [address] [place] [address] State: [place] City: [facility] Zip code: [address] Past Medical History History of disease Date Diagnosis Comments CAD Allergies Allergen Reaction Date Comments Reported Other allergy 11/23/2014 Sulfa, Codeine, Latex, Benzonatate Other allergy 04/15/2019 SULFA, GENZONATE Other allergy 05/29/2019 sulfa Other allergy 08/21/2019 sulfa Admission Admission Data Admission Date: 08/21/2019 Admission Time: 7:17 Arrival Date: 08/21/2019 Arrival Time: 0:00 Admit Source: Other Insurance Payor: Private health insurance Height (in.): 68 BSA: 1.95 (m2) Height (cm.): 172.72 BMI: 27.37 (kg/m2) Weight (lbs.): 180 Weight (kg.): 81.65 Lab Results Lab Result Date: 08/21/2019 Lab Result Time: 0:00 Biochemistry Name Units Result Min Max BUN mg/dl 19 --(----)*- 7 18 Creatinine mg/dl 1.4 --(----)*- 0.6 1.3 eGFR ml/min 42 *-(----)-- 90 120 NONAFRICAN CBC Name Units Result Min Max Hemoglobin g/dl 12 *-(----)-- 13.5 17.5 Procedure Procedure Types Cath Procedure Diagnostic Procedure Sedation Charges Moderate Sedation up to 15 minutes Moderate Sedation up to 30 minutes PCI Procedure Hemochron ACT Test Peripheral Cath Diagnostic Procedure Red Hat Linux Administrator Peripheral Procedures Qwyhi-Ufyswsg-Dxw-Off Peripheral vascular Intervention Angioplasty Angioplasty Tib-Per Initial Stent Stent-Fem/Popw/plasty Procedure Description Procedure Date Procedure Date: 08/21/2019 Procedure Start Time: 10:47 Procedure End Time: 11:19 Procedure Staff Name Function Ya Ramey RT Scrub Son Hernandez MD Performing Physician Alondra Gerardo RT Monitor Maninder Dominguez MD Ordering physician Uziel Lawson RN Nurse Procedure Data Cath Procedure Fluoroscopy Diagnostic fluoroscopy Total fluoroscopy Time: 5.9 time: 5.9 min min Diagnostic fluoroscopy Total fluoroscopy dose: 200 dose: 200 mGy mGy Contrast Material Contrast Material Type Amount (ml) Isovue 300 136 Entry Location Entry Primary Successful Side Size Upsize 1 Upsize Entry Closure Treviño ccessful Closure Location (Fr) (Fr) 2 (Fr) Remarks Device Remarks Femoral Right 5 Fr 6 Fr 6 Fr Exoseal artery Mid-Length Short Estimated blood loss: 10 ml Diagnostic catheters Device Type Used For End Catheter Placement DIAGNOSTIC UF 5Fr Procedure catheter ([id number]) Procedure Complications No complications Procedure Medications Medication Administration Route Dosage 0.9% NaCl I.V. 100 ml/hr Oxygen etCO2 Nasal cannula 2 l/min Heparin Flush Bag added to field 2 bags (1000units/500ml NS) Lidocaine 2% added to field 20 Versed I.V. 2 mg Fentanyl I.V. 100 mcg Fentanyl I.V. 50 mcg Heparin Bolus I.V. 4000 units Fentanyl I.V. 50 mcg Versed I.V. 1 mg Versed I.V. 1 mg Nitroglycerin IC/IA I.A. 1000 mcg Nitroglycerin IC/IA I.A. 1000 mcg Hemodynamics Rest BSA: 1.95 (m2) HGB: 12 (g/dl) O2 Consumption: Estimated: 265.2 (ml/min) O2 Consu mption indexed: Estimated:136 (ml/min/m) Pre Cath Intra NCS Post Cath Vital Signs Time Heart Resp SPO2 etCO2 NIBP (mmHg) Rhythm Pain Sedation Rate (ipm) (%) (mmHg) Status Level (bpm) 10:03:08 66 15 95 37.5 132/73(110) NSR 0 (11) 10(A) , No pain 10:07:22 69 14 95 36 134/66(101) NSR 0 (11) 10(A) , No pain 10:11:32 69 15 95 28.5 125/73(92) NSR 0 (11) 10(A) , No pain 10:15:40 69 19 96 36.7 122/72(98) NSR 0 (11) 10(A) , No pain 10:19:49 69 16 95 36 118/61(94) NSR 0 (11) 10(A) , No pain 10:23:57 68 17 95 26.9 123/63(89) NSR 0 (11) 10(A) , No pain 10:28:07 68 18 95 19.5 114/62(90) NSR 0 (11) 10(A) , No pain 10:32:15 68 17 95 24.7 124/62(90) NSR 0 (11) 10(A) , No pain 10:36:25 68 18 96 30.7 116/62(88) NSR 0 (11) 10(A) , No pain 10:40:33 68 19 96 13.5 118/60(82) NSR 0 (11) 10(A) , No pain 10:44:41 68 18 96 15.7 124/61(83) NSR 0 (11) 10(A) , No pain 10:48:48 71 18 96 39.8 127/68(93) NSR 0 (11) 10(A) , No pain 10:53:00 68 18 96 38.2 129/63(95) NSR 0 (11) 10(A) , No pain 10:57:14 67 18 96 39.7 119/58(81) NSR 0 (11) 9(A) , No pain 11:01:22 70 12 95 39.7 110/66(85) NSR 0 (11) 9(A) , No pain 11:05:30 69 17 95 36 101/57(72) NSR 0 (11) 9(A) , No pain 11:09:32 71 17 94 38.3 121/61(92) NSR 0 (11) 10(A) , No pain 11:13:41 72 17 96 27.7 122/61(88) NSR 0 (11) 10(A) , No pain 11:17:49 74 11 96 39 118/66(91) NSR 0 (11) 10(A) , No pain Medications Time Medication Route Dose Verified Delivered Reason Notes Effectiveness by by 10:01:18 0.9% NaCl I.V. 100 Uziel Uziel Per physician ml/hr Lulu Lawson RN RN 10:01:28 Oxygen etCO2 2 Uziel Uziel for low 02 sats Nasal l/min Lulu Lawson cannula RN RN 10:01:39 Heparin Flush added 2 Uziel Uziel used for Bag to bags Lorjose juan Lawson procedure (1000units/500ml field RN RN NS) 10:01:49 Lidocaine 2% added 20ml Uziel Uziel for local to vial Lorjose juan Lawson anesthetic field RN RN 10:45:36 Versed I.V. 2 mg Uziel Uziel for sedation Lulu Lawson RN RN 10:45:43 Fentanyl I.V. 100 Uziel Uziel for sedation mcg Lulu Lawson RN RN 10:51:08 Fentanyl I.V. 50 Uziel Uziel for sedation mcg Lulu Lawson RN RN 10:54:38 Heparin Bolus I.V. 4000 Uziel Uziel for units Lulu Lawson anticoagulation RN RN 10:54:44 Fentanyl I.V. 50 Uziel Uziel for sedation mcg Lulu Lawson RN RN 10:55:14 Versed I.V. 1 mg Uziel Uziel for sedation Lulu Lawson RN RN 11:00:26 Versed I.V. 1 mg Uziel Uziel for sedation Lulu Lawson RN RN 11:04:50 Nitroglycerin I.A. 1,000 Uziel Son for IC/IA mcg Lulu Hernandez MD vasodilation RN 11:05:29 Nitroglycerin I.A. 1,000 Uziel Son for IC/IA mcg Lulu Hernandez MD vasodilation spout liner Log Time Note 9:44:18 Admit Source: Other 9:44:21 Arrival Date: 08/21/2019 12:00:00 AM 9:44:31 Patient Height : 68 inches 9:44:35 Patient Weight : 180 lbs 9:44:44 Insurance Payor : Private health insurance 9:48:53 Lab Result : eGFR NONAFRICAN 42 ml/min 9:48:53 Lab Result : Hemoglobin 12 g/dl 9:48:53 Lab Result : BUN 19 mg/dl 9:48:53 Lab Result : Creatinine 1.4 mg/dl 9:49:50 Procedure Status Elective Heart Cath (OP). 9:49:54 Uziel Lawson RN sent for patient. Start room use. 9:49:56 Time tracking: Regular hours (M-F 7:00 - 5:00) 9:50:00 Plan of Care:Hemodynamics will remain stable., Cardiac rhythm will jame in stable., Comfort level will be maintained., Respiratory function will remain adequate., Patient/ family verbilizes understanding of procedure., Procedure tolerated without complication., Recovers from procedure without complications.. 9:50:06 Patient received from Pre/Post Procedure Room to CCL 2 Alert and orient ed. Tansferred to table in Supine position. 9:50:08 Signed procedure consent form obtained from patient. 9:50:09 Correct patient and procedure confirmed by team. 9:50:09 Warm blankets applied, and sonny hugger turned on for patient comfort. 9:50:10 ECG and BP/O2 sat monitors applied to patient. 9:50:46 H&P Date Dictated: 08/19/2019 Within 30 days and on chart.. 9:50:49 Pre-procedure instructions explained to patient. 9:50:53 Family in waiting room. 9:50:55 Patient NPO since Midnight. 9:51:15 Patient allergic to Other allergysulfa 9:51:21 Is the patient allergic to Iodine/contrast media? No. 9:51:22 Is patient on blood thinner?Yes 9:51:28 ACC The patient was administered the following blood thiners within the last 24 hours: ACCPlavix 9:59:36 Patient diabetic? Yes. 9:59:38 If diabetic: On Metformin? Yes 9:59:41 If on Metformin: Last Dose? 08/19/2019 9:59:47 Snore? Yes 9:59:48 Sleep apnea? Yes 9:59:54 Airway obstruction? Yes COPD 9:59:58 Dentures? No ? 10:00:05 IV patent on arrival in left forearm with 0.9% NaCl at O. 10:00:17 Lab results completed and on chart. 10:00:20 Stress Test: no; abnormal ? 10:00:26 Bilateral groins area was prepped with chlora-prep and draped in steril e fashion 10:00:31 Sharps counted by scrub and verified by R.N. 10:01:18 0.9% NaCl 100 ml/hr I.V. was administered by Uziel Lawson RN; Per physician; Verbal order read back and verified. 10:01:28 Oxygen 2 l/min etCO2 Nasal cannula was administered by Uziel Lawson RN; for low 02 sats; Verbal order read back and verified. 10:01:39 Heparin Flush Bag (1000units/500ml NS) 2 bags added to field was admini stered by Uziel Lawson RN; used for procedure; Verbal order read back and verified. 10:01:49 Lidocaine 2% 20ml vial added to field was administered by Uziel stevens RN; for local anesthetic; Verbal order read back and verified. 10:01:53 Vital chart was started 10:45:14 Physician arrived 10:45:15 --------ALL STOP TIME OUT------ 10:45:17 Final Timeout: patient, procedure, and site verified with staff and negra lindsay. All members of the team are in agreement. 10:45:20 Bilateral groins site verified by team. 10:45:24 Fire Safety Assessment: A--An alcohol-based skin anteseptic being used preoperatively., C--Open oxygen or nitrous oxide is being used., D--An ESU, laser, or fiber-optic light is being used. 10:45:29 Physical assessment completed. ASA score P 3 - A patient with severe sy stemic disease as per Son Hernandez MD. 10:45:36 Versed 2 mg I.V. was administered by Uziel Lawson RN; for sedation; Verbal order read back and verified. 10:45:43 Fentanyl 100 mcg I.V. was administered by Uziel Lawson RN; for sedat ion; Verbal order read back and verified. 10:46:29 3a) 45-59 Moderately reduced kidney function. 10:46:32 Maximum allowable contrast dose (3.7 X eGFR X 0.75)116 ml. 10:46:36 Sedation plan: IV Moderate Sedation Medication:Versed, Fentanyl 10:46:44 Use device set Femoral Dx 10:46:52 Procedure started. 10:46:53 Full Disclosure recording started 10:47:08 Local anesthetic to right femoral artery with Lidocaine 2% by Son guerra MD.INITIAL ACCESS ONLY 10:47:47 Arterial access obtained using ultrasound guidance. 10:48:01 A 5 Fr sheath was inserted into the Right Femoral artery 10:50:22 Bag Decanter (2002S) opened to sterile field. 10:50:22 ACIST Syringe (86183) opened to sterile field. 10:50:23 Medline Cath Pack ([id number]) opened to sterile field. 10:50:25 ACIST Hand Control (56402) opened to sterile field. 10:50:26 ACIST Manifold (53700) opened to sterile field. 10:50:28 Tegaderm 4 x 4 (1626W) opened to sterile field. 10:50:33 SHEATH 5FR Trim[place] ([id number]) opened to sterile field. 10:50:34 JOANNE Guide Wire (048-539) opened to sterile field. 10:51:08 Fentanyl 50 mcg I.V. was administered by Uziel Lawson RN; for sedati on; Verbal order read back and verified. 10:51:14 A DIAGNOSTIC UF 5Fr catheter ([id number]) was advanced over the wire and used for Procedure. 10:51:46 Abdominal angiogram w/ runoff was performed. 10:51:59 Right leg runoff performed. 10:52:00 Left leg runoff performed. 10:52:03 Catheter removed. 10:54:38 Heparin Bolus 4000 units I.V. was administered by Uziel Lawson RN; f or anticoagulation; Verbal order read back and verified. 10:54:44 Fentanyl 50 mcg I.V. was administered by Uziel Lawson RN; for sedati on; Verbal order read back and verified. 10:54:47 SHEATH 6FR Destination (RSR01) opened to sterile field. 10:54:51 GLIDE WIRE ANGLE 260cm (AZ9563) opened to sterile field. 10:54:52 SHEATH 6FR [place] (RHB514) opened to sterile field. 10:54:53 INFLATOR Merit BasixCompak (UN1556) opened to sterile field. 10:54:54 CHOICE Floppy Straight 300cm guide wire ([id number]) opened to sterile fi eld. 10:55:07 Sheath upsized to a 6 Fr Mid-Length. 10:55:14 Versed 1 mg I.V. was administered by Uziel Lawson RN; for sedation; Verbal order read back and verified. 10:57:51 Inflate balloon Inflation number: 1 A POWERFLEX PRO 6.0 x 100 x 135cm b alloon ([id number]) was prepped and advanced across the Undefined1 9, then inflated to 9 RIYA for 0:05 (min:sec) . 10:58:01 Balloon removed over the wire. 10:58:20 -ADVANC ED 10:59:45 Stent would not cross, going back in with balloon 11:00:20 Inflation number: 1 The POWERFLEX PRO 6.0 x 100 x 135cm balloon ([id number] 0X) was reinflated across the Mid Superficial Femoral, Left , to 13 RIYA for 0:16 (min:sec) . 11:00:26 Versed 1 mg I.V. was administered by Uziel Lawson RN; for sedation; Verbal order read back and verified. 11:00:35 Inflation number: 2 The POWERFLEX PRO 6.0 x 100 x 135cm balloon ([id number] 0X) was reinflated across the Mid Superficial Femoral, Left , to 13 RIYA for 0:10 (min:sec) . 11:01:05 Inflation number: 3 The POWERFLEX PRO 6.0 x 100 x 135cm balloon ([id number] 0X) was reinflated across the Mid Superficial Femoral, Left , to 13 RIYA for 0:11 (min:sec) . 11:01:38 Balloon removed over the wire. 11:02:19 SMART 6 X 150 X 120 stent ([id number]) was deployed across Mid Superficia l Femoral, Left . 11:02:48 Inflation number: 4 The POWERFLEX PRO 6.0 x 100 x 135cm balloon ([id number] 0X) was reinflated across the Mid Superficial Femoral, Left , to 0 RIYA for 0:01 (min:sec) . 11:02:58 Balloon removed over the wire. 11:02:59 Wire removed. 11:04:50 Nitroglycerin IC/IA 1,000 mcg I.A. was administered by Son Hernandez MD ; for vasodilation; Verbal order read back and verified. 11:05:29 Nitroglycerin IC/IA 1,000 mcg I.A. was administered by Son Hernandez MD ; for vasodilation; Verbal order read back and verified. 11:06:00 Inflation number: 5 The POWERFLEX PRO 6.0 x 100 x 135cm balloon ([id number] [id number]) was reinflated across the Mid Superficial Femoral, Left , to 15 RIYA for 0:19 (min:sec) . 11:06:37 Balloon removed over the wire. 11:08:57 Inflate balloon Inflation number: 1 A EUPHORA 2.5 x 15 Balloon ([id number]) was prepped and advanced across the Mid Peroneal, Left 95, then inflated to 0 RIYA for 0:09 (min:sec) . 11:09:06 Inflation number: 2 The EUPHORA 2.5 x 15 Balloon ([id number]) was reinfla mariusz across the Mid Peroneal, Left , to 21 RIYA for 0:05 (min:sec) . 11:09:47 EXOSEAL 6Fr (EX600) opened to sterile field. 11:10:01 Sheath removed intact; hemostasis achieved with Exoseal to the Right Fe moral artery. 11:10:01 Sheath upsized to a 6 Fr Short. 11:12:53 Procedure ended.(Physican Out) 11:13:03 Fluoroscopy time 05.90 minutes. 11:13:06 Fluoroscopy dose: 200 mGy 11:13:06 Flurop Dose total: 200 11:13:11 Dose Area Product 15595 mGy/cm. 11:13:16 Contrast amount:Isovue 300 136ml. 11:13:18 Maximum allowable dose exceeded? Yes. 11:13:19 Sharps counted by scrub and verified by R.N. 11:13:20 Insertion/operative site no bleeding no hematoma. 11:13:23 Post Procedure Pulses reassessed and unchanged 11:13:27 Post-procedure physical assessment completed. ASA score P 3 - A patient with severe systemic disease as per Son Hernandez MD. 11:13:30 Post procedure rhythm: unchanged. 11:13:34 Estimated blood loss: 10 ml 11:13:37 Post procedure instruction explained to patient.Patient verbalizes understanding. 11:15:58 Procedure type changed to Cath procedure, Diagnostic procedure, Sedatio n Charges, Moderate Sedation up to 15 minutes, Moderate Sedation up to 30 minutes, PCI procedure, Hemochron ACT Test, Peripheral Cath Diagnostic Procedure, Red Hat Linux Administrator Peripheral Procedures, Sdkyn-Pofkwlt-Nak-Off, Peripheral vascular Intervention, Angioplasty, Angioplasty Tib-Per Initial, Stent, Stent-Fem/Popw/plasty 11:18:02 Procedure and supply charges have been captured, reviewed, submitted an d are correct. 11:18:07 Procedure Complication : No complications 11:18:12 Vital chart was stopped 11:19:08 AFRO Findings: PVD: GROUT WORKER performed (see procedure notes) 11:19:13 Report given to Pre/Post Procedure Room. 11:19:16 Patient transfered to Pre/Post Procedure Room with Stretcher. 11:19:18 Full Disclosure recording stopped 11:19:18 Procedure ended. 11:19:24 End room use (Document Last) 11:19:43 End room use (Document Last) 11:20:16 End room use (Document Last) 12:01:47 ACT drawn and resulted at 250 seconds. (normal therapeutic range 180-24 0 seconds). Intervention Summary Intervention Notes Time ActionType Lesion and Equipment Action# Pressure Duration Attributes Used 10:57:51 Inflate Undefined1 POWERFLEX 1 9 00:05 balloon PRO 6.0 x 100 x 135cm balloon ([id number]) 11:00:20 Reinflate Mid POWERFLEX 1 13 00:16 balloon Superficial PRO 6.0 x Femoral, 100 x Left 135cm balloon ([id number]) 11:00:35 Reinflate Mid POWERFLEX 2 13 00:10 balloon Superficial PRO 6.0 x Femoral, 100 x Left 135cm balloon ([id number]) 11:01:05 Reinflate Mid POWERFLEX 3 13 00:11 balloon Superficial PRO 6.0 x Femoral, 100 x Left 135cm balloon ([id number]) 11:02:19 Deploy self Mid SMART 6 X 1 expanding Superficial 150 X 120 stent Femoral, stent Left ([id number]) 11:02:48 Reinflate Mid POWERFLEX 4 0 00:02 balloon Superficial PRO 6.0 x Femoral, 100 x Left 135cm balloon ([id number]) 11:06:00 Reinflate Mid POWERFLEX 5 15 00:19 balloon Superficial PRO 6.0 x Femoral, 100 x Left 135cm balloon ([id number]) 11:08:57 Inflate Mid EUPHORA 1 0 00:09 balloon Peroneal, 2.5 x 15 Left Balloon ([id number]) 11:09:06 Reinflate Mid EUPHORA 2 21 00:05 balloon Peroneal, 2.5 x 15 Left Balloon ([id number]) Device Usage Item Name Manufacture Quantity Catalog Hospital Part Current Minima l Lot# / Number Charge Number Stock Stock Serial# Code ACIST Acist 1 05902 221163 801540 756761 20 Syringe Medical (77876) Systems Inc Bag Microtek 1 953275 73055 903110 5 Decanter Medical Inc. () Medline Medline 1 [id number] 988615 45770 329937 5 Cath Pack ([id number]) ACIST Hand Acist 1 55141 191450 435490 489535 5 Control Medical (92077) Systems Inc ACIST Acist 1 91375 044668 989954 942052 5 Manifold Medical (87528) Systems Inc Tegaderm 4 3M 1 1626W 924456 916205 192888 5 x 4 (1626W) SHEATH 5FR Terumo 1 PEJ680 101690 856257 907082 5 Trimont (MTJ062) EMERALD Cardinal 1 502-455 948279 020885 667009 5 Guide Wire Health (502-455) DIAGNOSTIC Cardinal 1 [id number] 004735 864960 864038 10 UF 5Fr Health catheter (704490T0) SHEATH 6FR Terumo 1 RSR01 424252 15671 186473 5 Destination (RSR01) GLIDE WIRE Terumo 1 FM8840 073198 738390 826495 5 ANGLE 260cm (YT5106) SHEATH 6FR Terumo 1 WQJ624 517622 622484 884352 40 [place]imont (CHH212) INFLATOR Merit 1 DA8148 293026 872406 530757 15 Merit Medical BasixCompak (GJ8857) CHOICE [place] 1 [id number] 773954 959549 378326 5 Floppy Scientific Straight 300cm guide wire ([id number]) POWERFLEX Cardinal 1 [id number] 197502 975720 575293 5 PRO 6.0 x Health 100 x 135cm balloon ([id number]) SMART 6 X Cardinal 1 [id number] 430173 432103 244430 0 [id number] 150 X 120 Health stent ([id number]) EUPHORA 2.5 Medtronic 1 [id number] 754951 677123 039376 5 [id number] x 15 Balloon ([id number]) EXOSEAL 6Fr Cardinal 1 EX600 854872 783955 582874 10 (EX600) Health Signature Audit [place] Stage Time Signature Unsigned Intra-Procedure 08/21/2019 Alondra Gerardo 11:19:43 AM RT(R) Intra-Procedure 08/21/2019 Son Hernandez 11:20:16 AM Intra-Procedure 08/21/2019 Uziel Lawson RN 11:20:54 AM Lulu GARCIA 08/22/2019 9:57:26 AM Intra-Procedure 08/22/2019 Uziel 9:58:38 AM Lulu GARCIA Intra-Procedure 08/22/2019 Son Hernandez 9:59:25 AM Signatures Performing Physician : Signature : Son Hernandez MD Date : Time : Monitor : Alondra Gerardo Signature : RT Date : Time : Nurse : Uziel Lawson Signature : RN Date : Time : [place] [address] [address] [place] [address]
[~2019-08-21 07:17] MED LIST changes: +TORADOL10 MG PO
[2019-08-21] MEDS ORDERED: NICOTINE PATCH (07:51)
[2019-08-21] MEDS ORDERED: BASAGLAR K100 UNIT/1 SC (07:51)
[2019-08-21 08:02] VITALS: BP 99/43; Ht 170.2 cm; Wt 81.8 kg
[2019-08-21 08:23] LABS: ANION GAP 13.2 mmol/L (8-16); CALCIUM 8.7 mg/dL (8.5-10.1); CARBON DIOXIDE 23.9 mmol/L (21.0-32.0); CREATININE - SERUM 1.4 mg/dL (0.6-1.3); POTASSIUM - SERUM 4.1 mmol/L (3.5-5.1)
[2019-08-21 09:28] LABS: BASOPHILS 0.8 % (0-2); EOSINOPHILS 4.2 % (0-7); HEMATOCRIT 36.7 % (36.0-48.0); IMMATURE GRANULOCYTES 0.3 % (0-5); LYMPHOCYTES 49.1 % (15-50); MCH 30.1 pg (26.0-34.0); MCHC 32.7 g/dL (31.0-37.0); MEAN PLATELET VOLUME 11.4 fL (7.4-10.4); MONOCYTES 5.9 % (2-11); NEUTROPHILS 39.7 % (40-80); PLATELET COUNT 222 10x3/uL (130-400); RBC 3.99 10x6/uL (4.00-5.40); RDW 13.6 % (11.5-14.5); WBC 10.6 10x3/uL (4.8-10.8)
--- NOTE | 2019-08-21 11:30 | NUR ---
PT RECEIVED VIA STRETCHER FROM CHILDCARE WORKER FOR RECOVERY. PT VERY DROWSY BUT VERBALLY AROUSABLE. PT C/O BACK PAIN AND L LEG PAIN. IV PATENT INFUSING VIA ORDERS. PT PLACED ON CARDIAC MONITORS AND O2 VIA NC AT 2L. R GROIN SOFT, W 6FR EXOCELE. DRESSING CDI NO BLEEDING OR S/S HEMATOMA NOTED. LEG PINK AND WARM, PEDAL PULSES PALPALBE X2 IN R LEG AND X1 IN L LEG WITH DOPPLER. CALL LIGHT IN REACH. PT INSTRUCTED TO KEEP HEAD ON PILLOW AND LEG STRAIGHT SHE VERBALIZED UNDERSTANDING. HR NSR RATE 72, BP 115/53, RR 11, SAT 95.
--- NOTE | 2019-08-21 11:44 | NUR ---
HYDROCODONE 5MG GIVEN PER ORDERS PO FOR REQUEST OF PAIN.
--- NOTE | 2019-08-21 12:00 | NUR ---
PT RESTING, STATES PAIN SOME BETTER BUT NOT GONE. R GROIN SOFT, DRESSING CDI NO S/S HEMATOMA NOTED. HR 72, BP 127/63, RR 13. CALL LIGHT IN REACH.
--- NOTE | 2019-08-21 12:45 | NUR ---
PT VOIDED 200 CC CLEAR YELLOW URINE ON BEDPAN. R GROIN REMAINS SOFT, DRESSING CDI NO S/S HEMATOMA NOTED. VSS. CALL LIGHT IN REACH
--- NOTE | 2019-08-21 13:15 | NUR ---
PT RESTING W/O COMPLAINTS. R GROIN SOFT, DRESSING CDI NO S/S HEMATOMA NOTED. VSS. CALL LIGHT IN REACH
--- NOTE | 2019-08-21 13:49 | NUR ---
R GROIN SOFT, DRESSING CDI NO S/S HEMATOMA NOTED. PT DENIES NEEDS AT THIS TIME. VSS. CALL LIGHT IN REACH
--- NOTE | 2019-08-21 14:18 | NUR ---
PT PLACED ON BEDPAN, VOIDED SMALL AMOUNT. HOB ELEVATED SLIGHTLY. R GROIN REMAINS SOFT, DRESSING CDI NO S/S HEMATOMA NOTED. PT OFFERED SANDWICH TRAY, REFUSES AT THIS TIME. TOLERATING PO FLUIDS. VSS. CALL LIGHT IN REACH
--- NOTE | 2019-08-21 14:52 | NUR ---
DISCHARGE INSTRUCTIONS REVIEWED W PT, SHE VERBALIZED UNDERSTANDING.
--- NOTE | 2019-08-21 15:00 | NUR ---
IV REMOVED W CATH INTACT, MONITORS AND O2 REMOVED AND PT UP TO DRESS FOR DISCHARGE W ASSIST. R GROIN REMAINS FREE OF BLEEDING OR S/S HEMATOMA. 1510 PT DISCHARGED VIA WC TO SISTER WAITING IN PRIVATE VEHICLE. PT HAD ALL BELONGINGS AND DISCHARGE INFORMATION.
--- NOTE | 2019-08-22 12:54 | OP ---
PATIENT NAME: EDITH BETANCUR MEDICAL RECORD: [id number] :65 LOCATION:[facility] ADMISSION DATE: SURGEON: STEPHANIE ANTONIO MD DATE OF OPERATION: 08/21/2019 DATE OF SERVICE: 08/21/2019 PROCEDURES: 1. Stent placement SFA, left. 2. TURN MACHINE OPERATOR SFA, left. 3. TURN MACHINE OPERATOR peroneal, left. 4. Aortofemoral runoff. 5. Abdominal aortography. INDICATION: Claudication, peripheral vascular disease, limb-threatening ischemia of left leg. PROCEDURE: After informed consent was obtained and after detailed explanation of risks, benefits as well as alternative therapies, the patient elected to proceed with angiogram and angioplasty. The right femoral area was prepped and draped in normal sterile fashion. Right femoral artery was cannulated via modified Seldinger technique with placement of a 6-Tajik dougwk-yno-blha sheath. All catheters exchanged through this sheath. FINDINGS: The abdominal aortography was performed. The catheter was pulled down for aortofemoral runoff. Abdominal aortography reveals no significant abdominal aortic disease, no dissection or aneurysm formation. RIGHT LEG: A. Iliac: The common internal and external iliacs have mild irregularities, but no flow-limiting stenosis. B. Femoral system: The common and deep femoral are widely patent. Superficial femoral has a previously placed stent. This is widely patent with no significant restenosis. Juzl-qj-gpvggpek diffuse disease throughout the SFA, but no flow-limiting stenosis. C. Popliteal and infrapopliteal vessels are patent, although with 3-vessel runoff to the foot, although diffusely diseased. LEFT LEG: A. Iliac: The common internal and external iliacs have mild irregularities, but no flow-limiting stenosis. B. Femoral system: The common and deep femoral are widely patent. Superficial femoral has multiple areas of greater than 80% stenosis proximally, then there is a previously placed stent that is widely patent. C. Popliteal and infrapopliteal vessels: The popliteal is patent. The peroneal has a 99% stenosis, otherwise there is 3-vessel runoff to the foot, although mildly diffusely diseased. TURN MACHINE OPERATOR STENT OF THE LEFT LEG: The SFA was addressed with a 6.0 balloon, this yielded a suboptimal result with severe intimal dissection. Stenting was undertaken with a 6 x 150 SMART stent. The peroneal was addressed with a 2.5 coronary balloon. Result was 0% residual throughout. OVERALL IMPRESSION: Successful percutaneous transluminal angioplasty stent of the left superficial femoral artery going from multiple areas of 80% initial OPERATIVE REPORT [id number] SIV E stenosis to 0% residual. TRANSINT:[id number] Voice Confirmation ID: [id number] DOCUMENT ID: [id number] STEPHANIE ANTONIO MD at 1254 CC: [id number] DICTATION DATE: 08/21/19 1116 RUBBER STAMP DIES INSPECTOR: 08/21/19 1547 DEP CLI 08/21/19 [place] [id number] [place] [address]
== END 2019-08-21 15:10 | disposition home or self-care (01) ==
LOC: D.CATH 07:17
PROVIDERS: ATTEND Internal Medicine Interventional Cardiology
DX: I70.212 Atherosclerosis of native arteries of extremities with intermittent claudication, left leg (principal)

== ENCOUNTER 2019-10-14 13:26 | Inpatient (IN) | payer OTHER ==
[~2019-10-14] VITALS: Ht 170.2 cm; Wt 72.7 kg
--- NOTE | ~2019-10-14 | HEMODYNAMI ---
PATIENT:EDITH BETANCUR MEDICAL RECORD: [id number] : 65 LOCATION:[facility] [id number] ADMISSION DATE: 10/14/19 Generatedon:10/17/20199:39 Patient name: EDITH BETANCUR Patient #: [id number] SSN: [id number] : 1965 Date of study: 10/17/2019 Page: Of Hemodynamic Procedure Report Patient Data Patient Demographics Procedure consent was obtained First Name: DECEMBER Gender: Female Last Name: GYPSY : 1965 [facility] Initial: E Age: 53 year(s) Patient #: [id number] Race: Unknown SSN: [id number] Additional ID: [id number] Contact details [address]: [address] [place] [address] State: [place] City: [facility] Zip code: [address] Past Medical History History of disease Date Diagnosis Comments CAD Allergies Allergen Reaction Date Comments Reported Other allergy 11/23/2014 Sulfa, Codeine, Latex, Benzonatate Other allergy 04/15/2019 SULFA, GENZONATE Other allergy 05/29/2019 sulfa Other allergy 08/21/2019 sulfa Iodine 10/17/2019 Sulfa drugs 10/17/2019 Other allergy 10/17/2019 bridger ortez Admission Admission Data Admission Date: 10/14/2019 Admission Time: 16:47 Room #: [id number] Height (in.): 67 BSA: 1.89 (m2) Height (cm.): 170.18 BMI: 26.63 (kg/m2) Weight (lbs.): 170 Weight (kg.): 77.11 Procedure Procedure Types Cath Procedure Peripheral Cath Diagnostic Procedure Lithographers Printer Peripheral Procedures Abd/Extremity Extremities Bilat Lower Extremity Procedure Description Procedure Date Procedure Date: 10/17/2019 Procedure Start Time: 8:57 Procedure Staff Name Function Alberto Mcghee MD Performing Physician Kourtney Best RT Retail Sales Lead Nayely Claros RN Nurse CANDY SUÁREZ RT Scrub Procedure Data Cath Procedure Fluoroscopy Diagnostic fluoroscopy Total fluoroscopy Time: 3.4 time: 3.4 min min Diagnostic fluoroscopy Total fluoroscopy dose: 189 dose: 189 mGy mGy Contrast Material Contrast Material Type Amount (ml) Isovue 300 50 Diagnostic catheters Device Type Used For End Catheter Placement Merit ULTRA BOLUS FLUSH 5Fr 65CM catheter ([id number]) Procedure Medications Medication Administration Route Dosage Versed I.V. 2 mg Fentanyl I.V. 100 mcg Hydralizine I.V. 10 mg Lidocaine 1% added to field 20 Heparin Flush Bag added to field 2 bags (1000units/500ml NS) Versed I.V. 1 mg Fentanyl I.V. 50 mcg Heparin Bolus 3000 units Hemodynamics Rest BSA: 1.89 (m2) O2 Consumption: Estimated: 196.37 (ml/min) O2 Consumption indexed : Estimated:103.9 (ml/min/m) Heart Rate: 88 (bpm) Snapshots Pre Cath Intra NCS Post Cath Vital Signs Time Heart Resp SPO2 etCO2 NIBP (mmHg) Rhythm Pain Sedation Rate (ipm) (%) (mmHg) Status Level (bpm) 8:40:40 90 26 98 34.3 Measuring NSR 0 (11) 10(A) , No pain 8:42:02 91 10 98 32.8 Time NSR 0 (11) 10(A) Exceeded , No pain 8:45:33 88 15 98 32.1 Aborted NSR 0 (11) 10(A) , No pain 8:48:45 89 9 98 34.3 Time NSR 0 (11) 10(A) Exceeded , No pain 8:50:09 89 8 98 34.3 206/103(163) NSR 0 (11) 10(A) , No pain 8:51:50 90 9 98 34.3 206/106(153) NSR 0 (11) 10(A) , No pain 8:56:20 89 10 99 33.6 209/108(152) NSR 0 (11) 10(A) , No pain 9:00:53 89 11 98 35.1 202/106(169) NSR 0 (11) 10(A) , No pain 9:04:29 87 9 96 35 188/96(151) NSR 0 (11) 10(A) , No pain 9:08:52 88 6 98 34.3 187/94(141) NSR 0 (11) 10(A) , No pain 9:13:18 90 9 97 32.8 189/92(138) NSR 0 (11) 10(A) , No pain 9:14:48 91 11 97 34.3 181/97(145) NSR 0 (11) 10(A) , No pain 9:19:47 92 10 97 30.6 Measuring NSR 0 (11) 10(A) , No pain 9:20:16 91 12 97 35.1 195/92(139) NSR 0 (11) 10(A) , No pain 9:24:46 90 6 98 35.8 178/82(132) NSR 0 (11) 10(A) , No pain 9:29:10 91 8 97 32.1 175/85(124) NSR 0 (11) 10(A) , No pain 9:33:30 93 9 97 32.1 182/92(127) NSR 0 (11) 10(A) , No pain 9:37:53 94 15 97 23.9 195/110(146) NSR 0 (11) 10(A) , No pain Medications Time Medication Route Dose Verified Delivered Reason Notes Eff ectiveness by by 9:02:49 Versed I.V. 2 mg Alberto Adler for sedation Taz Claros RN, MD 9:03:01 Fentanyl I.V. 100 Alberto Nayely for sedation mcg Taz Claros RN, MD 9:03:18 Hydralizine I.V. 10 mg Alberto Adler for Taz monaco MD 9:03:34 Lidocaine 1% added 20ml Alberto Dominguez to vial Mcghee Taz montero MD, MD 9:03:49 Heparin Flush added 2 Alberto Dominguez used for Bag to bags Mcghee Mcghee procedure (1000units/500ml field MD ACUNA NS) 9:10:42 Versed I.V. 1 mg Alberto Adler for sedation Taz Claros RN, MD 9:10:52 Fentanyl I.V. 50 Alberto Goody for sedation mcg Taz Claros RN, MD 9:14:42 Heparin Bolus ia 3000 Alberto Dominguez units Taz Mcghee MD, MD Procedure Log Time Note 8:22:16 Patient Height : 67 inches 8:22:20 Patient Weight : 170 lbs 8:22:29 Use device set IR Diagnostic 8:22:31 Tegaderm 4 x 4 (1626W) opened to sterile field. 8:22:32 Sterile Angiographic Pack opened to sterile field. 8:22:33 Bag Decanter (2001S) opened to sterile field. 8:22:34 ACIST Manifold (18175) opened to sterile field. 8:22:35 ACIST Hand Control (59357) opened to sterile field. 8:22:36 ACIST Syringe (93828) opened to sterile field. 8:22:44 DOC .035 wire (G36360) opened to sterile field. 8:23:14 SHEATH 5FR Henderson (XOQ790) opened to sterile field. 8:23:26 PERCUTANEOUS ENTRY 19GA needle opened to sterile field. 8:23:31 8:32:08 Time tracking: Regular hours (M-F 7:00 - 5:00) 8:38:44 Baseline sample Acquired. 8:38:50 Vital chart was started 8:39:44 Plan of Care:Hemodynamics will remain stable., Cardiac rhythm will remain stable., Comfort level will be maintained., Respiratory function will remain adequate., Patient/ family verbilizes understanding of procedure., Procedure tolerated without complication., Recovers from procedure without complications.. 8:39:51 Patient received from Med/Surg to IR Alert and oriented. Tansferred to table in Supine position. 8:39:53 Signed procedure consent form obtained from patient. 8:40:07 ECG and BP/O2 sat monitors applied to patient. 8:40:08 Baseline sample Acquired. 8:40:09 Full Disclosure recording started 8:40:10 8:40:14 H&P Date Dictated: 10/17/2019 Within 30 days and on chart.. 8:40:16 Pre-procedure instructions explained to patient. 8:40:17 Pre-op teaching completed and patient verbalized understanding. 8:40:19 Family in waiting room. 8:40:22 Patient NPO since Midnight. 8:40:27 Patient allergic to Iodine 8:41:02 Patient allergic to Sulfa drugs 8:41:29 Patient allergic to Other allergytessalon pearls 8:41:36 Is the patient allergic to Iodine/contrast media? Yes. 8:41:39 Was the patient premedicated? Yes 8:41:42 Is patient on blood thinner?Yes 8:41:47 ACC The patient was administered the following blood thiners within the last 24 hours: ACCHeparin 8:41:51 Patient diabetic? Yes. 8:42:04 8:42:05 ----Pre-sedation anethsthesia assessment.---- 8:42:08 Previous problem with sedation/anesthesia? No ? 8:42:12 Snore? Yes 8:42:15 Sleep apnea? Yes 8:42:18 Deviated septum? No 8:42:20 Opens mouth fully? Yes 8:42:23 Sticks out tongue? Yes 8:42:49 Airway obstruction? Yes asthma, copd, cad 8:42:54 8:43:01 Pre procedure: right dorsailis pedis pulse Doppler 8:43:07 Pre procedure: right posterior tibial pulse Doppler 8:43:12 Pre procedure: left dorsailis pedis pulse 0-Absent 8:43:17 Pre procedure: left posterior tibial pulse 0-Absent 8:43:28 IV patent on arrival in left forearm with D5/.45%NaCl at KVO. 8:43:35 Right groin area was prepped with chlora-prep and draped in sterile fashion 8:43:38 8:44:01 3a) 45-59 Moderately reduced kidney function. 8:44:32 Maximum allowable contrast dose (3.7 X eGFR X 0.75)152 ml. 8:46:15 Fire Safety Assessment: A--An alcohol-based skin anteseptic being used preoperatively., C--Open oxygen or nitrous oxide is being used. 8:46:23 8:49:42 A Pounce ULTRA BOLUS FLUSH 5Fr 65CM catheter ([id number]) was advanced over the wire and used for . 8:50:42 Baseline sample Acquired. 8:56:26 Physician arrived 8:56:26 --------ALL STOP TIME OUT------ 8:56:27 Final Timeout: patient, procedure, and site verified with staff and physician. All members of the team are in agreement. 8:57:06 Procedure started. 8:57:11 Local anesthetic to right femoral artery with Lidocaine 1% by Alberto Mcghee MD.INITIAL ACCESS ONLY 9:02:49 Versed 2 mg I.V. was administered by Nayely Claros RN; for sedation; Verbal order read back and verified. 9:03:01 Fentanyl 100 mcg I.V. was administered by Nayely Claros RN; for sedation; Verbal order read back and verified. 9:03:18 Hydralizine 10 mg I.V. was administered by Nayely Claros RN; for hypertension; Verbal order read back and verified. 9:03:34 Lidocaine 1% 20ml vial added to field was administered by Alberto Mcghee MD; ; Verbal order read back and verified. 9:03:49 Heparin Flush Bag (1000units/500ml NS) 2 bags added to field was administered by Alberto Mcghee MD; used for procedure; Verbal order read back and verified. 9:07:50 GLIDE WIRE ANGLE 180cm (HO7138) opened to sterile field. 9:07:51 GLIDE WIRE ANGLE 260cm (KB2277) opened to sterile field. 9:08:05 GLIDE CATHETER 4FR Straight 65cm (CG412) opened to sterile field. 9:08:24 GLIDE CATHETER 4FR Straight 100cm (CG413) opened to sterile field. 9:08:34 TORQUE DEVICE PLASTIC .038 ( TD01) opened to sterile field. 9:10:42 Versed 1 mg I.V. was administered by Nayely Claros RN; for sedation; Verbal order read back and verified. 9:10:52 Fentanyl 50 mcg I.V. was administered by Nayely Claros RN; for sedation; Verbal order read back and verified. 9:14:42 Heparin Bolus 3000 units ia was administered by Alberto Mcghee MD; ; Verbal order read back and verified. 9:20:43 4fr cath placed in left iliac to infuse TPA 9:28:44 Procedure ended.(Physican Out) 9:29:13 Fluoroscopy time 03.40 minutes. 9:29:18 Fluoroscopy dose: 189 mGy 9:29:18 Flurop Dose total: 189 9:29:23 Contrast amount:Isovue 300 50ml. 9:30:06 Procedure and supply charges have been captured, reviewed, submitted and are correct. 9:30:14 Report given to ICU. 9:38:50 Patient transfered to ICU with Bed. 9:39:19 Vital chart was stopped Device Usage Item Name Manufacture Quantity Catalog Number Hospital Part [facility] Lot# / Charge Number Stock Stock Serial# Code Tegaderm 4 x 4 3M 1 [id number] 5 (1626W) Sterile Cardinal 1 [id number] 837383 123344 5 Angiographic Health Pack Bag Decanter Microtek 1 [id number] 85781 266606 5 () Medical Inc. ACIST Manifold Acist 1 21098 181062 992301 377136 5 (91219) Medical Systems Inc ACIST Hand Acist 1 92174 068094 853050 020274 5 Control Medical (34445) Systems Inc ACIST Syringe Acist 1 30860 733545 198560 533324 20 (55250) Medical Systems Inc DOC .035 wire [employer] 1 [id number] 887661 914656 5 (Z31169) SHEATH 5FR Terumo 1 QNE062 706288 839991 630754 5 Henderson (DYK605) PERCUTANEOUS [employer] 1 M43769 178154 244452 5 ENTRY 19GA needle Merit ULTRA Merit 1 [id number] 250541 458310 5 BOLUS FLUSH Medical 5Fr 65CM catheter ([id number]) GLIDE WIRE Terumo 1 FF0860 633934 828771 911544 5 ANGLE 180cm (GN5224) GLIDE WIRE Terumo 1 EV2646 030535 345474 360962 5 ANGLE 260cm (GP2775) GLIDE CATHETER Terumo 1 CG412 053017 723177 5 4FR Straight 65cm (CG412) GLIDE CATHETER Terumo 1 CG413 323610 994217 5 4FR Straight 100cm (CG413) TORQUE DEVICE [place] 1 TD01 880532 420006 013502 5 PLASTIC .038 ( Scientific TD01) Signature Audit [place] Stage Time Signature Unsigned Intra-Procedure 10/17/2019 Kourtney Best 9:39:14 AM RT(R) [place] [id number] [place] [address]
--- NOTE | ~2019-10-14 | HEMODYNAMI ---
PATIENT:EDITH BETANCUR MEDICAL RECORD: [id number] : 65 LOCATION:[facility] [address] [place] [facility] [id number] ADMISSION DATE: 10/14/19 Generatedon:10/18/201920:29 Patient name: EDITH BETANCUR Patient #: [id number] SSN: [id number] : 1965 Date of study: 10/18/2019 Page: Of Hemodynamic Procedure Report Patient Data Patient Demographics Procedure consent was obtained First Name: DECEMBER Gender: Female Last Name: GYPSY : 1965 [facility] Initial: E Age: 53 year(s) Patient #: [id number] Race: Unknown SSN: [id number] Additional ID: [id number] Contact details Address: [address] [place] [address] State: [place] City: [facility] Zip code: [address] Past Medical History History of disease Date Diagnosis Comments CAD Allergies Allergen Reaction Date Comments Reported Other allergy 11/23/2014 Sulfa, Codeine, Latex, Benzonatate Other allergy 04/15/2019 SULFA, GENZONATE Other allergy 05/29/2019 sulfa Other allergy 08/21/2019 sulfa Iodine 10/17/2019 Sulfa drugs 10/17/2019 Other allergy 10/17/2019 tessalon pearls Other allergy 10/18/2019 sulfa, tessalon pearls, iv contrast Admission Admission Data Admission Date: 10/14/2019 Admission Time: 16:47 Room #: [id number] Height (in.): 67 BSA: 1.89 (m2) Height (cm.): 170.18 BMI: 26.63 (kg/m2) Weight (lbs.): 170 Weight (kg.): 77.11 Procedure Procedure Types Cath Procedure Peripheral vascular Intervention Thrombolysis/Thrombectomy Thrombolysis Arterial Additional Day Procedure Description Procedure Date Procedure Date: 10/18/2019 Procedure Start Time: 18:45 Procedure Staff Name Function Maninder Dominguez MD Ordering physician Simone Herrera MD Performing Physician CANDY SUÁREZ RT Monitor Mendez Meier RT Travis Claros RN Nurse Procedure Data Cath Procedure Fluoroscopy Diagnostic fluoroscopy Total fluoroscopy Time: time: 11.8 min 11.8 min Diagnostic fluoroscopy Total fluoroscopy dose: 445 dose: 445 mGy mGy Contrast Material Contrast Material Type Amount (ml) Isovue 300 120 Entry Location Entry Primary Successful Side Size Upsize Upsize Entry Closure Succ essful Closure Location (Fr) 1 (Fr) 2 (Fr) Remarks Device Remarks Femoral Right 6 Fr 6 Fr Angio-VIP artery Long Short 6Fr Procedure Medications Medication Administration Route Dosage Versed I.V. 1 mg Fentanyl I.V. 50 mcg Heparin Flush Bag added to field 2 bags (1000units/500ml NS) Lidocaine 1% added to field 20 Versed I.V. 1 mg Fentanyl I.V. 50 mcg Benadryl I.V. 50 mg Heparin Bolus I.V. 5000 units Versed I.V. 1 mg Fentanyl I.V. 50 mcg Versed I.V. 1 mg Fentanyl I.V. 50 mcg Hemodynamics Rest BSA: 1.89 (m2) O2 Consumption: Estimated: 184.68 (ml/min) O2 Consumption indexed : Estimated:97.71 (ml/min/m) Heart Rate: 72 (bpm) Snapshots Pre Cath Intra NCS Post Cath Vital Signs Time Heart Resp SPO2 etCO2 NIBP (mmHg) Rhythm Pain Sedation Rate (ipm) (%) (mmHg) Status Level (bpm) 18:42:18 64 3 98 29 173/84(126) NSR 0 (11) 10(A) , No pain 18:47:17 70 14 98 28.2 Measuring NSR 0 (11) 10(A) , No pain 18:47:31 70 10 98 26 167/87(127) NSR 0 (11) 10(A) , No pain 18:51:51 75 15 94 32.7 170/88(134) NSR 0 (11) 10(A) , No pain 18:55:59 62 5 88 21.5 154/86(138) NSR 0 (11) 8(A) , No pain 19:00:15 60 3 96 34.9 166/86(126) NSR 0 (11) 8(A) , No pain 19:04:37 67 7 97 37.2 161/80(128) NSR 0 (11) 8(A) , No pain 19:08:59 68 7 96 34.9 160/76(111) NSR 0 (11) 8(A) , No pain 19:13:19 65 12 98 34.2 149/74(121) NSR 0 (11) 8(A) , No pain 19:17:35 66 3 97 14.1 146/77(111) NSR 0 (11) 8(A) , No pain 19:21:51 66 8 97 23.7 149/74(123) NSR 0 (11) 8(A) , No pain 19:26:07 65 7 97 26 144/76(96) NSR 0 (11) 8(A) , No pain 19:30:24 64 4 97 17.8 139/74(112) NSR 0 (11) 8(A) , No pain 19:34:35 62 7 98 14.8 140/76(101) NSR 0 (11) 8(A) , No pain 19:38:49 66 6 97 14.8 134/71(118) NSR 0 (11) 8(A) , No pain 19:43:01 69 6 97 23 129/70(100) NSR 0 (11) 8(A) , No pain 19:47:13 76 6 97 21.5 136/68(116) NSR 0 (11) 8(A) , No pain 19:51:27 76 8 96 23.7 135/67(112) NSR 0 (11) 8(A) , No pain 19:55:41 90 7 97 24.5 137/70(110) NSR 0 (11) 8(A) , No pain 19:59:55 67 8 98 17.1 138/68(114) NSR 0 (11) 8(A) , No pain 20:04:05 72 7 98 37.9 159/82(125) NSR 0 (11) 8(A) , No pain 20:08:21 72 7 99 37.9 154/86(109) NSR 0 (11) 8(A) , No pain 20:12:33 73 31 97 34.2 173/103(163) NSR 0 (11) 8(A) , No pain 20:17:32 69 6 97 30.4 Measuring NSR 0 (11) 8(A) , No pain 20:17:50 71 7 96 36.4 193/100(170) NSR 0 (11) 8(A) , No pain 20:22:17 68 8 96 35.6 193/98(122) NSR 0 (11) 8(A) , No pain 20:26:41 99 33.4 191/96(156) NSR 0 (11) 8(A) , No pain Medications Time Medication Route Dose Verified Delivered Reason Notes Effe ctiveness by by 18:47:30 Versed I.V. 1 mg Simone Adler for Harlan Herrera RN sedation 18:47:41 Fentanyl I.V. 50 Simone Nayely for mcg Harlan Herrera RN sedation 18:47:55 Heparin Flush added 2 Simone Nichols used for Bag to bags Javier Herrera MD procedure (1000units/500ml field NS) 18:48:07 Lidocaine 1% added 20ml Simone Nichols for local to vial Javier Herrera MD anesthetic field 18:53:00 Versed I.V. 1 mg Simone Adler for Harlan Herrera RN sedation 18:53:09 Fentanyl I.V. 50 Simone Nayely for mcg Harlan Herrera RN sedation 18:53:21 Benadryl I.V. 50 mg Simone Nayely Per Harlan Herrera RN physician 18:54:51 Heparin Bolus I.V. 5000 Simone Nayely Per units Harlan Herrera RN protocol 19:29:24 Versed I.V. 1 mg Simone Adler for Harlan Herrera RN sedation 19:29:34 Fentanyl I.V. 50 Simone Nayely for mcg Harlan Herrera RN sedation 20:08:32 Versed I.V. 1 mg Simone Nayely for Harlan Herrera RN sedation 20:08:40 Fentanyl I.V. 50 Simone Nayely for mcg Harlan Herrera RN sedation Procedure Log Time Note 17:57:44 Patient Height : 67 inches 17:57:44 Patient Weight : 170 lbs 17:57:55 Use device set IR Diagnostic 17:58:01 Bag Decanter (2002S) opened to sterile field. 17:58:02 Sterile Angiographic Pack opened to sterile field. 17:58:03 Tegaderm 4 x 4 (1626W) opened to sterile field. 18:33:37 Mendez Hardeep RT (R) (CV) sent for patient. Start room use. 18:33:39 Time tracking: Regular hours (M-F 7:00 - 5:00) 18:33:44 Plan of Care:Hemodynamics will remain stable., Cardiac rhythm will remain stable., Comfort level will be maintained., Respiratory function will remain adequate., Patient/ family verbilizes understanding of procedure., Procedure tolerated without complication., Recovers from procedure without complications.. 18:33:50 Patient received from ICU to IR Alert and oriented. Tansferred to table in Supine position. 18:33:52 Signed procedure consent form obtained from patient. 18:33:54 Warm blankets applied, and sonny hugger turned on for patient comfort. 18:33:54 Correct patient and procedure confirmed by team. 18:33:55 ECG and BP/O2 sat monitors applied to patient. 18:33:59 - 18:34:06 H&P Date Dictated: 10/18/2019 Within 30 days and on chart.. 18:34:09 Pre-procedure instructions explained to patient. 18:34:10 Pre-op teaching completed and patient verbalized understanding. 18:34:16 Patient NPO since Midnight. 18:34:46 Patient allergic to Other allergysulfa, bridger ortez, iv contrast 18:34:49 Is the patient allergic to Iodine/contrast media? Yes. 18:34:51 Was the patient premedicated? Yes 18:34:55 Is patient on blood thinner?Yes 18:34:58 Patient diabetic? No. 18:35:11 - 18:35:12 ----Pre-sedation anethsthesia assessment.---- 18:35:16 Previous problem with sedation/anesthesia? No ? 18:35:21 Snore? Yes 18:35:24 Sleep apnea? No 18:35:31 Deviated septum? No 18:35:33 Opens mouth fully? Yes 18:35:36 Sticks out tongue? Yes 18:35:41 Airway obstruction? No ? 18:35:47 Dentures? No ? 18:35:50 - 18:35:58 Pre procedure: right dorsailis pedis pulse Doppler 18:36:06 Pre procedure: right posterior tibial pulse Doppler 18:36:27 Pre procedure: left posterior tibial pulse Doppler 18:36:33 Pre procedure: left dorsailis pedis pulse None 18:36:53 Right groin area was prepped with betadine and draped in sterile fashio n 18:36:54 Alarms reviewed by Dahlia Deluca 18:36:55 Sharps counted by scrub and verified by Loc 18:36:56 - 18:41:10 Vital chart was started 18:44:17 Physician arrived 18:44:23 --------ALL STOP TIME OUT------ 18:44:24 Final Timeout: patient, procedure, and site verified with staff and physician. All members of the team are in agreement. 18:44:29 Right groin site verified by team. 18:44:33 Fire Safety Assessment: A--An alcohol-based skin anteseptic being used preoperatively., C--Open oxygen or nitrous oxide is being used. 18:45:15 Procedure started. 18:45:15 Full Disclosure recording started 18:47:30 Versed 1 mg I.V. was administered by Nayely Claros RN; for sedation; Verbal order read back and verified. 18:47:41 Fentanyl 50 mcg I.V. was administered by Nayely Claros RN; for sedation ; Verbal order read back and verified. 18:47:48 COOK SHEATH 6FR RAABE 70CM ([id number]) opened to sterile field. 18:47:49 DWYER 260 wire ([id number]) opened to sterile field. 18:47:55 Heparin Flush Bag (1000units/500ml NS) 2 bags added to field was administered by Simone Herrera MD; used for procedure; Verbal order read back and verified. 18:48:07 Lidocaine 1% 20ml vial added to field was administered by Simone Herrera MD; for local anesthetic; Verbal order read back and verified. 18:49:42 A 6 Fr Long sheath was inserted into the Right Femoral artery 18:53:00 Versed 1 mg I.V. was administered by Nayely Claros RN; for sedation; Verbal order read back and verified. 18:53:09 Fentanyl 50 mcg I.V. was administered by Nayely Claros RN; for sedation ; Verbal order read back and verified. 18:53:21 Benadryl 50 mg I.V. was administered by Nayely Claros RN; Per physician ; Verbal order read back and verified. 18:53:37 Baseline sample Acquired. 18:54:51 Heparin Bolus 5000 units I.V. was administered by Nayely Claros RN; Per protocol; Verbal order read back and verified. 18:55:01 CXI SUPPORT .035 135 CM STR catheter ([id number]) opened to sterile field. 18:55:01 GLIDE WIRE ANGLE 260cm (QO1773) opened to sterile field. 18:57:51 ROADRUNNER .035 260 glide wire (D20632) opened to sterile field. 18:57:52 TORQUE DEVICE PLASTIC .038 ( TD01) opened to sterile field. 19:02:13 CHOICE PT Extra Support J 300cm guide wire ([id number]) opened to steril e field. 19:02:14 INFLATOR BasixTOUCH (EZ2631) opened to sterile field. 19:02:37 Inflate balloon Inflation number: 1 A NANOCROSS ELITE 3 X 150 ([id number]) was prepped and advanced across the Undefined1 , then inflated. 19:07:18 Inflate balloon Inflation number: 2 A CHOCOLATE BALLOON 4 X 120 ([id number]) was prepped and advanced across the Undefined1 , then inflated. 19:13:29 Inflate balloon Inflation number: 3 A CHOCOLATE 3.5 x 120 x 135 balloon ([id number]) was prepped and advanced across the Undefined1 , then inflated . 19:28:32 Place stent Inflation Number: 4 A ELSIE OTW 3.5 x 38 stent ([id number]) was prepped and advanced across the Undefined1 . The stent was deployed . 19:29:24 Versed 1 mg I.V. was administered by Nayely Claros RN; for sedation; Verbal order read back and verified. 19:29:34 Fentanyl 50 mcg I.V. was administered by Nayely Claros RN; for sedation ; Verbal order read back and verified. 19:40:49 Inflate balloon Inflation number: 5 A NANOCROSS ELITE 5 X 120 ([id number]) was prepped and advanced across the Undefined1 , then inflated . 19:46:14 SUPERA STENT 4.5X80 was deployed across Undefined1 . 20:00:16 SUPERA STENT 5.5X80 was deployed across Undefined2 . 20:00:29 SHEATH 6FR Poth (ULK576) opened to sterile field. 20:00:37 Sheath upsized to a 6 Fr Short. 20:08:32 Versed 1 mg I.V. was administered by Nayely Claros RN; for sedation; Verbal order read back and verified. 20:08:40 Fentanyl 50 mcg I.V. was administered by Nayely Claros RN; for sedation ; Verbal order read back and verified. 20:11:10 Sheath removed intact; hemostasis achieved with Angio-VIP 6Fr to the Right Femoral artery. 20:15:24 Procedure ended.(Physican Out) 20:16:17 Fluoroscopy time 11.80 minutes. 20:16:22 Fluoroscopy dose: 445 mGy 20:16:22 Flurop Dose total: 445 20:16:28 Contrast amount:Isovue 300 120ml. 20:16:29 Sharps counted by scrub and verified by R.N. 20:16:31 Insertion/operative site no bleeding no hematoma. 20:16:38 Post-op/insertion site Right Femoral artery dressed using a 4 x 4 and Tegaderm. 20:16:48 Post procedure instruction explained to patient.Patient verbalizes understanding. 20:16:50 Procedure and supply charges have been captured, reviewed, submitted an d are correct. 20:28:27 Vital chart was stopped 20:28:33 Patient transfered to ICU with Bed. 20:28:35 End room use (Document Last) Intervention Summary Intervention Notes Time ActionType Lesion and Equipment Used Action# Pressure Duratio n Attributes 19:02:37 Inflate Undefined1 NANOCROSS ELITE 3 X 1 0 00:00 balloon 150 ([id number]) 19:07:18 Inflate Undefined1 CHOCOLATE BALLOON 4 2 0 00:00 balloon X 120 ([id number]) 19:13:29 Inflate Undefined1 CHOCOLATE 3.5 x 120 3 0 00:00 balloon x 135 balloon ([id number]) 19:28:32 Place stent Undefined1 ELSIE OTW 3.5 x 38 4 0 00:00 stent ([id number]) 19:40:49 Inflate Undefined1 NANOCROSS ELITE 5 X 5 0 00:00 balloon 120 ([id number]) 19:46:14 Deploy self Undefined1 SUPERA STENT 4.5X80 1 expanding stent 20:00:16 Deploy self Undefined2 SUPERA STENT 5.5X80 1 expanding stent Device Usage Item Name Manufacture Quantity Catalog Number [facility] Minimal Lot# / Charge Number Stock Stock Serial# Code [facility] () Microtek 1 [id number] 34481 9 10231 5 [employer] Sterile Angiographic Cardinal 1 [id number] 428515 9 81316 5 [employer] Tegaderm 4 x 4 3M 1 1626W 289736 676518 9 70248 5 (1626W) COOK SHEATH 6FR Focal [employer]rapeutics 1 D86579 596948 10322 9 39990 1 [id number] RAABE 70CM (J89722) DWYER 260 wire [employer] 1 I31437 167843 87401 9 89386 5 [id number] ([id number]) CXI SUPPORT .035 135 [employer]ocal [employer] 1 H01754 252997 192647 9 41912 5 [id number] CM STR catheter (J91762) GLIDE WIRE ANGLE Terumo 1 OE7271 428796 461524 9 14448 5 260cm (WP6643) ROADRUNNER .035 260 [employer] Medical 1 B95217 067480 332069 9 62318 5 [id number] glide wire (J62135) TORQUE DEVICE [place] 1 TD01 629095 205450 9 71500 5 PLASTIC .038 ( TD01) Scientific CHOICE PT Extra [place] 1 [id number] 394064 202425 9 25170 5 Support J 300cm Scientific guide wire ([id number]) INFLATOR BasixTOUCH Merit 1 VQ1922 083231 284014 9 83796 5 (WN3238) Medical NANOCROSS ELITE 3 X Medtronic 1 [id number] 804400 32947 9 31495 1 150 ([id number]) CHOCOLATE BALLOON 4 Medtronic 1 [id number] 998628 9 41570 1 X 120 TW ([id number]) CHOCOLATE 3.5 x 120 Medtronic 1 [id number] O 136859 510406 9 31333 5 x 135 balloon TW ([id number]) ELSIE OTW 3.5 x 38 Medtronic 1 [id number] 643573 2056770 9 30645 5 [id number] stent ([id number]) NANOCROSS ELITE 5 X Medtronic 1 [id number] 080391 742431 9 47351 1 120 ([id number]) SUPERA STENT 4.5X80 Unknown 1 0 0 [id number] SUPERA STENT 5.5X80 Unknown 1 0 0 SHEATH 6FR Poth Terumo 1 WIF310 699545 434084 9 97457 40 ([id number]) SUPERA STENT 4.5 X80 Unknown 1 0 0 Signature Audit [place] Stage Time Signature Unsigned Intra-Procedure 10/18/2019 CANDY SUÁREZ RT 8:29:17 PM (R) [facility] [address] [place] [address]
[~2019-10-14 13:26] MED LIST changes: +BASAGLAR K100 UNIT/1 SC; +NICOTINE PATCH
[2019-10-14 14:07] LABS: HEMATOCRIT 42.7 % (36.0-48.0); HEMOGLOBIN 13.8 g/dL (12-16); LYMPHOCYTES 33.6 % (15-50); MCH 28.8 pg (26.0-34.0); MCHC 32.3 g/dL (31.0-37.0); MEAN PLATELET VOLUME 10.4 fL (7.4-10.4); NEUTROPHILS 59.9 % (40-80); PLATELET COUNT 201 10x3/uL (130-400); RDW 13.4 % (11.5-14.5); WBC 11.5 10x3/uL (4.8-10.8)
[2019-10-14 14:24] LABS: ANION GAP 14.1 mmol/L (8-16); CALCIUM 8.1 mg/dL (8.5-10.1); CARBON DIOXIDE 23.2 mmol/L (21.0-32.0); CREATININE - SERUM 1.3 mg/dL (0.6-1.3); POTASSIUM - SERUM 4.3 mmol/L (3.5-5.1)
[2019-10-14 14:32] LABS: ALBUMIN 2.9 g/dL (3.4-5.0); BILIRUBIN - TOTAL 0.25 mg/dL (0.2-1.3); MAGNESIUM - SERUM 1.5 mg/dL (1.8-2.4); PROTEIN - SERUM 7.5 g/dL (6.4-8.2); TROPONIN-I 0.058 ng/mL (0.000-0.060)
[2019-10-14 15:33] LABS: BILIRUBIN NEGATIVE (NEGATIVE); GLUCOSE 1000 mg/dL (NEGATIVE); KETONE NEGATIVE (NEGATIVE); NITRITE NEGATIVE (NEGATIVE); RED CELLS - URINE NONE SEEN /hpf (0-5); UROBILINOGEN NORMAL (NORMAL)
[2019-10-14 15:34] LABS: BACTERIA MODERATE /hpf (NEGATIVE); EPITHELIAL CELLS 0-5 /hpf (0-5)
[2019-10-14 17:30] LABS: HEMATOCRIT 39.1 % (36.0-48.0); HEMOGLOBIN 12.7 g/dL (12-16); MCH 28.8 pg (26.0-34.0); MCHC 32.5 g/dL (31.0-37.0); MCV 88.7 fL (80.0-100.0); MEAN PLATELET VOLUME 10.1 fL (7.4-10.4); RBC 4.41 10x6/uL (4.00-5.40); RDW 13.5 % (11.5-14.5); WBC 12.1 10x3/uL (4.8-10.8)
[2019-10-14 17:30] LABS: APTT 29.8 SECONDS (22.8-39.4); INR 1.02 (0.85-1.17); PROTIME 13.4 SECONDS (11.6-15.0)
[2019-10-14 18:24] VITALS: BP 132/72; BMI 26.7
--- NOTE | 2019-10-14 19:00 | NUR ---
BEDSIDE REPORT RECEIVED AND CARE OF PT ASSUMED. PT LYING IN SUPINE POSITION. IV TO LEFT AC PATENT WITH NS INFUSING AT 75 ML/HR...STARTING HEPARIN DRIP NOW.
--- NOTE | 2019-10-14 19:08 | NUR ---
WITNESSED DAY NURSE STARTING HEPARIN DRIP AT 1000 UNITS / HR AFTER GIVING 5000 UNIT BOLUS.
--- NOTE | 2019-10-14 19:15 | NUR ---
GAVE SANDWICH TRAY AND REGULAR SODA PER REQUEST.
[2019-10-14] MEDS ORDERED: VASCEPA1 GM PO (19:20)
[2019-10-14] MEDS ORDERED: DIOVAN40 MG PO (19:21)
[2019-10-14] MEDS ORDERED: ATARAX 25 MG TA25 MG PO (19:21)
--- NOTE | 2019-10-14 19:30 | NUR ---
TELEMETRY PLACED PER ORDER...READING SR AT THIS ASSESSMENT.
[2019-10-14 20:29] VITALS: BP 166/80
[2019-10-14 20:46] LABS: INR 1.16 (0.85-1.17); PROTIME 14.8 SECONDS (11.6-15.0)
[2019-10-14 20:48] LABS: APTT 121.3 SECONDS (22.8-39.4)
--- NOTE | 2019-10-14 21:09 | NUR ---
HS MEDICATIONS GIVEN TO INCLUDE MORPHINE AND ZOFRAN IVP PER REQUEST FOR PAIN AND NAUSEA.
--- NOTE | 2019-10-14 22:17 | NUR ---
APTT 121.3 AT LAST CHECK. CONSULTED WITH BENOIT GIL APN TO FOLLOWING PROTOCAL AND REDUCING RATE ON HEPARIN TO 8 ML/HR SINCE IT HAS NOT BEEN 6 HOURS SINCE IT WAS STARTED. ORDER TO LOWER RATE TO 8 ML/HR AND CONTINUE WITH HEPARIN PROTOCAL. FOWSHEET COMPLETED WITH WITNESS.
[2019-10-15 00:25] VITALS: BP 151/79
[2019-10-15 02:16] LABS: INR 1.11 (0.85-1.17); PROTIME 14.2 SECONDS (11.6-15.0)
[2019-10-15 02:18] LABS: APTT 45.7 SECONDS (22.8-39.4)
--- NOTE | 2019-10-15 02:40 | NUR ---
INCREASED HEPARIN DRIP TO 9 ML/HR PER PROTOCAL. PT'S LLE NOT COOL TO THE TOUCH AT THIS ASSESSMENT AND SHE STATES IT IS FEELING BETTER.
[2019-10-15 05:48] VITALS: BP 144/70
[2019-10-15 08:22] LABS: HEMATOCRIT 38.2 % (36.0-48.0); HEMOGLOBIN 12.3 g/dL (12-16); LYMPHOCYTES 20.9 % (15-50); MCH 28.5 pg (26.0-34.0); MCHC 32.2 g/dL (31.0-37.0); MCV 88.4 fL (80.0-100.0); NEUTROPHILS 76.6 % (40-80); PLATELET COUNT 204 10x3/uL (130-400); RBC 4.32 10x6/uL (4.00-5.40); RDW 13.9 % (11.5-14.5); WBC 10.9 10x3/uL (4.8-10.8)
[2019-10-15 08:31] LABS: INR 1.09 (0.85-1.17); PROTIME 14.1 SECONDS (11.6-15.0)
[2019-10-15 08:32] LABS: APTT 47.6 SECONDS (22.8-39.4)
[2019-10-15 08:46] VITALS: BP 125/59
[2019-10-15 08:52] LABS: CALCIUM 8.8 mg/dL (8.5-10.1); CARBON DIOXIDE 22.8 mmol/L (21.0-32.0); CHLORIDE - SERUM 100 mmol/L (98-107); CKMB 1.8 U/L (0.0-3.6); CREATINE KINASE 45 UL (21-215); CREATININE - SERUM 1.2 mg/dL (0.6-1.3); MAGNESIUM - SERUM 1.5 mg/dL (1.8-2.4); POTASSIUM - SERUM 4.6 mmol/L (3.5-5.1); PRO BNP 4089 pg/mL (0-125); SODIUM 135 mmol/L (136-145); THYROID STIMULATING HORMONE 0.06 uIU/mL (0.36-3.74); UREA NITROGEN 16 mg/dL (7-18); eGFR NON AFRICAN AMERICAN 50 mL/min (90-120)
[2019-10-15 08:55] LABS: CALC OSMOLALITY 279 mosm/kg (275-300); GLUCOSE 263 mg/dL (74-106); TROPONIN-I < 0.017 ng/mL (0.000-0.060)
[2019-10-15 12:29] VITALS: BP 118/61
--- NOTE | 2019-10-15 12:51 | MORECARE ---
CASE MANAGEMENT DISCHARGE SUMMARY PATIENT: EDITH BETANCUR E UNIT: [id number] ADM DATE: 10/14/19 AGE: 53 : 65 SEX: F ROOM/BED: D.2216 AUTHOR: REDDOC PHYSICIAN: REFERRING PHYSICIAN: SELENA AGUERO MD DATE OF SERVICE: 10/15/19 Discharge Plan Patient Name: EDITH BETANCUR Facility: [facility]:[place] : 1965 Planned Disposition: Home Anticipated Discharge Date: Discharge Date: Expected LOS: Initial Reviewer: [email or web address] Initial Review Date: 10/14/2019 Generated: 10/15/19 1:50 pm Comments DCP- Discharge Planning Updated by [email or web address]: Susan Nguyễn on 10/15/19 11:[address] Patient Name: EDITH BETANCUR Admission Status: ER Accout number: [id number] Admission Date: 10-14-2019 : 1965 Admission Diagnosis: Attending: SELENA AGUERO Current LOS: 1 Anticipated DC Date: Planned Disposition: Home Primary Insurance: [employer] PPO Discharge Planning Comments: CM met with patient to complete initial dc planning assessment. CM educated patient on the CM role and verbal consent given by patient to complete assessment. Patient lives at home with her parents & brother where she is independent with her care. At discharge patient plans to return home and feels this is a safe discharge. Her dad will be her owner operator tanker truck driver home. CM discussed availability of home health, rehab services, and medical equipment. She has a cane & walker at home. Patient denied known discharge needs at this time. CM will continue to follow and will assist as needed with dc plans/needs. Instructor Dancing: Susan Nguyễn DCPIA - Discharge Planning Initial Assessment Updated by [email or web address]: Susan Nguyễn on 10/15/19 12:48 pm * Is the patient Alert and Oriented? Yes * How many steps to enter\exit or inside your home? 5 steps * PCP FARO * Pharmacy [facility] [address] * Preadmission Environment Home with Family * ADLs Independent * Equipment Cane Rolling Walker * List name and contact numbers for known caregivers / representatives who currently or will assist patient after discharge: ISSAC (FATHER) [phone] * Verbal permission to speak to the caregivers and representatives has been obtained from the patient. N/A * Community resources currently utilized None * Additional services required to return to the preadmission environment? No * Can the patient safely return to the preadmission environment? Yes * Has this patient been hospitalized within the prior 30 days at any hospital? No Patient Name: GYPSYDecember Page 67560 at 1251 All edits/amendments must be made on the electronic document DICTATION DATE: 10/15/19 1250 PROTEIN SCIENTIST: BROOKLYNN 10/15/19 1250 RPT#: [id number] DC DATE: STATUS: ADM IN [facility] [address] [place] [address] END OF REPORT
[2019-10-15 12:58] VITALS: BMI 26.6
[2019-10-15 14:12] LABS: INR 1.11 (0.85-1.17); PROTIME 14.2 SECONDS (11.6-15.0)
[2019-10-15 14:13] LABS: APTT 44.9 SECONDS (22.8-39.4)
[2019-10-15 17:42] VITALS: BP 134/60
--- NOTE | 2019-10-15 18:25 | NUR ---
ASSESSMENT COMPLETED PER FLOW SHEET FOR TODAY. PATIENT IS WITHOUT DISTRESS. SHE STATES HER FOOT IS FEELING A LITTLE BETTER.SHE DENIES NEEDS AND IS WITHOUT CHNAGE.CONT PLAN OF CARE
[2019-10-15 20:00] VITALS: BP 165/84
--- NOTE | 2019-10-15 20:00 | NUR ---
FSBS 138, NO COVERAGE PER SS. LEFT FOOT COOL TO TOUCH, PT STATES IT IS BETTER THAN BEFORE. PULSE WEAK BUT PRESENT. DENIES OTHER NEEDS. CL IN REACH, WILL CTM
[2019-10-15 20:23] LABS: APTT 45.6 SECONDS (22.8-39.4); INR 1.07 (0.85-1.17); PROTIME 13.9 SECONDS (11.6-15.0)
--- NOTE | 2019-10-15 20:35 | NUR ---
HEPARIN INCREASED TO 12ML/HR, SEE FLOWSHEET
--- NOTE | 2019-10-15 21:45 | NUR ---
LEFT AC IV INFILTRATED. DC'D WITH CATHETER INTACT. RESITED 20G TO LEFT UPPER ARM X1 ATTEMPT.
--- NOTE | 2019-10-15 23:00 | NUR ---
PT STATES PAIN 8/10 IN LEG AND BACK. GAVE MORPHINE AND ZOFRAN ORDERED. DENIES OTHER NEEDS. CL IN REACH, WILL CTM
[2019-10-16] VITALS: BP 110/54
--- NOTE | 2019-10-16 | NUR ---
FSBS 248, INSULIN PER SS. SEE MAR. DENIES OTHER NEEDS. CL IN REACH, WILL CTM
[2019-10-16 02:23] LABS: INR 1.12 (0.85-1.17); PROTIME 14.3 SECONDS (11.6-15.0)
[2019-10-16 02:27] LABS: APTT 55.8 SECONDS (22.8-39.4)
--- NOTE | 2019-10-16 02:38 | NUR ---
HEPARIN INCREASED TO 13ML/HR, SEE FLOWSHEET
[2019-10-16 04:00] VITALS: BP 125/65
--- NOTE | 2019-10-16 05:05 | NUR ---
FSBS 242, COVERAGE PER SS. SEE MAR. DENIES OTHER NEEDS. CL IN REACH, WILL CTM
--- NOTE | 2019-10-16 08:00 | NUR ---
ASSESSMENT PER FLOW SHEET. PATIENT IS WITHOUT DISTRESS.CALL LIGHT IN REACH.
[2019-10-16 08:02] VITALS: BP 132/61
[2019-10-16 08:15] LABS: HEMATOCRIT 34.6 % (36.0-48.0); HEMOGLOBIN 11.1 g/dL (12-16); MCH 28.8 pg (26.0-34.0); MCHC 32.1 g/dL (31.0-37.0); MCV 89.9 fL (80.0-100.0); MEAN PLATELET VOLUME 10.1 fL (7.4-10.4); PLATELET COUNT 182 10x3/uL (130-400); RBC 3.85 10x6/uL (4.00-5.40)
[2019-10-16 08:32] LABS: ANION GAP 12.9 mmol/L (8-16); CALCIUM 8.6 mg/dL (8.5-10.1); CARBON DIOXIDE 25.3 mmol/L (21.0-32.0); CREATININE - SERUM 1.1 mg/dL (0.6-1.3); MAGNESIUM - SERUM 1.7 mg/dL (1.8-2.4); PHOSPHOROUS 3.9 mg/dL (2.5-4.9); POTASSIUM - SERUM 4.2 mmol/L (3.5-5.1)
[2019-10-16 08:34] LABS: WBC 13.8 10x3/uL (4.8-10.8)
[2019-10-16 08:43] LABS: INR 1.1 (0.85-1.17); PROTIME 14.1 SECONDS (11.6-15.0)
[2019-10-16 08:44] LABS: APTT 65.6 SECONDS (22.8-39.4)
[2019-10-16 12:36] VITALS: BP 130/57
[2019-10-16 13:14] LABS: ANISOCYTOSIS OCC; EOSINOPHILS 2 % (0-7); LYMPHOCYTES 45 % (15-50); MONOCYTES 8 % (2-11); NEUTROPHILS 45 % (40-80); PLATELET ESTIMATE NORMAL; ROULEAUX OCC
--- NOTE | 2019-10-16 17:28 | NUR ---
SPOKE WITH DR ALIVIA SMART.. MULTIFOCAL PVC'S.
[2019-10-16 22:42] VITALS: BP 172/91
--- NOTE | 2019-10-16 23:15 | NUR ---
PATIENT RESTING IN BED WITH EYES CLOSED AND NO S/S OF DISTRESS. BED IN LOWEST POSITION AND CALL LIGHT WITHIN REACH. WILL CONTINUE TO MONITOR.
[2019-10-17] VITALS (27 sets, daily range): BP systolic 103–222; BP diastolic 55–105; Ht 170.2 cm; Wt 72.7 kg
[2019-10-17 02:47] LABS: INR 1.07 (0.85-1.17); PROTIME 13.8 SECONDS (11.6-15.0)
[2019-10-17 02:48] LABS: APTT 67.2 SECONDS (22.8-39.4)
[2019-10-17 08:22] LABS: INR 1.01 (0.85-1.17); PROTIME 13.3 SECONDS (11.6-15.0)
[2019-10-17 08:23] LABS: APTT 71.4 SECONDS (22.8-39.4)
--- NOTE | 2019-10-17 08:25 | NUR ---
PT TAKEN TO PROCEDURE PER BED, HEPARIN INFUSING, NPO THIS AM, CONSENTS SIGNED BY ADVERTISING COORDINATOR
[2019-10-17 08:33] LABS: ALBUMIN 3.3 g/dL (3.4-5.0); ANION GAP 16.6 mmol/L (8-16); BILIRUBIN - TOTAL 0.33 mg/dL (0.2-1.3); CALCIUM 9.6 mg/dL (8.5-10.1); CARBON DIOXIDE 23.6 mmol/L (21.0-32.0); CREATININE - SERUM 1.2 mg/dL (0.6-1.3); MAGNESIUM - SERUM 1.9 mg/dL (1.8-2.4); PHOSPHOROUS 3.8 mg/dL (2.5-4.9); PROTEIN - SERUM 8.1 g/dL (6.4-8.2)
[2019-10-17 08:37] LABS: POTASSIUM - SERUM 5.2 mmol/L (3.5-5.1)
[2019-10-17 08:53] LABS: BASOPHILS 0.1 % (0-2); EOSINOPHILS 0 % (0-7); HEMATOCRIT 39.2 % (36.0-48.0); HEMOGLOBIN 12.7 g/dL (12-16); IMMATURE GRANULOCYTES 0.7 % (0-5); LYMPHOCYTES 14.1 % (15-50); MCH 28.6 pg (26.0-34.0); MCHC 32.4 g/dL (31.0-37.0); MCV 88.3 fL (80.0-100.0); MEAN PLATELET VOLUME 10.9 fL (7.4-10.4); MONOCYTES 0.3 % (2-11); NEUTROPHILS 84.8 % (40-80); PLATELET COUNT 230 10x3/uL (130-400); RBC 4.44 10x6/uL (4.00-5.40); RDW 14.2 % (11.5-14.5); WBC 9.8 10x3/uL (4.8-10.8)
[2019-10-17 09:25] LABS: PLT FUNCT.(P2Y12) PLAVIX 277 PRU (194-418)
--- NOTE | 2019-10-17 09:55 | NUR ---
PT ARRIVED TO UNIT AT THIS TIME VIA BED FROM PROCEDURE. HAS SHEATH TO RT GROIN WITH HEPARIN AND TPA INFUSING VIA SHEATH. RT GROIN SITE CDI WITHOUT ANY S/S HEMATOMA OR EDEMA. NOTED PT SBP 190, PER ASBESTOS SURVEYOR, ADMIN SCHEDULED HTN MEDS. WILL CONTINUE PLAN OF CARE.
--- NOTE | 2019-10-17 10:55 | NUR ---
NOTED ORDER FOR RIOS PLACEMENT ALONG WITH PT REQUESTING FOR RIOS. MULTIPLE ATTEMPTS MADE BY TWO NURSES TO PLACE RIOS WITH NO SUCCESS. PT HAS SHEATH TO RT LEG AND UNABLE TO VOID VIA TOILET, WHICH IS WHY PT STATED SHE WANTED A RIOS ALONG WITH ACCURATE I&O. PT CONTINENT VOID TO BEDPAN THEN EXTERNAL RIOS/PURE WICK PLACED; FUNCTIONING PROPERLY. WILL CONTINUE PLAN OF CARE.
--- NOTE | 2019-10-17 12:02 | NUR ---
PT STILL HYPERTENSIVE AFTER REICEVING SCHEDULED MEDS AND PRN PAIN MED. PT STILL C/O PAIN, NEW ORDERS RECIEVED BY DR AGUERO.
--- NOTE | 2019-10-17 14:35 | NUR ---
NO ACUTE DISTRESS NOTED. NO CHANGE. VSS. RT GROIN SITE CDI. PT COMPLIANT AT KEEPING RT LEG STRAIGHT. WILL CONTINUE PLAN OF CARE.
--- NOTE | 2019-10-17 14:51 | NUR ---
Nutrition follow-up: Pt now in ICU 2/2 hyper tension; heparin drip following IR procedure Diet advanced to regular; however, RDN changed diet to consistnet CHO 2/2 pt with diabetes and elevated glucose. Labs reviewed Wt: 1710# RDN following.
[2019-10-17 15:39] LABS: BASOPHILS 0.1 % (0-2); EOSINOPHILS 0 % (0-7); HEMATOCRIT 38.1 % (36.0-48.0); HEMOGLOBIN 12.3 g/dL (12-16); IMMATURE GRANULOCYTES 0.5 % (0-5); LYMPHOCYTES 11.7 % (15-50); MCH 28.7 pg (26.0-34.0); MCHC 32.3 g/dL (31.0-37.0); MONOCYTES 1.7 % (2-11); PLATELET COUNT 224 10x3/uL (130-400); RBC 4.28 10x6/uL (4.00-5.40); RDW 14.4 % (11.5-14.5); WBC 14.6 10x3/uL (4.8-10.8)
--- NOTE | 2019-10-17 15:46 | NUR ---
BP 178/99, PRN CLONIDINE ADMIN PER ORDERS.
[2019-10-17 15:56] LABS: INR 1.08 (0.85-1.17)
[2019-10-17 16:06] LABS: APTT 37.1 SECONDS (22.8-39.4)
--- NOTE | 2019-10-17 16:31 | NUR ---
FREQUENT PAC NOTED, WILL RECHECK MG AND K LEVELS.
[2019-10-17 16:41] LABS: MAGNESIUM - SERUM 2.1 mg/dL (1.8-2.4); POTASSIUM - SERUM 5.1 mmol/L (3.5-5.1)
--- NOTE | 2019-10-17 17:51 | NUR ---
DR JOHNSON PAGED REGARDING ORDER CLARIFICATION.
--- NOTE | 2019-10-17 17:59 | NUR ---
PER DR JOHNSON, CHANGE ORDER FOR HEPARIN GTT TO 500 U/H SET RATE VIA SHEATH. ALSO STATED TO KEEP TPA. IN ADDITION STATED TO OBTAIN CONSENTS FOR TOMORROW FOR PROCEDURE.
--- NOTE | 2019-10-17 19:15 | NUR ---
RECIVED REPORT AT BEDSIDE. PT IS A&OX4 LAYING FLAT. VSS. ASSESSED LOWER EXTREMITE PULSES AND THERE IS NO PULSE FELT OR HEARD VIA DOPPLER ON LEFT FOOT. KENNETH RN VOICED THAT THE ROTARY BAR OPERATOR HAS VOICED HE DOES NOT EXSPECT THERE TO BE A PULSE AT THIS TIME. PT IS TO GO BACK TO OCCUPATIONAL PHYSICIAN TOMORROW. SHE HAS HEPRAIN AND TPA INFUSING INTO RIGHT GROIN. PT VERBALIZED UNDERSTANDING TO LAY STILL AND FLAT. WILL PERFROM FULL ASSESSMENT AND DOCUMENT IN FLOW SHEET. BED IS LOW,SIDE RAILSX2,CALL LIGHT WITHIN REACH. WILL CONTINUE TO MONITOR
--- NOTE | 2019-10-17 19:57 | NUR ---
PT USED CALL LIGHT AND ASKED IF SHE COULD HAVE A SNACK. PROVIDED HER WITH A TURKEY SANDWHICH AND DIET COKE PER REQUEST. PT DOES KNOW THAT SHE WILL BE NPO AFTER MIDNIGHT AND STATED"I WANT TO HAVE SOMETHING BECAUSE I KNOW I CANT IN THE MORNIGN". VSS. NO OTHER NEEDS VOICED. BED IS LOW,SIDE RAISLX2,CALL LIGHT WITHIN REACH.WILL CONITNUE TO MONITOR
--- NOTE | 2019-10-17 20:46 | NUR ---
PT ASKED "MAY I HAVE SOMETHING FOR PAIN NOW?". IT IS TIME FOR DILAUDID ORDERED PRN. WILL DOCUMENT AND ADMINISTER. SHE STATES PAIN IS "10/10 ON MY LEFT KNEE AND LOWER BACK". VSS. NO OTHER NEEDS VOICED OR COMPLAINTS. BED IS LOW,SIDE RAISLX2,CALL LGITH WITHIN REACH. WILL CONTINUE TO MONITOR
[2019-10-17 21:55] LABS: BASOPHILS 0.1 % (0-2); EOSINOPHILS 0 % (0-7); HEMATOCRIT 34.7 % (36.0-48.0); HEMOGLOBIN 11.1 g/dL (12-16); IMMATURE GRANULOCYTES 0.4 % (0-5); LYMPHOCYTES 15.4 % (15-50); MCH 28.8 pg (26.0-34.0); MCV 89.9 fL (80.0-100.0); MONOCYTES 5.6 % (2-11); NEUTROPHILS 78.5 % (40-80); PLATELET COUNT 195 10x3/uL (130-400); RBC 3.86 10x6/uL (4.00-5.40); RDW 14.7 % (11.5-14.5); WBC 16.4 10x3/uL (4.8-10.8)
[2019-10-17 22:03] LABS: INR 1.21 (0.85-1.17); PROTIME 15.3 SECONDS (11.6-15.0)
[2019-10-17 22:04] LABS: APTT 38.4 SECONDS (22.8-39.4)
--- NOTE | 2019-10-17 22:33 | NUR ---
PT IS RESTING IN BED WITH EYES CLOSED. VSS. BED IS LOW,SIDE RAISLX2,CALL LIGHT WITHIN REACH. WILL CONTINUE TO MONITOR
[2019-10-18] VITALS (24 sets, daily range): BP systolic 110–188; BP diastolic 65–101
--- NOTE | 2019-10-18 00:34 | NUR ---
PT USED CALL LIGHT AND ASKED "CAN I HAVE MY PAIN MEDICINE?". IT IS TIME FOR PAIN MEDICATION ORDERED PRN. WILL SCAN IN MAR AND ADMINISTER. PAIN IS "9/10" NUMERIC SCALE. VSS. NO OTHER NEEDS VOICED. BED IS LOW,SIDE RAILSX2,CALL LIGHT WITHIN REACH. WILL CONTINUE TO MONITOR.
--- NOTE | 2019-10-18 02:07 | NUR ---
PT IS RESTING IN BED WITH EYES CLOSED. VSS. BED IS LOW,SIDE RAILSX2,CALL LIGHT WITHIN REACH. WILL CONINTUE TO MONITOR
[2019-10-18 03:54] LABS: BASOPHILS 0.1 % (0-2); EOSINOPHILS 0.1 % (0-7); HEMATOCRIT 34.8 % (36.0-48.0); IMMATURE GRANULOCYTES 0.5 % (0-5); LYMPHOCYTES 25.6 % (15-50); MCH 28.8 pg (26.0-34.0); MCHC 31.6 g/dL (31.0-37.0); MCV 91.1 fL (80.0-100.0); MEAN PLATELET VOLUME 10.1 fL (7.4-10.4); MONOCYTES 5.4 % (2-11); NEUTROPHILS 68.3 % (40-80); PLATELET COUNT 183 10x3/uL (130-400); RBC 3.82 10x6/uL (4.00-5.40); RDW 14.9 % (11.5-14.5); WBC 16.7 10x3/uL (4.8-10.8)
[2019-10-18 04:05] LABS: APTT 38.4 SECONDS (22.8-39.4); INR 1.21 (0.85-1.17); PROTIME 15.3 SECONDS (11.6-15.0)
[2019-10-18 04:09] LABS: ANION GAP 11.7 mmol/L (8-16); CALCIUM 8.8 mg/dL (8.5-10.1); CARBON DIOXIDE 25.9 mmol/L (21.0-32.0); CREATININE - SERUM 1.5 mg/dL (0.6-1.3); POTASSIUM - SERUM 4.6 mmol/L (3.5-5.1)
[2019-10-18 04:10] LABS: PHOSPHOROUS 5.7 mg/dL (2.5-4.9)
--- NOTE | 2019-10-18 04:57 | NUR ---
PT USED CALL LIGHT TO ASK"MAY I HAVE MY PAIN MEDICINE NOW?". IT IS TIME FOR PRN DILAUDID. VSS. NO OTHER NEEDS VOICED. WILL SCAN AND ADMINISTER PER ORDER. BED IS LOW,SIDE RAISLX2,CALL LIGHT WITHIN REACH. WILL CONTINUE TO MONITOR
--- NOTE | 2019-10-18 07:00 | NUR ---
RECEIVED BEDSIDE REPORT AND ASSUMED CARE OF PATIENT. PATEINT ALERT AND ORIENTED X 4, C/0 PAIN TO TOP OF LEFT FOOT AND LOW BACK 8/10. RIGHT GROIN SHEATH X 2 WITH DRESSINGS C/D/I, INFUSING TPA AT 1 MG/HR (20 ML/HR) AND HEPARIN AT 500 UNITS/HR, IV TO LEFT HAND 20 INFUSING NS AT 100 ML/HR. IV TO LEFT A/C 20 NOTED TO HAVE BLOODY DRAINAGE TO DRESSING. BBS - CLEAR AND EQUAL, SPO2- 94% ON RA. LEFT FOOT DP AND PT PULSES ABSENT AND NO DOPPLER FLOW NOTED BY DOPPLER, ABLE TO PALPATE A POPITEAL PULSE +1. LEFT FOOT COOL TO TOUCH AND CAP REFILL < 3 SEC. CM - SR WITH PAC'S NOTED. VSS. HEAD TO TOE ASSESSMENT COMPLETED.
[2019-10-18 07:49] LABS: BASOPHILS 0.1 % (0-2); EOSINOPHILS 0.3 % (0-7); HEMATOCRIT 35.6 % (36.0-48.0); HEMOGLOBIN 11.2 g/dL (12-16); IMMATURE GRANULOCYTES 0.5 % (0-5); LYMPHOCYTES 30.1 % (15-50); MCH 28.6 pg (26.0-34.0); MCHC 31.5 g/dL (31.0-37.0); MEAN PLATELET VOLUME 9.9 fL (7.4-10.4); MONOCYTES 5.1 % (2-11); NEUTROPHILS 63.9 % (40-80); PLATELET COUNT 181 10x3/uL (130-400); RBC 3.91 10x6/uL (4.00-5.40); RDW 14.8 % (11.5-14.5); WBC 17.4 10x3/uL (4.8-10.8)
--- NOTE | 2019-10-18 07:55 | NUR ---
LAB AT ROOM TO DRAW LABS, FSBS - 132 MG/DL, NO INSULIN PER SS.
[2019-10-18 08:00] LABS: APTT 36.1 SECONDS (22.8-39.4); INR 1.21 (0.85-1.17); PROTIME 15.2 SECONDS (11.6-15.0)
--- NOTE | 2019-10-18 08:24 | NUR ---
LEFT AC 20 GA IV D/C'D. DIRECT PRESSURE HELD AND DRESSED WITH 2X2 AND TAPE. VSS. PATIENT RESTING QUIETLY.
--- NOTE | 2019-10-18 09:33 | NUR ---
Nutrition follow-up: Diet: ADA consistent CHO with po intake 100% of most meals NPO for procedure today Labs reviewed PO Intake good at this time RDN following.
[2019-10-18 14:38] LABS: BASOPHILS 0.1 % (0-2); EOSINOPHILS 1.1 % (0-7); HEMATOCRIT 34.6 % (36.0-48.0); IMMATURE GRANULOCYTES 0.5 % (0-5); LYMPHOCYTES 37.4 % (15-50); MCH 28.9 pg (26.0-34.0); MCHC 31.8 g/dL (31.0-37.0); MCV 91.1 fL (80.0-100.0); MEAN PLATELET VOLUME 10.1 fL (7.4-10.4); MONOCYTES 4.1 % (2-11); NEUTROPHILS 56.8 % (40-80); PLATELET COUNT 161 10x3/uL (130-400); RDW 14.9 % (11.5-14.5); WBC 17.1 10x3/uL (4.8-10.8)
[2019-10-18 14:51] LABS: APTT 36.3 SECONDS (22.8-39.4); INR 1.22 (0.85-1.17); PROTIME 15.3 SECONDS (11.6-15.0)
--- NOTE | 2019-10-18 19:22 | NUR ---
1115 REMAINS NPO FOR PROCEEDURE INI RADIOLOGY
--- NOTE | 2019-10-18 19:23 | NUR ---
1300 AWAKE ON THE PHONE WITHOUT COMPLAINTS
--- NOTE | 2019-10-18 19:23 | NUR ---
1500 SMALL AREA OF BLOODY DRAINAGE ON DRESSING TO RIGHT GROIN
--- NOTE | 2019-10-18 19:24 | NUR ---
1700 CONTINUES NPO FOR PROCEEDURE
--- NOTE | 2019-10-18 19:25 | NUR ---
1815 TAKEN TO RADIOLOGY PER IR STAFF FOR PROCEEDURE UPDATE GIVEN ON ABSENT L PP
--- NOTE | 2019-10-18 20:36 | NUR ---
REC'D PATIENT BACK FROM IR. LAYING FLAT. RIGHT GROIN DRESSING CDI. NO HARDNESS. NO PEDAL PULSE TO LEFT FOOT ON DOPPLER BUT HEARD DOPPLER PULSE TO DORSALIS LEFT FOOT. FOOT WARM TO TOUCH. BREATHING ROOM AIR. STARTED BACK NS PER ORDERS. NO TPA OR HEPARIN AT THIS TIME. DR. TONY AT BEDSIDE. CALL LIGHT IN REACH
[2019-10-18 20:45] LABS: BASOPHILS 0.1 % (0-2); HEMATOCRIT 37.5 % (36.0-48.0); HEMOGLOBIN 11.7 g/dL (12-16); IMMATURE GRANULOCYTES 0.7 % (0-5); MCH 28.7 pg (26.0-34.0); MCHC 31.2 g/dL (31.0-37.0); MCV 91.9 fL (80.0-100.0); MEAN PLATELET VOLUME 9.9 fL (7.4-10.4); MONOCYTES 5.1 % (2-11); NEUTROPHILS 53.1 % (40-80); PLATELET COUNT 168 10x3/uL (130-400); RBC 4.08 10x6/uL (4.00-5.40); WBC 17.8 10x3/uL (4.8-10.8)
[2019-10-18 20:54] LABS: INR 1.37 (0.85-1.17); PROTIME 16.8 SECONDS (11.6-15.0)
--- NOTE | 2019-10-18 21:00 | NUR ---
APTT RESULTS OF 109.[address] MARSHALL. NEW ORDER TO WAIT TO START HEPARIN GTT UNTIL 2300 AND START AT 900 UNITS/HR. RECHECK AT 0200.
[2019-10-18 21:08] LABS: APTT 109.6 SECONDS (22.8-39.4)
--- NOTE | 2019-10-18 21:30 | NUR ---
REC'D LAB RESULT WITH APTT- 109.6. CALLED DR. MARSHALL, RADIOLOGIST ADVERTISING ASSOCIATE, NEW ORDER TO HOLD ON STARTING HEPARIN GTT FROM 2200 TO 2300 AND TO START GTT AT 900 UNIT/HR INSTEAD OF THE PROTOCOL 1000 UNITS/HR
--- NOTE | 2019-10-18 21:53 | NUR ---
PT FAMILY CALLED, PASSWORD PROVIDED, UPDATE GIVEN AND PT NOTIFIED PER REQUEST.
--- NOTE | 2019-10-18 23:00 | NUR ---
PATIENT REMAINS FLAT AT THIS TIME. PEDAL PULSE WITH DOPPLER HEARD TO LEFT FOOT. CONT TO BE WARM. DRESSING TO RIGHT GROIN CDI. PEDAL PULSES PRESENT TO RIGHT FOOT ALSO. STARTED HEPARIN GTT AT 900 UNITS/HR. NOTIFIED LAB ABOUT MORNING LABS WILL BE DUE AT [address] MARSHALL
--- NOTE | 2019-10-18 23:00 | NUR ---
HEPARIN GTT STARTED PER ORDERS. PEDAL PULSES PRESENT BLAYNE WITH DOPPLER. RIGHT GROIN DRESSING CDI.
[2019-10-19] VITALS (11 sets, daily range): BP systolic 106–192; BP diastolic 54–90
[2019-10-19 02:18] LABS: BASOPHILS 0.1 % (0-2); EOSINOPHILS 1.8 % (0-7); HEMATOCRIT 35.1 % (36.0-48.0); HEMOGLOBIN 10.9 g/dL (12-16); IMMATURE GRANULOCYTES 0.5 % (0-5); LYMPHOCYTES 40.7 % (15-50); MCH 28.5 pg (26.0-34.0); MCHC 31.1 g/dL (31.0-37.0); MCV 91.9 fL (80.0-100.0); MEAN PLATELET VOLUME 10.2 fL (7.4-10.4); MONOCYTES 4.5 % (2-11); NEUTROPHILS 52.4 % (40-80); PLATELET COUNT 166 10x3/uL (130-400); RBC 3.82 10x6/uL (4.00-5.40); RDW 15.1 % (11.5-14.5); WBC 14.5 10x3/uL (4.8-10.8)
[2019-10-19 02:26] LABS: INR 1.23 (0.85-1.17); PROTIME 15.4 SECONDS (11.6-15.0)
[2019-10-19 02:28] LABS: APTT 45.7 SECONDS (22.8-39.4)
[2019-10-19 08:45] LABS: BASOPHILS 0.2 % (0-2); EOSINOPHILS 1.9 % (0-7); HEMATOCRIT 36.2 % (36.0-48.0); HEMOGLOBIN 11.3 g/dL (12-16); IMMATURE GRANULOCYTES 0.4 % (0-5); LYMPHOCYTES 47.1 % (15-50); MCH 28.8 pg (26.0-34.0); MCHC 31.2 g/dL (31.0-37.0); MCV 92.1 fL (80.0-100.0); MONOCYTES 4.9 % (2-11); NEUTROPHILS 45.5 % (40-80); PLATELET COUNT 149 10x3/uL (130-400); RBC 3.93 10x6/uL (4.00-5.40); RDW 15.1 % (11.5-14.5); WBC 14.4 10x3/uL (4.8-10.8)
[2019-10-19 08:59] LABS: ANION GAP 10.9 mmol/L (8-16); CALCIUM 8.6 mg/dL (8.5-10.1); CARBON DIOXIDE 27.2 mmol/L (21.0-32.0); CREATININE - SERUM 1.3 mg/dL (0.6-1.3); MAGNESIUM - SERUM 1.9 mg/dL (1.8-2.4); POTASSIUM - SERUM 4.1 mmol/L (3.5-5.1)
[2019-10-19 09:02] LABS: PHOSPHOROUS 4.2 mg/dL (2.5-4.9)
[2019-10-19 09:05] LABS: INR 1.17 (0.85-1.17); PROTIME 14.8 SECONDS (11.6-15.0)
[2019-10-19 09:06] LABS: APTT 56.4 SECONDS (22.8-39.4)
--- NOTE | 2019-10-19 09:20 | NUR ---
pedal pulses palp. warm feet and pink color
--- NOTE | 2019-10-19 10:24 | NUR ---
SPOKE WITH DR AGUERO. NEW ORDERS RECEIVED
--- NOTE | 2019-10-19 10:25 | NUR ---
DR MARSHALL AT BEDSIDE. TO BE SWITCHED OVER TO PO MEDS AND TURN OFF HEPARIN DRIP
--- NOTE | 2019-10-19 11:09 | NUR ---
PATIENT STATES PAIN IN FOOT. EDUCATED ON REPERFUSION AND THE SYMPTOMS
--- NOTE | 2019-10-19 13:29 | NUR ---
report given to kaity hogue
--- NOTE | 2019-10-19 13:52 | NUR ---
NOTED PT TO TRANSFER TO ROOM 2213, REPORT CALLED TO RECIEVING NURSE. WILL TRANSFER PT SHORTLY.
[2019-10-19 13:58] LABS: BASOPHILS 0.2 % (0-2); EOSINOPHILS 2.5 % (0-7); HEMATOCRIT 35.3 % (36.0-48.0); HEMOGLOBIN 10.9 g/dL (12-16); IMMATURE GRANULOCYTES 0.4 % (0-5); LYMPHOCYTES 36.5 % (15-50); MCH 28.8 pg (26.0-34.0); MCHC 30.9 g/dL (31.0-37.0); MCV 93.1 fL (80.0-100.0); MEAN PLATELET VOLUME 10.1 fL (7.4-10.4); MONOCYTES 6.5 % (2-11); NEUTROPHILS 53.9 % (40-80); PLATELET COUNT 153 10x3/uL (130-400); RBC 3.79 10x6/uL (4.00-5.40); RDW 15.3 % (11.5-14.5); WBC 11.6 10x3/uL (4.8-10.8)
[2019-10-19 14:15] LABS: INR 1.11 (0.85-1.17); PROTIME 14.3 SECONDS (11.6-15.0)
[2019-10-19 14:19] LABS: APTT 29.7 SECONDS (22.8-39.4)
--- NOTE | 2019-10-19 14:44 | NUR ---
PT TRANSFERRED TO ROOM 2213 AT THIS TIME VIA WHEELCHAIR VIA STAND BY ASSIST. RT GROIN SITE CDI WIHT NO S/S HEMATOMA. BOTH FEET WARM TO TOUCH WITH PALPABLE PULSE AND FOOT IS PINK IN COLOR. NO ACUTE DISTRESS NOTED. NO FURTHER ACTIONS.
--- NOTE | 2019-10-19 19:44 | NUR ---
PATIENT RESTING IN BED WITH NO S/S OF DISTRESS. PATIENT WENT TO TO VOID AND IS STEADY. PATIENT DENIES OTHER NEEDS AT THIS TIME. ENCOURAGED TO CALL IF SHE HAS NEEDS. WILL CONTINUE TO MONITOR.
[2019-10-19 19:46] LABS: BASOPHILS 0.2 % (0-2); EOSINOPHILS 2.2 % (0-7); HEMATOCRIT 37.1 % (36.0-48.0); HEMOGLOBIN 11.6 g/dL (12-16); IMMATURE GRANULOCYTES 0.6 % (0-5); LYMPHOCYTES 35.4 % (15-50); MCH 28.6 pg (26.0-34.0); MCHC 31.3 g/dL (31.0-37.0); MCV 91.6 fL (80.0-100.0); MEAN PLATELET VOLUME 9.7 fL (7.4-10.4); MONOCYTES 6.3 % (2-11); NEUTROPHILS 55.3 % (40-80); PLATELET COUNT 163 10x3/uL (130-400); RBC 4.05 10x6/uL (4.00-5.40); RDW 14.9 % (11.5-14.5); WBC 11.6 10x3/uL (4.8-10.8)
[2019-10-19 20:21] LABS: APTT 28.2 SECONDS (22.8-39.4)
[2019-10-19 20:22] LABS: INR 1.04 (0.85-1.17); PROTIME 13.6 SECONDS (11.6-15.0)
[2019-10-20 00:13] VITALS: BP 116/42
[2019-10-20 04:20] VITALS: BP 107/49
[2019-10-20 04:39] LABS: HEMATOCRIT 35.5 % (36.0-48.0); MCH 28.4 pg (26.0-34.0); MCV 91.7 fL (80.0-100.0); MEAN PLATELET VOLUME 10.6 fL (7.4-10.4); RBC 3.87 10x6/uL (4.00-5.40); RDW 14.8 % (11.5-14.5); WBC 12.3 10x3/uL (4.8-10.8)
[2019-10-20 04:57] LABS: APTT 28.4 SECONDS (22.8-39.4); INR 1.07 (0.85-1.17); PROTIME 13.9 SECONDS (11.6-15.0)
[2019-10-20 05:01] LABS: ANION GAP 12.4 mmol/L (8-16); CALCIUM 8.7 mg/dL (8.5-10.1); CREATININE - SERUM 1.1 mg/dL (0.6-1.3)
[2019-10-20 05:04] LABS: POTASSIUM - SERUM 3.4 mmol/L (3.5-5.1)
--- NOTE | 2019-10-20 07:05 | NUR ---
RECEIVED PT FROM PROFESSOR OF GERMAN. PT IS ALERT AND ORIENTED AND UP ADLIB. IV TO THE LEFT HAND SL. PRN 2L OF O2. PT HAS QH BLOOD SUGARS. PT HAS A DRESSING TO THE RIGHT GROIN.
--- NOTE | 2019-10-20 08:12 | NUR ---
ADMINISTERED MORNING MEDICATION AT THIS TIME. PT HAD NO TROUBLE SWALLOWING. ALSO PROVIDED PRN DILAUDID FOR PAIN OF 10/10. ASSESSED BLOOD SUGAR, 118. PT IS RESTING COMFORTABLY IN BED. DENIES ANY NEEDS AT THIS TIME. WILL CONTINUE TO MONITOR.
[2019-10-20 08:17] LABS: APTT 29.7 SECONDS (22.8-39.4); INR 1.02 (0.85-1.17); PROTIME 13.3 SECONDS (11.6-15.0)
[2019-10-20 08:33] VITALS: BP 144/64
--- NOTE | 2019-10-20 11:10 | NUR ---
ADMINISTERED MEDICATION AT THIS TIME, NO DIFFICULTY. ASSESSED BLOOD SUGAR, 141, DOES NOT REQUIRE INSULIN. PT RESTING COMFORTABLY IN BED WITH EYES CLOSED. WILL CONTINUE TO MONITOR.
--- NOTE | 2019-10-20 12:24 | NUR ---
PT UPRIGHT IN BED EATING LUNCH. NO S/S OF DISTRESS. DENIES ANY NEEDS. WILL CONITNUE TO MONITOR.
--- NOTE | 2019-10-20 13:25 | NUR ---
ADMINISTERED PRN MEDICATION FOR PAIN LEVEL OF 8/10. TOLERATED WELL. PT RESTING COMFORTABLY IN BED. REQUESTED A SODA, PROVIDED PROMPTLY. DENIES ANY OTHER NEEDS AT THIS TIME. WILL CONTINUE TO MONITOR.
--- NOTE | 2019-10-20 16:21 | NUR ---
ADMINSITERED SCHEDULED MEDICATION, NO DIFFICULTIES. ASSESSED BLOOD SUGAR, 187. REQUIRED 4 UNITS INSULIN PER SLIDING SCALE, ADMINISTEREDIN LEFT ARM. PT IS RESTING COMFORTABLY. DENIES ANY NEEDS AT THIS TIME. WILL CONTINUE TO MONITOR.
--- NOTE | 2019-10-20 17:27 | NUR ---
ADMINISTERED MEDICATION, NO DIFFICULTY. PT RESTING COMFORTABLY IN BED. DENIES ANY NEEDS. WILL CONTINUE TO MONITOR.
--- NOTE | 2019-10-20 18:33 | NUR ---
I have reviewed this patient and I concur with the Shift Assessment completed by the Licensed Practical Nurse today this shift.
--- NOTE | 2019-10-20 18:47 | NUR ---
ADMINISTERED PRN MEDICATION FOR PAIN LEVEL OF 8/10. TOLERATED WELL. RESTING COMFORTABLY DENIES ANY NEEDS. WILL CONTINUE TO MONITOR.
[2019-10-20 19:15] VITALS: BP 138/75
--- NOTE | 2019-10-20 19:15 | NUR ---
PATIENT RESTING IN BED WITH NO S/S OF DISTRESS. VSS. PATIENT DENIES NEEDS AT THIS TIME. BED IN LOWEST POSITION AND CALL LIGHT WITHIN REACH. ENCOURAGED THE PATIENT TO CALL IF SHE HAS NEEDS. WILL CONTINUE TO MONITOR.
[2019-10-21 03:16] VITALS: BP 114/52
[2019-10-21 05:18] LABS: HEMATOCRIT 34.5 % (36.0-48.0); HEMOGLOBIN 10.8 g/dL (12-16); MCH 28.2 pg (26.0-34.0); MCHC 31.3 g/dL (31.0-37.0); MCV 90.1 fL (80.0-100.0); MEAN PLATELET VOLUME 10.3 fL (7.4-10.4); RBC 3.83 10x6/uL (4.00-5.40); RDW 14.7 % (11.5-14.5)
[2019-10-21 05:29] LABS: ANION GAP 12.4 mmol/L (8-16); CALCIUM 8.9 mg/dL (8.5-10.1); CARBON DIOXIDE 26.5 mmol/L (21.0-32.0); CREATININE - SERUM 1.1 mg/dL (0.6-1.3); POTASSIUM - SERUM 3.9 mmol/L (3.5-5.1)
--- NOTE | 2019-10-21 08:00 | NUR ---
ASSESSMENT PER FLOW SHEET. PATIENT IS WITHOUT DISTRESS.MONITOR FOR NEEDS
[2019-10-21 08:16] VITALS: BP 110/53
[2019-10-21] MEDS ORDERED: CATAPRES0.1 MG PO (11:30)
[2019-10-21] MEDS ORDERED: Levaquin PO (11:31)
[2019-10-21 13:39] VITALS: BP 147/67
--- NOTE | 2019-10-21 14:30 | NUR ---
IV DCD WITH CATH TIP INTACT. DISCHARGE INSTRUCTIONS,STATES UNDERSTANDING.RIDE TO COMME PICK HER UP
--- NOTE | 2019-10-21 14:51 | NUR ---
LEFT UNIT VIA WHEELCHAIR FOR TRANSPORT HOME
--- NOTE | 2019-10-22 07:48 | MORECARE ---
CASE MANAGEMENT DISCHARGE SUMMARY PATIENT: GYPSYEDITH E UNIT: [id number] ADM DATE: 10/14/19 AGE: 53 : 65 SEX: F ROOM/BED: D.2213 AUTHOR: REDDOC PHYSICIAN: REFERRING PHYSICIAN: SELENA AGUERO MD DATE OF SERVICE: 10/22/19 Discharge Plan Patient Name: GYPSY EDITH Facility: [facility]:[place] : 1965 Planned Disposition: Home Anticipated Discharge Date: Discharge Date: 10/21/2019 Expected LOS: Initial Reviewer: [id number] Initial Review Date: 10/14/2019 Generated: 10/22/19 8:48 am DCP- Discharge Planning Updated by [email or web address]: Susan Nguyễn on 10/15/19 11:[address] Patient Name: EDITH BETANCUR Admission Status: ER Accout number: [id number] Admission Date: 10-14-2019 : 1965 Admission Diagnosis: Attending: SELENA AGUERO Current LOS: 1 Anticipated DC Date: Planned Disposition: Home Primary Insurance: [employer] PPO Discharge Planning Comments: CM met with patient to complete initial dc planning assessment. CM educated patient on the CM role and verbal consent given by patient to complete assessment. Patient lives at home with her parents & brother where she is independent with her care. At discharge patient plans to return home and feels this is a safe discharge. Her dad will be her driver license reviewing officer home. CM discussed availability of home health, rehab services, and medical equipment. She has a cane & walker at home. Patient denied known discharge needs at this time. CM will continue to follow and will assist as needed with dc plans/needs. [employer] First: Susan Nguyễn DCPIA - Discharge Planning Initial Assessment Updated by [email or web address]: Susan Nguyễn on 10/15/19 12:48 pm * Is the patient Alert and Oriented? Yes * How many steps to enter\exit or inside your home? 5 steps * PCP FARO * Pharmacy [facility] * Preadmission Environment Home with Family * ADLs Independent * Equipment Cane Rolling Walker * List name and contact numbers for known caregivers / representatives who currently or will assist patient after discharge: ISSAC (FATHER) [phone] * Verbal permission to speak to the caregivers and representatives has been obtained from the patient. N/A * Community resources currently utilized None * Additional services required to return to the preadmission environment? No * Can the patient safely return to the preadmission environment? Yes * Has this patient been hospitalized within the prior 30 days at any hospital? No Last DP export: 10/15/19 11:51 a Patient Name: GYPSY, DECEMBER Page [id number] at 0748 All edits/amendments must be made on the electronic document DICTATION DATE: 10/22/19747 SALES AND MARKETING REPRESENTATIVE: BROOKLYNN 10/22/1948 RPT#: [id number] DC DATE:10/21/19 STATUS: DIS IN [facility] [address] [place] [address] END OF REPORT
--- NOTE | 2019-10-22 07:57 | MORECARE ---
CASE MANAGEMENT DISCHARGE SUMMARY PATIENT: EDITH BETANCUR UNIT: [id number] ADM DATE: 10/14/19 AGE: 53 : 65 SEX: F ROOM/BED: D.2213 AUTHOR: JESSICA MOON PHYSICIAN: REFERRING PHYSICIAN: SELENA AGUERO MD DATE OF SERVICE: 10/22/19 Discharge Plan Patient Name: EDITH BETANCUR Facility: [facility]:[place] : 1965 Planned Disposition: Home Anticipated Discharge Date: Discharge Date: 10/21/2019 Expected LOS: Initial Reviewer: [email or web address] Initial Review Date: 10/14/2019 Generated: 10/22/19 8:56 am Comments DCP- Discharge Planning Updated by [email or web address]: Shanelle Fitch on 10/22/19 6:[address] Patient Name: EDITH BETANCUR Encounter No: [id number] : 1965 Primary Insurance: [employer] [facility] Anticipated DC Date: Planned Disposition: Home External Planned Provider: : LATE ENTRY DCP follow-up note: At discharge patient plans to return home and feels this is a safe discharge. Her dad will be her non emergency services ambulance driver home. Patient and family in agreement with discharge plan. Shanelle Fitch DCP- Discharge Planning Updated by [email or web address]: Susan Nguyễn on 10/15/19 11:[address] Patient Name: EDITH BETANCUR Admission Status: ER Accout number: [id number] Admission Date: 10-14-2019 : 1965 Admission Diagnosis: Attending: SELENA AGUERO Current LOS: 1 Anticipated DC Date: Planned Disposition: Home Primary Insurance: [employer] [facility] PPO Discharge Planning Comments: CM met with patient to complete initial dc planning assessment. CM educated patient on the CM role and verbal consent given by patient to complete assessment. Patient lives at home with her parents & brother where she is independent with her care. At discharge patient plans to return home and feels this is a safe discharge. Her dad will be her non emergency services ambulance driver home. CM discussed availability of home health, rehab services, and medical equipment. She has a cane & walker at home. Patient denied known discharge needs at this time. CM will continue to follow and will assist as needed with dc plans/needs. Legislative Aide: Susan Nguyễn DCPIA - Discharge Planning Initial Assessment Updated by [email or web address]: Susan Nguyễn on 10/15/19 12:48 pm * Is the patient Alert and Oriented? Yes * How many steps to enter\exit or inside your home? 5 steps * PCP FARO * Pharmacy [facility] * Preadmission Environment Home with Family * ADLs Independent * Equipment Cane Rolling Walker * List name and contact numbers for known caregivers / representatives who currently or will assist patient after discharge: ISSAC (FATHER) [phone] * Verbal permission to speak to the caregivers and representatives has been obtained from the patient. N/A * Community resources currently utilized None * Additional services required to return to the preadmission environment? No * Can the patient safely return to the preadmission environment? Yes * Has this patient been hospitalized within the prior 30 days at any hospital? No Last DP export: 10/22/19 6:48 a Patient Name: GYPSY, DECEMBER Page [phone] at 0757 All edits/amendments must be made on the electronic document DICTATION DATE: 10/22/19 075 ACID CONDITIONING WORKER: BROOKLYNN 10/22/19 0756 RPT#: [id number] DC DATE:10/21/19 STATUS: DIS IN [facility] [address] [place] [address] END OF REPORT
== END 2019-10-21 14:51 | disposition home or self-care (01) | DRG 299 ==
LOC: D.ER 13:26 → D.MS 16:47 → D.ICU 10-17 09:49 → D.MS 10-19 14:43
PROVIDERS: Family Medicine; Specialist; Thoracic Surgery (Cardiothoracic Vascular Surgery); ADMIT Internal Medicine Nephrology; ATTEND Internal Medicine Nephrology
DX: I74.3 Embolism and thrombosis of arteries of the lower extremities (principal); N17.0 Acute kidney failure with tubular necrosis; N39.0 Urinary tract infection, site not specified; M31.9 Necrotizing vasculopathy, unspecified; E11.51 Type 2 diabetes mellitus with diabetic peripheral angiopathy without gangrene; E11.69 Type 2 diabetes mellitus with other specified complication; E86.0 Dehydration; Z91.14 Patient's other noncompliance with medication regimen; I10 Essential (primary) hypertension; E78.5 Hyperlipidemia, unspecified; I25.10 Atherosclerotic heart disease of native coronary artery without angina pectoris; J44.9 Chronic obstructive pulmonary disease, unspecified; J45.909 Unspecified asthma, uncomplicated; E11.65 Type 2 diabetes mellitus with hyperglycemia; I70.222 Atherosclerosis of native arteries of extremities with rest pain, left leg; I70.201 Unspecified atherosclerosis of native arteries of extremities, right leg; N14.1 Nephropathy induced by other drugs, medicaments and biological substances; T50.8X5A Adverse effect of diagnostic agents, initial encounter

== ENCOUNTER → 2019-11-26 07:59 | Outpatient (CLI) | payer OTHER ==
[2019-10-17 13:45] VITALS: BMI 26.6
[~2019-11-26 07:59] MED LIST changes: +DIOVAN40 MG PO; +Levaquin PO; +VASCEPA1 GM PO
[2019-11-26 08:28] LABS: ALBUMIN 3.3 g/dL (3.4-5.0); BILIRUBIN - DIRECT 0.11 mg/dL (0.00-0.30); BILIRUBIN - INDIRECT 0.12 mg/dL (0.00-1.00); BILIRUBIN - TOTAL 0.23 mg/dL (0.2-1.3); PROTEIN - SERUM 8.2 g/dL (6.4-8.2)
== END | disposition home or self-care (01) ==
LOC: D.US 07:59
PROVIDERS: ATTEND Internal Medicine Gastroenterology
DX: K86.2 Cyst of pancreas (principal); I73.9 Peripheral vascular disease, unspecified

== ENCOUNTER 2019-12-10 17:11 | Observation (INO) | payer OTHER ==
[~2019-12-10] VITALS: Ht 170.2 cm; Wt 85.6 kg
[2019-12-10 18:15] VITALS: BP 197/87
[2019-12-10 19:24] LABS: BASOPHILS 0.6 % (0-2); EOSINOPHILS 3.5 % (0-7); HEMATOCRIT 41.2 % (36.0-48.0); HEMOGLOBIN 13.5 g/dL (12-16); IMMATURE GRANULOCYTES 0.3 % (0-5); LYMPHOCYTES 29.5 % (15-50); MCH 29.7 pg (26.0-34.0); MCHC 32.8 g/dL (31.0-37.0); MCV 90.5 fL (80.0-100.0); MONOCYTES 3.2 % (2-11); NEUTROPHILS 62.9 % (40-80); RBC 4.55 10x6/uL (4.00-5.40); RDW 15.4 % (11.5-14.5); WBC 12.3 10x3/uL (4.8-10.8)
[2019-12-10 19:33] LABS: PLATELET COUNT 244 10x3/uL (130-400)
[2019-12-10 19:41] LABS: APTT 31.3 SECONDS (22.8-39.4); INR 0.97 (0.85-1.17); PROTIME 12.9 SECONDS (11.6-15.0)
[2019-12-10 19:43] LABS: D-DIMER-QUANTITATIVE 1.45 ug/mLFEU (0.20-0.54)
[2019-12-10 19:44] LABS: CALC OSMOLALITY 273 mosm/kg (275-300); CALCIUM 8.7 mg/dL (8.5-10.1); CARBON DIOXIDE 28.1 mmol/L (21.0-32.0); CHLORIDE - SERUM 98 mmol/L (98-107); CREATININE - SERUM 1.1 mg/dL (0.6-1.3); POTASSIUM - SERUM 3.2 mmol/L (3.5-5.1); SODIUM 133 mmol/L (136-145); UREA NITROGEN 11 mg/dL (7-18); eGFR NON AFRICAN AMERICAN 55 mL/min (90-120)
[2019-12-10 19:45] LABS: GLUCOSE 258 mg/dL (74-106)
--- NOTE | 2019-12-10 19:59 | NUR ---
PT PROVIDED WITH BLANKET AT THIS TIME.
[2019-12-10 20:06] LABS: ALBUMIN 3.1 g/dL (3.4-5.0); ALKALINE PHOSPHATASE 288 U/L (30-120); ALT (SGPT) 27 U/L (10-68); BILIRUBIN - TOTAL 0.44 mg/dL (0.2-1.3); CKMB 1.7 U/L (0.0-3.6); CREATINE KINASE 102 UL (21-215); PROTEIN - SERUM 7.4 g/dL (6.4-8.2)
[2019-12-10 20:24] LABS: TROPONIN-I 0.067 ng/mL (0.000-0.060)
--- NOTE | 2019-12-10 21:28 | NUR ---
PT AMBULATED TO RESTROOM INDEPENDENTLY.
[2019-12-10 22:50] LABS: CKMB 1.8 U/L (0.0-3.6); CREATINE KINASE 87 UL (21-215)
[2019-12-10 22:52] LABS: TROPONIN-I 0.075 ng/mL (0.000-0.060)
--- NOTE | 2019-12-10 23:45 | NUR ---
ARRIVED FROM ER TO BED BED LOW AND LOCKED AND CALL LIGHT GIVEN PT DENIES EVER HAVING CHEST PAIN TONIGHT STATES ITS HIP AND LEFT LEG PAIN PUT ON TELE AND BENOIT GIL NOTIFIED
[2019-12-11 00:30] VITALS: BP 184/85
[2019-12-11 04:39] VITALS: BP 149/68
[2019-12-11 05:54] LABS: BASOPHILS 0.8 % (0-2); EOSINOPHILS 3.6 % (0-7); HEMOGLOBIN 13.4 g/dL (12-16); IMMATURE GRANULOCYTES 0.4 % (0-5); LYMPHOCYTES 38.3 % (15-50); MCH 29.3 pg (26.0-34.0); MCHC 31.9 g/dL (31.0-37.0); MCV 91.7 fL (80.0-100.0); MEAN PLATELET VOLUME 10.9 fL (7.4-10.4); NEUTROPHILS 52.9 % (40-80); PLATELET COUNT 267 10x3/uL (130-400); RBC 4.58 10x6/uL (4.00-5.40); RDW 15.6 % (11.5-14.5); WBC 12.3 10x3/uL (4.8-10.8)
[2019-12-11 06:32] LABS: CALCIUM 8.3 mg/dL (8.5-10.1); CARBON DIOXIDE 27.7 mmol/L (21.0-32.0); CHLORIDE - SERUM 102 mmol/L (98-107); CKMB 1.4 U/L (0.0-3.6); CREATINE KINASE 83 UL (21-215); MAGNESIUM - SERUM 1.7 mg/dL (1.8-2.4); PHOSPHOROUS 3.6 mg/dL (2.5-4.9); SODIUM 137 mmol/L (136-145); UREA NITROGEN 10 mg/dL (7-18); eGFR NON AFRICAN AMERICAN 61 mL/min (90-120)
[2019-12-11 06:35] LABS: CALC OSMOLALITY 276 mosm/kg (275-300); GLUCOSE 177 mg/dL (74-106); TROPONIN-I 0.085 ng/mL (0.000-0.060)
[2019-12-11 07:38] VITALS: BP 138/73
[2019-12-11 08:28] VITALS: Ht 170.2 cm; Wt 85.6 kg
[2019-12-11 09:43] LABS: BILIRUBIN NEGATIVE (NEGATIVE); GLUCOSE 250 mg/dL (NEGATIVE); KETONE NEGATIVE (NEGATIVE); NITRITE NEGATIVE (NEGATIVE); UROBILINOGEN NORMAL (NORMAL); WHITE CELLS - URINE RARE /hpf (NEGATIVE)
[2019-12-11 09:44] LABS: BACTERIA FEW /hpf (NEGATIVE); EPITHELIAL CELLS 0-5 /hpf (0-5)
[2019-12-11 09:56] LABS: CKMB 2.1 U/L (0.0-3.6); CREATINE KINASE 88 UL (21-215)
[2019-12-11 09:57] LABS: TROPONIN-I 0.068 ng/mL (0.000-0.060)
[2019-12-11 11:18] VITALS: BP 133/65
[2019-12-11 15:39] VITALS: BP 106/63
--- NOTE | 2019-12-11 19:17 | NUR ---
PATIENT IS ALERT AND ORIENTED, RESTING COMFORTABLY IN BED. RESPIRATIONS ARE EVEN AND UNLABORED. NO S/S OF DISTRESS. NO C/O PAIN. CALL LIGHT WITHIN REACH. WILL CPOC.
[2019-12-11 20:00] VITALS: BP 120/60
[2019-12-12] VITALS: BP 108/49
[2019-12-12 04:00] VITALS: BP 93/42
[2019-12-12 07:10] LABS: ANION GAP 11.2 mmol/L (8-16); CALCIUM 8.7 mg/dL (8.5-10.1); CARBON DIOXIDE 26.7 mmol/L (21.0-32.0); CREATININE - SERUM 1.2 mg/dL (0.6-1.3); POTASSIUM - SERUM 3.9 mmol/L (3.5-5.1)
[2019-12-12 07:28] LABS: BASOPHILS 0.7 % (0-2); EOSINOPHILS 4.4 % (0-7); HEMATOCRIT 38.2 % (36.0-48.0); HEMOGLOBIN 12.1 g/dL (12-16); IMMATURE GRANULOCYTES 0.4 % (0-5); LYMPHOCYTES 39.5 % (15-50); MCH 29.5 pg (26.0-34.0); MCHC 31.7 g/dL (31.0-37.0); MCV 93.2 fL (80.0-100.0); MEAN PLATELET VOLUME 10.7 fL (7.4-10.4); MONOCYTES 3.9 % (2-11); NEUTROPHILS 51.1 % (40-80); PLATELET COUNT 281 10x3/uL (130-400); RDW 15.7 % (11.5-14.5)
[2019-12-12 09:25] VITALS: BP 89/35
[2019-12-12] MEDS ORDERED: VIBRAMYCIN 100100 MG PO (09:38)
[2019-12-12] MEDS ORDERED: ISOSORBIDE MONO60 M1 PO (09:39)
--- NOTE | 2019-12-12 10:33 | EC ---
PATIENT:GYPSY DATE OF SERVICE: 12/10/19 SEX: F MEDICAL RECORD: [id number] DATE OF : [birth year] LOCATION:D.M2 D.212 AGE OF PATIENT: 54 ADMISSION DATE: 12/10/19 REFERRING PHYSICIAN: INTERPRETING PHYSICIAN: MAURICIO SALINAS MD ECHOCARDIOGRAM REPORT ECHO CHARGES 4 ECHO COMPLETE Date: 12/11/19 CLINICAL DIAGNOSIS: CAD ECHOCARDIOGRAPHIC MEASUREMENTS (adult normal given) AC root (d.<3.7cm) 2.7 cm LV Septum d (<1.2 cm> 1.6 cm Valve Excursion 1.5 cm LV Septum (systole) 1.9 cm Left Atria (s.<4.0cm> 4.0 cm LVPW d(<1.2cm) 1.6 cm RV (d.<2.3cm) 2.1 cm LVPW (sytole) 2.0 cm LV diastole(<5.6CM) 4.3 cm MV E-F(>70mm/sec) cm LV systole 2.6 cm LVOT Diameter 1.7 cm MV exc.(>10mm) cm Est.ejection fraction (50-75%) % DOPPLER: LVIT cm/sec A 78.0 cm/sec E 105 cm/sec LA cm/sec RVSP 25.3 mmHg LVOT 91.0 cm/sec AOP1/2T m/s Asc. Ao 199 cm/sec RVOT 107 cm/sec RA cm/sec PA 108 cm/sec AV Gradient Peak 16.0 mmHg AV Mean 8.3 mmHg AV Area 1.3 cm MV Gradient Peak 5.1 mmHg MV Mean 2.0 mmHg MV Area cm COMMENTS: Institutional Research Director: 1 CHELE BEARDOE Promotions Producer: 3 Dr. Frederick TAPE# PACS Pericardial Effusion Y DATE OF SERVICE: Adequate 2D, color flow imaging, spectral Doppler, and M-Mode. LVH is present. LV internal dimension is normal. Wall motion is normal. EF is greater than or equal to 55%. Aortic valve is tricuspid. No evidence of stenosis by Doppler interrogation. Left atrium is normal at 4.0 cm. Mitral valve shows no prolapse. Trace MR. Right-sided chambers are grossly normal. Trace TR. ECHOCARDIOGRAM REPORT [id number] TRANSINT:[id number] Voice Confirmation ID: [id number] DOCUMENT ID: [id number] MAURICIO SALINAS MD at 1033 CC: [id number] DICTATION DATE: 12/12/19815 UPSETTER HELPER: 12/12/19 0955 ADM IN [facility] [address] [place] [id number]
--- NOTE | 2019-12-12 10:48 | NUR ---
IV AND TELEMETRY DCD. DC PLANS GIVEN. UNDERSTANDING VOICED. ESCORTED TO CAR BY W/C.
== END 2019-12-12 10:49 | disposition home or self-care (01) ==
LOC: D.ER 17:11 → D.M2 22:01 → OBSVTIME 22:01 → D.M2 22:01
PROVIDERS: Family Medicine; ADMIT Internal Medicine Nephrology; ATTEND Internal Medicine Nephrology
DX: R79.89 Other specified abnormal findings of blood chemistry (principal); L03.116 Cellulitis of left lower limb; I10 Essential (primary) hypertension; E78.5 Hyperlipidemia, unspecified; I25.10 Atherosclerotic heart disease of native coronary artery without angina pectoris; E11.9 Type 2 diabetes mellitus without complications; E03.9 Hypothyroidism, unspecified; J45.909 Unspecified asthma, uncomplicated; G89.29 Other chronic pain; G43.909 Migraine, unspecified, not intractable, without status migrainosus; I73.9 Peripheral vascular disease, unspecified; R60.0 Localized edema

== ENCOUNTER 2020-04-20 15:40 | Inpatient (IN) | payer OTHER ==
[~2020-04-20] VITALS: Ht 170.2 cm; Wt 88.2 kg
[~2020-04-20 15:40] MED LIST changes: +VIBRAMYCIN 100100 MG PO
[2020-04-20 16:49] VITALS: BP 124/63
[2020-04-20 17:12] LABS: EOSINOPHILS 3.7 % (0-7); HEMATOCRIT 36.8 % (36.0-48.0); HEMOGLOBIN 12.6 g/dL (12-16); IMMATURE GRANULOCYTES 0.4 % (0-5); LYMPHOCYTES 34.4 % (15-50); MCH 30.6 pg (26.0-34.0); MCHC 34.2 g/dL (31.0-37.0); MCV 89.3 fL (80.0-100.0); MEAN PLATELET VOLUME 9.7 fL (7.4-10.4); MONOCYTES 4.2 % (2-11); NEUTROPHILS 56.3 % (40-80); PLATELET COUNT 228 10x3/uL (130-400); RBC 4.12 10x6/uL (4.00-5.40); RDW 15.2 % (11.5-14.5); WBC 12.6 10x3/uL (4.8-10.8)
[2020-04-20 17:31] LABS: ANION GAP 12.4 mmol/L (8-16); CALCIUM 8.4 mg/dL (8.5-10.1); CARBON DIOXIDE 24.9 mmol/L (21.0-32.0); CREATININE - SERUM 1.3 mg/dL (0.6-1.3); POTASSIUM - SERUM 4.3 mmol/L (3.5-5.1)
[2020-04-20 17:37] LABS: ALBUMIN 3.2 g/dL (3.4-5.0); BILIRUBIN - TOTAL 0.39 mg/dL (0.2-1.3); MAGNESIUM - SERUM 1.5 mg/dL (1.8-2.4); PROTEIN - SERUM 7.8 g/dL (6.4-8.2)
--- NOTE | 2020-04-20 19:30 | NUR ---
PATIENT REQUESTED PAIN MEDICATION AT THIS TIME.
--- NOTE | 2020-04-20 19:51 | NUR ---
PLACED 20G IV TO PATIENT'S RIGHT FA ON THE SECOND ATTEMPT.
[2020-04-20 20:00] VITALS: BP 165/78
--- NOTE | 2020-04-20 20:00 | NUR ---
PATIENT RESTING IN BED WITH NO S/S OF DISTRESS. COMPLETED ADMISSION, ADMINISTERED MEDS PER ORDERS, GAVE PATIENT INCENTIVE SPIROMETER AND INSTRUCTED ON USE, PLACED SCD'S ON PATIENT AND EXPLAINED USE. PATIENT DENIES OTHER NEEDS. ENCOURAGED THE PATIENT TO CALL IF SHE HAS NEEDS. WILL CONTINUE TO MONITOR.
[2020-04-20 20:01] VITALS: BP 124/63; BMI 29.3
[2020-04-20] MEDS ORDERED: SINEQUAN50 MG PO (20:22)
[2020-04-21 04:00] VITALS: BP 180/91; BP 90/40
[2020-04-21 08:51] VITALS: BP 186/93
[2020-04-21 10:37] LABS: BASOPHILS 0.2 % (0-2); EOSINOPHILS 0.1 % (0-7); HEMATOCRIT 36.6 % (36.0-48.0); HEMOGLOBIN 11.9 g/dL (12-16); IMMATURE GRANULOCYTES 0.4 % (0-5); LYMPHOCYTES 10.4 % (15-50); MCHC 32.5 g/dL (31.0-37.0); MCV 89.1 fL (80.0-100.0); MEAN PLATELET VOLUME 10.1 fL (7.4-10.4); MONOCYTES 1.3 % (2-11); NEUTROPHILS 87.6 % (40-80); PLATELET COUNT 233 10x3/uL (130-400); RBC 4.11 10x6/uL (4.00-5.40); RDW 15.2 % (11.5-14.5)
[2020-04-21 10:45] LABS: ALBUMIN 3.1 g/dL (3.4-5.0); ANION GAP 13.1 mmol/L (8-16); BILIRUBIN - TOTAL 0.45 mg/dL (0.2-1.3); CALCIUM 8.3 mg/dL (8.5-10.1); CARBON DIOXIDE 26.1 mmol/L (21.0-32.0); CREATININE - SERUM 1.4 mg/dL (0.6-1.3); POTASSIUM - SERUM 4.2 mmol/L (3.5-5.1); PROTEIN - SERUM 7.9 g/dL (6.4-8.2)
[2020-04-21 11:51] VITALS: BP 101/50; BP 163/80
[2020-04-21 15:01] VITALS: Ht 170.2 cm; Wt 88.2 kg
[2020-04-21 18:09] VITALS: BP 170/82
[2020-04-21 20:00] VITALS: BP 125/55
--- NOTE | 2020-04-21 20:00 | NUR ---
PT SITTING UP IN BED WITHOUT DISTRESS, AOX4. IV RIGHT FA INFUSING NS @ 100. DENIES NEEDS AT THIS TIME. CL IN REACH, WILL CTM
[2020-04-22 04:00] VITALS: BP 120/61
[2020-04-22 06:09] LABS: BASOPHILS 0.1 % (0-2); EOSINOPHILS 0 % (0-7); HEMATOCRIT 32.3 % (36.0-48.0); HEMOGLOBIN 10.6 g/dL (12-16); IMMATURE GRANULOCYTES 0.7 % (0-5); LYMPHOCYTES 12.6 % (15-50); MCH 29.1 pg (26.0-34.0); MCHC 32.8 g/dL (31.0-37.0); MCV 88.7 fL (80.0-100.0); MEAN PLATELET VOLUME 10.1 fL (7.4-10.4); MONOCYTES 4.4 % (2-11); NEUTROPHILS 82.2 % (40-80); PLATELET COUNT 233 10x3/uL (130-400); RBC 3.64 10x6/uL (4.00-5.40); RDW 15.3 % (11.5-14.5)
[2020-04-22 06:20] LABS: WBC 15.8 10x3/uL (4.8-10.8)
[2020-04-22 06:50] LABS: ALBUMIN 2.7 g/dL (3.4-5.0); ANION GAP 13.7 mmol/L (8-16); BILIRUBIN - TOTAL 0.27 mg/dL (0.2-1.3); CALCIUM 7.7 mg/dL (8.5-10.1); CARBON DIOXIDE 22.9 mmol/L (21.0-32.0); CREATININE - SERUM 1.1 mg/dL (0.6-1.3); MAGNESIUM - SERUM 1.6 mg/dL (1.8-2.4); POTASSIUM - SERUM 4.6 mmol/L (3.5-5.1); PROTEIN - SERUM 6.9 g/dL (6.4-8.2)
[2020-04-22 09:21] VITALS: BP 150/67; BP 99/45
[2020-04-22 11:38] VITALS: BP 118/78; BP 92/52
[2020-04-22 12:28] VITALS: BP 130/72
--- NOTE | 2020-04-22 15:56 | MORECARE ---
CASE MANAGEMENT DISCHARGE SUMMARY PATIENT: GYPSYEDITH E UNIT: [id number] ADM DATE: 04/20/20 AGE: 54 : 65 SEX: F ROOM/BED: D.2236 AUTHOR: JESSICA MOON PHYSICIAN: REFERRING PHYSICIAN: MORGAN AYOUB DO DATE OF SERVICE: 04/22/20 Discharge Plan Patient Name: GYPSYDecember Facility: [facility]:[place] : 1965 Planned Disposition: Anticipated Discharge Date: Discharge Date: Expected LOS: Initial Reviewer: [email or web address] Initial Review Date: 04/20/2020 Generated: 04/22/20 4:56 pm Comments DCP- Discharge Planning Updated by [id number]: Nita Barker on 04/22/20 2:[address] Patient Name: EDITH BETANCUR Admission Status: Elective Accout number: [id number] Admission Date: 04-20-2020 : 1965 Admission Diagnosis:CHRONIC OBSTRUCTIVE PULMONARY DISEASE W (ACUTE) EXACERB Attending: MORGAN AYOUB Current LOS: 2 Anticipated DC Date: Planned Disposition: Primary Insurance: [employer] PPO Discharge Planning Comments: CM met with patient at bedside after explaining CM role and obtaining verbal consent. CM discussed availability / needs of home health, REHAB and medical equipment. PATIENT DENIES ANY DISCHARGE NEEDS. STATES HAS O2, NEBS AND PORTABLE OXYGEN WITH [facility]. CM TO FOLLOW AND ASSIST NEEDED. Insurance Executive: Nita Barker DCPIA - Discharge Planning Initial Assessment Updated by [email or web address]: Nita Barker on 04/22/20 3:55 pm * Is the patient Alert and Oriented? Yes * PCP ANITRA * [facility] * Preadmission Environment Home with Family * ADLs Independent * Other Equipment SHOWER CHAIR, O2, NEBS, PORT * Community resources currently utilized None * Additional services required to return to the preadmission environment? No * Can the patient safely return to the preadmission environment? Yes * Has this patient been hospitalized within the prior 30 days at any hospital? No Patient Name: GYPSYDecember Page [phone] at 1556 All edits/amendments must be made on the electronic document DICTATION DATE: 04/22/201555 PURIFICATION DIRECTOR: BROOKLYNN 04/22/201555 RPT#: [id number] DC DATE: STATUS: ADM IN [facility] [address] [place] [address] END OF REPORT
[2020-04-22 16:37] VITALS: BP 158/79
--- NOTE | 2020-04-22 17:56 | NUR ---
PT C/O SOB. VS 147/74 P 93 R 28 99% 2 LNC. LUNGS CLEAR BILAT EXCEPT FOR EXP WHEEZE LEFT UPPER LOBE. RESP THERAPY CALLED AND GIVING TREATMENT EARLY. LEVAQUIN HANGING BUT PT IS NOT COMPLAINING OF ITCHING. STATES RESP TREATMENTS ARE HELPING
[2020-04-22 20:00] VITALS: BP 145/76
--- NOTE | 2020-04-22 22:10 | NUR ---
A&O X 4, AMBULATING IN ROOM. PT REPORTS SOB, AND INCREASED COUGHING WITHOUT PRODUCTION. SPO2 97% ON 2L. RT NOTIFIED FOR PRN TX. NO FURTHER NEEDS VOICED, CTM.
[2020-04-23 04:00] VITALS: BP 133/62
--- NOTE | 2020-04-23 04:13 | NUR ---
I have reviewed this patient and I concur with the Shift Assessment completed by the Licensed Practical Nurse today this shift.
[2020-04-23 06:26] LABS: BASOPHILS 0.1 % (0-2); EOSINOPHILS 0.2 % (0-7); HEMATOCRIT 32.5 % (36.0-48.0); HEMOGLOBIN 10.6 g/dL (12-16); IMMATURE GRANULOCYTES 1.2 % (0-5); LYMPHOCYTES 32.2 % (15-50); MCHC 32.6 g/dL (31.0-37.0); MEAN PLATELET VOLUME 9.9 fL (7.4-10.4); MONOCYTES 6.5 % (2-11); NEUTROPHILS 59.8 % (40-80); PLATELET COUNT 254 10x3/uL (130-400); RBC 3.65 10x6/uL (4.00-5.40); RDW 15.9 % (11.5-14.5); WBC 16.3 10x3/uL (4.8-10.8)
[2020-04-23 06:48] LABS: ALBUMIN 2.9 g/dL (3.4-5.0); BILIRUBIN - TOTAL 0.17 mg/dL (0.2-1.3); CALCIUM 8.9 mg/dL (8.5-10.1); CARBON DIOXIDE 24.9 mmol/L (21.0-32.0); CREATININE - SERUM 1.4 mg/dL (0.6-1.3); MAGNESIUM - SERUM 1.9 mg/dL (1.8-2.4); POTASSIUM - SERUM 3.9 mmol/L (3.5-5.1); PROTEIN - SERUM 7.2 g/dL (6.4-8.2)
--- NOTE | 2020-04-23 06:55 | NUR ---
A&O RESTING IN BED WITH EYES OPEN. NO C/O PAIN. NO S/S OF ACUTE DISTRESS NOTED. ON 2L O2, NC. IV TO RIGHT WRIST, NS INFUSING @ 100ML/HR. SITE PATENT WITHOUT REDNESS OR SWELLING. DENIES ANY NEEDS AT THIS TIME. CALL LIGHT IN REACH. WILL CONTINUE TO MONITOR.
[2020-04-23 08:22] VITALS: BP 112/53
[2020-04-23] MEDS ORDERED: FLORAJEN3 CAPS460 MG PO (10:42)
[2020-04-23] MEDS ORDERED: PREDNISONE10 MG PO (11:49)
[2020-04-23] MEDS ORDERED: MUCINEX600 MG PO (11:52)
[2020-04-23 12:04] VITALS: BP 120/60
--- NOTE | 2020-04-23 13:07 | NUR ---
PATIENT UP IN CHAIR EATING. AWAITING DISCHARGE PAPERS. DENIES PAIN OR NEEDS AT THIS TIME. CALL LIGHT IN REACH. FREE FROM SIGNS OF DISTRESS. WILL CONTINUE TO MONITOR.
--- NOTE | 2020-04-23 14:07 | NUR ---
DISCHARGED PATIENT HOME VIA WHEELCHAIR WITH FAMILY. DISCONTINUED IV CATHETER TIP INTACT. WENT OVER DISCHARGE INSTRUCTIONS WITH PATIENT, VERBALIZED UNDERSTANDING. DENIES ANYTHING FURTHER.
[2020-04-23 19:08] LABS: IMMUNOGLOBULIN E 516 IU/mL (6-495)
--- NOTE | 2020-04-24 09:25 | MORECARE ---
CASE MANAGEMENT DISCHARGE SUMMARY PATIENT: GYPSYEDITH E UNIT: [id number] ADM DATE: 04/20/20 AGE: 54 : 65 SEX: F ROOM/BED: D.2236 AUTHOR: JESSICA MOON PHYSICIAN: REFERRING PHYSICIAN: MORGAN AYOUB DO DATE OF SERVICE: 04/24/20 Discharge Plan Patient Name: GYPSY EDITH Facility: [facility]:[place] : 1965 Planned Disposition: Anticipated Discharge Date: Discharge Date: 04/23/2020 Expected LOS: Initial Reviewer: [email or web address] Initial Review Date: 04/20/2020 Generated: 04/24/20 10:24 am Comments DCP- Discharge Planning Updated by [email or web address]: Nita Barker on 04/22/20 2:[address] Patient Name: EDITH BETANCUR Admission Status: Elective Accout number: [id number] Admission Date: 04-20-2020 : 1965 Admission Diagnosis:CHRONIC OBSTRUCTIVE PULMONARY DISEASE W (ACUTE) EXACERB Attending: MORGAN AYOUB Current LOS: 2 Anticipated DC Date: Planned Disposition: Primary Insurance: [facility] PPO Discharge Planning Comments: CM met with patient at bedside after explaining CM role and obtaining verbal consent. CM discussed availability / needs of home health, REHAB and medical equipment. PATIENT DENIES ANY DISCHARGE NEEDS. STATES HAS O2, NEBS AND PORTABLE OXYGEN WITH [facility]. CM TO FOLLOW AND ASSIST NEEDED. Rubber Tubing Backer: Nita Barker DCPIA - Discharge Planning Initial Assessment Updated by [id number]: Nita Barker on 04/22/20 3:55 pm * Is the patient Alert and Oriented? Yes * PCP ANITRA * [facility] * Preadmission Environment Home with Family * ADLs Independent * Other Equipment SHOWER CHAIR, O2, NEBS, PORT * Community resources currently utilized None * Additional services required to return to the preadmission environment? No * Can the patient safely return to the preadmission environment? Yes * Has this patient been hospitalized within the prior 30 days at any hospital? No Last DP export: 04/22/20 2:56 p Patient Name: GYPSY DECEMBER Page [phone] at 0925 All edits/amendments must be made on the electronic document DICTATION DATE: 04/24/20923 RN FIRST ASSIST: BROOKLYNN 04/24/20923 RPT#: [id number] DC DATE:04/23/20 STATUS: DIS IN [facility] [address] [place] [place] [address] END OF REPORT
== END 2020-04-23 14:09 | disposition home or self-care (01) | DRG 202 ==
LOC: D.MS 15:40
PROVIDERS: Family Medicine Adult Medicine; Internal Medicine Pulmonary Disease; ADMIT Family Medicine; ATTEND Family Medicine
DX: J20.9 Acute bronchitis, unspecified (principal); J44.1 Chronic obstructive pulmonary disease with (acute) exacerbation; J44.0 Chronic obstructive pulmonary disease with (acute) lower respiratory infection; E87.1 Hypo-osmolality and hyponatremia; G45.9 Transient cerebral ischemic attack, unspecified; K21.9 Gastro-esophageal reflux disease without esophagitis; G47.33 Obstructive sleep apnea (adult) (pediatric); E03.9 Hypothyroidism, unspecified; I10 Essential (primary) hypertension; E11.40 Type 2 diabetes mellitus with diabetic neuropathy, unspecified; D50.9 Iron deficiency anemia, unspecified; E83.42 Hypomagnesemia; F41.8 Other specified anxiety disorders; I25.10 Atherosclerotic heart disease of native coronary artery without angina pectoris; E55.9 Vitamin D deficiency, unspecified; M19.90 Unspecified osteoarthritis, unspecified site; K31.84 Gastroparesis